=== PATIENT | male | born 1955 | race African-American/Black ===

== ENCOUNTER 2016-08-29 07:18 | Emergency (ER) | payer OTHER ==
[~2016-08-29] VITALS: Ht 177.8 cm; Wt 120.0 kg
[~2016-08-29 07:18] MED LIST: CEPH500C3 PO; IBUP800T23 PO; LISI-357 PO; POLY10O LEFT EYE; [UNRECOGNIZED DRUG - REMARK]
[2016-08-29 07:20] VITALS: BP 148/72; PULSE 83; RESP 17; TEMP 97.8; O2SAT 95
[2016-08-29] MEDS ORDERED: HYDR-2374 PO (07:48)
--- NOTE | 2016-08-29 07:48 | PD ---
HPI Chief Complaint: Bite or Sting Time Seen by Provider: 07:46 Travel History International Travel<30 days: No Contact w/Intl Traveler<30days: No Traveled to known affect area: No History of Present Illness HPI 60-year-old male presents emergency Department with complaint of dog bite wound to his left lower extremity that happened this morning. His dog were in a fight and he was trying to break them up and his leg got in between and he was bitten. He does not know if he is up-to-date on his tetanus vaccination. He denies paresthesias, loss of sensation, decreased range motion, decreased strength to the the affected extremity. Denies fever, chills, nausea, vomiting. Apply pressure to control bleeding. Has not taken any medications to alleviate his symptoms. No known allergies. No other modifying factors or associated signs and symptoms. PFSH Past Medical History Arthritis: Yes Blood Disorders: No Cancer: No Cardiovascular Problems: No Diabetes: No Diminished Hearing: No Endocrine: No Gastrointestinal Disorders: No Genitourinary: No Immune Disorder: No Musculoskeletal: No Neurologic: No Psychiatric: No Respiratory: No Thyroid Disease: No Past Surgical History Other Surgery: No Social History Alcohol Use: No Tobacco Use: Yes (/2 PPD) Substance Use: No Allergies-Medications (Allergen,Severity, Reaction): Coded Allergies: No Known Allergies (Verified , 04/10/13) Uncoded Allergies: [facility] (Allergy, Unknown, 04/27/09) Reported Meds & Prescriptions Reported Meds & Active Scripts Active Ibuprofen 600 Mg Tab 600 Mg PO Q8HR PRN Augmentin (Amoxicillin-Clavulanate) 875-125 mg Tab 875 Mg PO BID 10 Days not for use in CrCl <30 ml/min. Polytrim Opth (Polymyxin/Trimethoprim Sulfate) 10 Ml Soln 1 Drop LEFT EYE Q4 7 Days Keflex (Cephalexin Monohydrate) 500 Mg Cap 500 Mg PO QID 7 Days Reported Hydrocodone-Acetaminophen 10-300 Tab 1 Tab PO Q6H PRN [Pain Med?] Ibuprofen 800 Mg Tab 800 Mg PO TID Lisinopril 5 mg (Lisinopril) 5 Mg Tab 5 Mg PO DAILY Review of Systems Except as stated in HPI: all other systems reviewed are Neg Physical Exam Narrative GENERAL: Well-nourished, well-developed male patient, in no acute distress SKIN: Warm and dry. Left lower medial calf and lateral with lacerations; Medial calf with approximately 3 cm laceration; Lateral calf with 2 lacerations approximately 1 cm each. Left lower extremity is supple and non-tense with 2+ pedal pulse and sensory intact without erythema or edema; with full range of motion and strength. HEAD: Atraumatic. Normocephalic. EYES: Pupils equal and round. No scleral icterus. No injection or drainage. ENT: Mucosa pink and moist. Airway patent. NECK: Trachea midline. CARDIOVASCULAR: Regular rate. RESPIRATORY: No accessory muscle use. GASTROINTESTINAL: Obese. MUSCULOSKELETAL: No obvious deformities. No clubbing. No cyanosis. No edema. NEUROLOGICAL: Awake and alert. Oriented 3. No obvious cranial nerve deficits. Motor grossly within normal limits. Normal speech. PSYCHIATRIC: Appropriate mood and affect; insight and judgment normal. Data Data Last Documented VS Vital Signs Date Time Temp Pulse Resp B/P Pulse Ox O2 Delivery O2 Flow Rate FiO2 08/29/16 07:20 97.8 83 17 148/72 95 Orders Tetanus/Diphtheria Tox Adult (Tetanus/Di (08/29/16 08:00) Lidocaine 1% Inj (50 Ml) (Xylocaine 1% I (08/29/16 08:00) MDM Medical Decision Making Medical Screen Exam Complete: Yes Emergency Medical Condition: Yes Medical Record Reviewed: Yes Differential Diagnosis Dogbite wounds, laceration, contusion, abrasion Narrative Course 60-year-old male with dog bite wound and lacerations to his left lower leg. See my procedure note for laceration repair. Tetanus updated in the ER. Augmentin and ibuprofen prescribed for home. Instructed patient to to have sutures removed in 14-28 days. Procedures Procedure Narrative LACERATION LOCATION: Left Medial calf LENGTH: 3 cm NUMBER OF STITCHES/IRMA: 4 simple interrupted stitches REPAIR: The area of the laceration was prepped with Betadine and sterilely draped. The laceration was infiltrated with 1% lidocaine. The wound was copiously irrigated and explored without evidence of foreign body, tendon injury or neurovascular injury. The wound was closed using 4-0 Prolene. This was a single layer repair. A sterile dressing was applied. The patient was advised to keep the dressing clean and dry. Patient tolerated the procedure well. LACERATION LOCATION: Left lateral calf LENGTH: 1 cm NUMBER OF STITCHES/IRMA: 1 simple interrupted stitches REPAIR: The area of the laceration was prepped with Betadine and sterilely draped. The laceration was infiltrated with 1% lidocaine. The wound was copiously irrigated and explored without evidence of foreign body, tendon injury or neurovascular injury. The wound was closed using 4-0 Prolene. This was a single layer repair. A sterile dressing was applied. The patient was advised to keep the dressing clean and dry. Patient tolerated the procedure well. LACERATION LOCATION: Left lateral calf LENGTH: 1 cm NUMBER OF STITCHES/IRMA: 1 simple interrupted stitches REPAIR: The area of the laceration was prepped with Betadine and sterilely draped. The laceration was infiltrated with 1% lidocaine. The wound was copiously irrigated and explored without evidence of foreign body, tendon injury or neurovascular injury. The wound was closed using 4-0 Prolene. This was a single layer repair. A sterile dressing was applied. The patient was advised to keep the dressing clean and dry. Patient tolerated the procedure well. Diagnosis Primary Impression: Dog bite of left lower leg Qualified Code: S81.852A - Dog bite of left lower leg, initial encounter Additional Impression: Laceration of left lower leg Qualified Code: S81.812A - Laceration of left lower leg, initial encounter Referrals: Primary Care Physician Patient Instructions: Animal Bite (ED), Care For Your Stitches (ED), General Instructions, Laceration (ED) Departure Forms: Tests/Procedures, Work Release Enter return to work date: Sep 01, 2016 Additional Instructions: Keep area clean and dry Limit left leg activity to decrease risk of sutures coming undone Ibuprofen or Tylenol as directed and as needed for pain and inflammation Ice pack to area as needed to decrease pain Return to the emergency department or follow-up with her primary care provider in 14-28 days for suture removal Follow up with primary care provider Return to the emergency department immediately with worsening of symptoms Med/Other Pt SpecificInfo: Prescription(s) given Scripts Ibuprofen 600 Mg [id number] Mg PO Q8HR PRN (PAIN) #20 TAB Ref 0 Prov:Yudelka Hastings 08/29/16 Amoxicillin-Clavulanate (Augmentin)875-125 mg [id number] Mg PO BID 10 Days Ref 0 not for use in CrCl <30 ml/min. Prov:Yudelka Hastings 08/29/16 Disposition: DISCHARGE HOME Condition: Stable Yudelka Hastings Aug 29, 2016 07:48
[2016-08-29] MEDS ORDERED: TETANUS/DIPHTHERIA TOXOID ADULT 0.5 ML VIAL IM ONE (08:00)
[2016-08-29] MEDS ORDERED: LIDOCAINE HCL 1% 50 ML VIAL INFIL ONE (08:00)
[2016-08-29] MEDS ORDERED: IBUP-232 PO (08:59)
[2016-08-29] MEDS ORDERED: AUGM875T PO (08:59)
== END 2016-08-29 17:12 | disposition home or self-care (01) ==
LOC: NEPB 07:18 → NEPC 17:12
DX: S81.852A Open bite, left lower leg, initial encounter (principal); S81.812A Laceration without foreign body, left lower leg, initial encounter; F17.210 Nicotine dependence, cigarettes, uncomplicated; W54.0XXA Bitten by dog, initial encounter; Z23 Encounter for immunization
CPT/HCPCS: 12002; 90471; 90714

== ENCOUNTER 2016-09-06 10:08 | Emergency (ER) | payer OTHER ==
[~2016-09-06] VITALS: Ht 177.8 cm; Wt 136.5 kg
[~2016-09-06 10:08] MED LIST changes: +AUGM875T PO; +HYDR-2374 PO; +IBUP-232 PO
[2016-09-06 10:15] VITALS: BP 157/81; PULSE 73; RESP 18; TEMP 98.9; O2SAT 97
--- NOTE | 2016-09-06 10:39 | PD ---
HPI Chief Complaint: Wound/Suture/Staple Re-Check Time Seen by Provider: 10:35 Travel History International Travel<30 days: No Contact w/Intl Traveler<30days: No Traveled to known affect area: No History of Present Illness HPI 60-year-old male presents for suture removal to his left leg. He denies any fever or redness or concerns to the sutures. Location left calf. Duration is 8 days ago. PFSH Past Medical History Hx Anticoagulant Therapy: No Arthritis: Yes Blood Disorders: No Cancer: No Cardiovascular Problems: Yes (HTN) Diabetes: No Diminished Hearing: No Endocrine: No Gastrointestinal Disorders: No Genitourinary: No Immune Disorder: No Musculoskeletal: No Neurologic: No Psychiatric: No Respiratory: No Thyroid Disease: No Past Surgical History Other Surgery: No Social History Alcohol Use: No Tobacco Use: Yes (1/2 PPD) Substance Use: No Allergies-Medications (Allergen,Severity, Reaction): Coded Allergies: No Known Allergies (Verified , 09/06/16) Uncoded Allergies: [facility] (Allergy, Unknown, 04/27/09) Reported Meds & Prescriptions Reported Meds & Active Scripts Active Ibuprofen 600 Mg Tab 600 Mg PO Q8HR PRN Augmentin (Amoxicillin-Clavulanate) 875-125 mg Tab 875 Mg PO BID 10 Days not for use in CrCl <30 ml/min. Reported Hydrocodone-Acetaminophen 10-300 Tab 1 Tab PO Q6H PRN [Pain Med?] Review of Systems Except as stated in HPI: all other systems reviewed are Neg Physical Exam Narrative GENERAL: Well-nourished, well-developed patient. Well-appearing SKIN: Sutures noted to left leg in multiple spots without active signs of infection EYES: No injection or drainage. ENT: No nasal drainage noted. NECK: Supple, trachea midline. CARDIOVASCULAR: Regular rate and rhythm RESPIRATORY: No increased effort. No accessory muscle use. NEUROLOGICAL: Awake and alert. Moves all extremities. Normal speech. Data Data Last Documented VS Vital Signs Date Time Temp Pulse Resp B/P Pulse Ox O2 Delivery O2 Flow Rate FiO2 09/06/16 10:15 98.9 73 18 157/81 97 Orders Remove Sutures (09/06/16 10:37) MDM Medical Decision Making Medical Screen Exam Complete: Yes Emergency Medical Condition: Yes Differential Diagnosis Suture removal Narrative Course Patient given wound care instructions and advised to follow with primary when antibiotic course is complete to make sure that he does not need additional antibiotics. Given return instructions for emergency department Diagnosis Primary Impression: Visit for suture removal Patient Instructions: General Instructions Additional Instructions: return as needed, follow with primary in 1-2 days for recheck Med/Other Pt SpecificInfo: No Change to Meds Disposition: 01 DISCHARGE HOME Condition: Stable Faviola Nicole MD Sep 06, 2016 10:39
== END 2016-09-06 10:48 | disposition home or self-care (01) ==
LOC: PHEFT 10:08
DX: Z48.02 Encounter for removal of sutures (principal)
CPT/HCPCS: 99281

== ENCOUNTER 2016-09-18 10:32 | Emergency (ER) | payer OTHER ==
[~2016-09-18] VITALS: Ht 177.8 cm; Wt 140.0 kg
[~2016-09-18 10:32] MED LIST changes: -CEPH500C3 PO; -IBUP800T23 PO; -LISI-357 PO; -POLY10O LEFT EYE
[2016-09-18 10:33] VITALS: BP 166/88; PULSE 86; RESP 24; TEMP 98; O2SAT 100
--- NOTE | 2016-09-18 12:26 | PD ---
HPI Chief Complaint: Wound/Suture/Staple Re-Check Time Seen by Provider: 12:21 Travel History International Travel<30 days: No Contact w/Intl Traveler<30days: No Traveled to known affect area: No History of Present Illness HPI 60-year-old male presents to the emergency department for wound recheck to his dog bite that occurred on September 29. I saw this patient in the ER on September 29 and close the wounds. I did prescribe Augmentin which the patient has taken completely. His also had dog bite to her lower leg and she is currently in the hospital and was told she has Escherichia coli growing in her wound so she told her he needed to come and have his wound checked. He denies fever, chills, nausea, vomiting. Denies drainage from his wound sites. Denies paresthesias, loss of sensation, decreased range of motion, decreased strength to the affected extremity. He is up-to-date on his tetanus vaccination. He has no other emergent medical complaints today. No known allergies. No other modifying factors or associated signs and symptoms. History Past Medical Histgory Hx Cancer: No Social History Alcohol Use: No Tobacco Use: Yes (/2 PPD) Allergies-Medications (Allergen,Severity, Reaction): Coded Allergies: No Known Allergies (Verified , 09/18/16) Reported Meds & Prescriptions Reported Meds & Active Scripts Active Ibuprofen 600 Mg Tab 600 Mg PO Q8HR PRN Augmentin (Amoxicillin-Clavulanate) 875-125 mg Tab 875 Mg PO BID 10 Days not for use in CrCl <30 ml/min. Reported Hydrocodone-Acetaminophen 10-300 Tab 1 Tab PO Q6H PRN [Pain Med?] Review of Systems Except as stated in HPI: all other systems reviewed are Neg Physical Exam Narrative GENERAL: Well-nourished, well-developed male patient, in no acute distress; afebrile, nontoxic-appearing SKIN: Warm and dry. Scabbed wound to the left medial grigsby and scabbed wounds to the left lateral calf area; all areas are without erythema, edema, drainage. There are no signs of infection. The left lower committee is supple and non- tense with 2+ pedal pulse and sensory intact. HEAD: Atraumatic. Normocephalic. EYES: Pupils equal and round. No scleral icterus. No injection or drainage. ENT: Mucosa pink and moist. Airway patent. NECK: Trachea midline. CARDIOVASCULAR: Regular rate. RESPIRATORY: No accessory muscle use. GASTROINTESTINAL: Rounded. MUSCULOSKELETAL: No obvious deformities. No clubbing. No cyanosis. No edema. NEUROLOGICAL: Awake and alert. Oriented 3. No obvious cranial nerve deficits. Motor grossly within normal limits. Normal speech. PSYCHIATRIC: Appropriate mood and affect; insight and judgment normal. Data Data Last Documented VS Vital Signs Date Time Temp Pulse Resp B/P Pulse Ox O2 Delivery O2 Flow Rate FiO2 09/18/16 10:33 98.0 86 24 166/88 100 Room Air MDM Medical Screen Exam Complete: Yes Emergency Medical Condition: No Differential Diagnosis Wound recheck, medical clearance, wound infection Narrative Course This is a 60-year-old male that I saw on August 29 after sustaining a dog bite wound to his left lower extremity. He was prescribed Augmentin which she completed the full course of antibiotics. His was also attacked by the dog and she is currently in the hospital having reconstructive surgery to her leg and they told her she had Escherichia coli growing in her wound. She was concerned and told him that he should go to the ER and have his wound checked. The dog bite wounds to his left lower extremity are scabbed over and without erythema, edema, drainage. There are no signs of infection. The left lower extremity is supple and nontender 2+ pedal pulses and sensory intact. The patient is afebrile and nontoxic appearing. He denies fever, chills, nausea, vomiting. I discussed signs of infection and instructed patient to return with any concern or development of symptoms. Patient verbalizes understanding and agreement. Vital signs are stable and the patient is stable for outpatient follow-up and treatment. The patient has no urgent or emergent medical complaints. There is no emergent or urgent medical need at this time. I instructed the patient to follow up with their primary care provider. A medical screening exam was performed: At the time of evaluation the presenting medical condition was determined not to be of an emergent nature. The patient was given the option of receiving additional care, but declined. Patient was given options for additional community resources from which to obtain care. The Patient Has Been advised to seek medical attention for their presenting complaint. The patient has been advised to return to the ER at any time if an emergent condition develops. Primary Impression: Encounter for medical screening examination Condition: Stable Yudelka Hastings [facility] Sep 18, 2016 12:26
== END 2016-09-18 12:31 | disposition left against medical advice (07) ==
LOC: NETRI 10:32
DX: S81.852D Open bite, left lower leg, subsequent encounter (principal); W54.0XXD Bitten by dog, subsequent encounter
CPT/HCPCS: 99281

== ENCOUNTER 2017-10-11 11:42 | Emergency (ER) | payer OTHER ==
[~2017-10-11] VITALS: Ht 182.9 cm; Wt 128.0 kg
[2017-10-11 11:51] VITALS: BP 177/84; PULSE 85; RESP 16; TEMP 98.8; O2SAT 96
[2017-10-11] MEDS ORDERED: LISI2.5T3 PO (12:06)
[2017-10-11] MEDS ORDERED: HYDR-4107 PO (12:06)
[2017-10-11] MEDS ORDERED: NORT10CA PO (12:06)
[2017-10-11] MEDS ORDERED: METOCLOPRAMIDE HCL 10 MG TAB PO ONE (12:15)
[2017-10-11] MEDS ORDERED: ALUMINUM/MAGNESIUM/SIMETH 30 ML CUP PO ONE (12:15)
[2017-10-11] MEDS ORDERED: PANTOPRAZOLE SOD 40 MG DELAYED RELEASE TAB PO ONE (12:15)
--- NOTE | 2017-10-11 12:15 | PD ---
HPI Chief Complaint: GI Complaint Time Seen by Provider: 11:55 Travel History International Travel<30 days: No Contact w/Intl Traveler<30days: No Traveled to known affect area: No History of Present Illness HPI This 61-year-old male is complaining of some epigastric discomfort. He says that yesterday he ate a steak. He does not need to take very often because he does not have any teeth. He did not chew it very well and he feels that that is triggered off some epigastric discomfort. He says when he tries to belch she hands. He has no trouble swallowing he has been eating and drinking well since then. He has a history of headaches and he takes hydrocodone and nortriptyline for his headache. He is on lisinopril for high blood pressure. He has a prescription for ibuprofen but does not take it very much. He does not drink alcohol. PFSH Past Medical History Hx Anticoagulant Therapy: No Arthritis: Yes Blood Disorders: No Cancer: No Cardiovascular Problems: Yes (htn on meds) Diabetes: No Diminished Hearing: No Endocrine: No Gastrointestinal Disorders: No Genitourinary: No Hypertension: Yes Immune Disorder: No Medical other: Yes (TBI) Musculoskeletal: No Neurologic: No Psychiatric: No Respiratory: No Thyroid Disease: No Tetanus Vaccination: < 5 Years Influenza Vaccination: No Past Surgical History Surgical History: No Previous Surgery Other Surgery: No Social History Alcohol Use: No Tobacco Use: Yes (1 PK WEEK) Substance Use: No Allergies-Medications (Allergen,Severity, Reaction): Coded Allergies: No Known Allergies (Verified Adverse Reaction, Unknown, 10/11/17) Reported Meds & Prescriptions Reported Meds & Active Scripts Active Reported Hydrocodone-Acetaminophen 5-300 Mg Tab 1 Tab PO DIRECTED PRN Nortriptyline (Nortriptyline HCl) 10 Mg Cap Unknown Dose PO HS Lisinopril 2.5 Mg Tab Unknown Dose PO DAILY Hydrocodone-Acetaminophen 10-300 Tab 1 Tab PO Q6H PRN Review of Systems General / Constitutional: No: Fever, Chills Eyes: No: Diploplia, Blurred Vision HENT: No: Headaches, Vertigo Cardiovascular: No: Chest Pain or Discomfort, Palpitations Respiratory: No: Cough, Shortness of Breath Gastrointestinal: Positive: Nausea, Abdominal Pain, No: Vomiting Genitourinary: No: Urgency, Frequency Skin: No Rash, No Itching Physical Exam Narrative GENERAL: Well-developed male SKIN: Focused skin assessment warm/dry. HEAD: Atraumatic. Normocephalic. EYES: Pupils equal and round. No scleral icterus. No injection or drainage. ENT: No nasal bleeding or discharge. Mucous membranes pink and moist. NECK: Trachea midline. No JVD. CARDIOVASCULAR: Regular rate and rhythm. No murmur appreciated. RESPIRATORY: No accessory muscle use. Clear to auscultation. Breath sounds equal bilaterally. GASTROINTESTINAL: Abdomen soft, mild epigastric tenderness, nondistended. Hepatic and splenic margins not palpable. MUSCULOSKELETAL: No obvious deformities. No clubbing. No cyanosis. No edema. NEUROLOGICAL: Awake and alert. No obvious cranial nerve deficits. Motor grossly within normal limits. Normal speech. PSYCHIATRIC: Appropriate mood and affect; insight and judgment normal. Data Data Last Documented VS Vital Signs Date Time Temp Pulse Resp B/P (MAP) Pulse Ox O2 Delivery O2 Flow Rate FiO2 10/11/17 13:00 76 16 96 Room Air 10/11/17 11:51 98.8 177/84 (115) Orders Orders Electrocardiogram (10/11/17 12:12) Al-Mag Hy-Si 40-40-4 Mg/Ml Liq (Mag-Al P (10/11/17 12:15) Metoclopramide (Reglan) (10/11/17 12:15) Pantoprazole (Protonix) (10/11/17 12:15) [facility] Medical Decision Making Medical Screen Exam Complete: Yes Emergency Medical Condition: Yes Medical Record Reviewed: Yes Differential Diagnosis Differential includes gastritis, GERD, hiatal hernia Narrative Course He has been given Reglan and Protonix with some improvement. I do not think a CT scan would be helpful. I will prescribe Prilosec Diagnosis Primary Impression: GERD (gastroesophageal reflux disease) Scripts Omeprazole (Omeprazole) 20 Mg Tab 20 MG PO DAILY, #30 TAB 0 Refills Prov: Tian Orozco MD 10/11/17 Disposition: 01 DISCHARGE HOME Condition: Stable Tian Orozco MD Oct 11, 2017 12:15
[2017-10-11 13:00] VITALS: PULSE 76; RESP 16; O2SAT 96
[2017-10-11] MEDS ORDERED: OMEP20TA93 PO (13:04)
--- NOTE | 2017-10-12 13:25 | EKG ---
Date Performed: 10/11/2017 Time Performed: 12:19:40 PTAGE: 61 years EKG: Sinus rhythm RIGHT BUNDLE BRANCH BLOCK LEFT ANTERIOR FASCICULAR BLOCK MINIMAL VOLTAGE CRITERIA FOR LVH, CONSIDER NORMAL VARIANT Compared to previous tracing left axis deviation and right bundle branch block are new ABNORMAL ECG PREVIOUS TRACING : 07/29/07 DOCTOR: Jose Green Interpretating Date/Time 10/12/2017 13:24:45
== END 2017-10-11 13:12 | disposition home or self-care (01) ==
LOC: PHED 11:42
DX: K21.9 Gastro-esophageal reflux disease without esophagitis (principal); R10.13 Epigastric pain; M19.90 Unspecified osteoarthritis, unspecified site; I10 Essential (primary) hypertension; I45.10 Unspecified right bundle-branch block; I44.4 Left anterior fascicular block; R94.31 Abnormal electrocardiogram [ECG] [EKG]; F17.200 Nicotine dependence, unspecified, uncomplicated; Z87.820 Personal history of traumatic brain injury
CPT/HCPCS: 93005; 99283

== ENCOUNTER 2017-11-06 13:30 | Emergency (ER) | payer OTHER ==
[~2017-11-06] VITALS: Ht 180.3 cm; Wt 130.0 kg
[~2017-11-06 13:30] MED LIST changes: -AUGM875T PO; +HYDR-4107 PO; -IBUP-232 PO; +LISI2.5T3 PO; +NORT10CA PO; +OMEP20TA93 PO; -[UNRECOGNIZED DRUG - REMARK]
[2017-11-06 13:33] VITALS: BP 143/89; PULSE 96; RESP 17; TEMP 98.2; O2SAT 100
--- NOTE | 2017-11-06 14:45 | PD ---
HPI Chief Complaint: Medical Clearance Time Seen by Provider: 14:41 Travel History International Travel<30 days: No Contact w/Intl Traveler<30days: No Traveled to known affect area: No History of Present Illness HPI 62-year-old -[place] male presents emergency department requesting EKG and chest x-ray for upcoming knee surgery by Dr. Wagner the orthopedist. Patient states he attempted to get this done at his primary care office "was unable to get it performed." Patient states he is currently looking for a new primary care physician. Patient is scheduled for lab work tomorrow at [facility] or [facility] He has no acute medical complaints. He has no known drug allergies. PFSH Past Medical History Hx Anticoagulant Therapy: No Arthritis: Yes Blood Disorders: No Cancer: No Cardiovascular Problems: Yes (htn on meds) Diabetes: No Diminished Hearing: No Endocrine: No Gastrointestinal Disorders: No Genitourinary: No Hypertension: Yes Immune Disorder: No Musculoskeletal: No Neurologic: No Psychiatric: No Respiratory: No Thyroid Disease: No Past Surgical History Other Surgery: No Social History Alcohol Use: No Tobacco Use: Yes (1 PK WEEK) Substance Use: No Allergies-Medications (Allergen,Severity, Reaction): Coded Allergies: No Known Allergies (Verified Adverse Reaction, Unknown, 10/11/17) Reported Meds & Prescriptions Reported Meds & Active Scripts Active Omeprazole 20 Mg Tab 20 Mg PO DAILY Reported Hydrocodone-Acetaminophen 5-300 Mg Tab 1 Tab PO DIRECTED PRN Nortriptyline (Nortriptyline HCl) 10 Mg Cap Unknown Dose PO HS Lisinopril 2.5 Mg Tab Unknown Dose PO DAILY Hydrocodone-Acetaminophen 10-300 Tab 1 Tab PO Q6H PRN Review of Systems Except as stated in HPI: all other systems reviewed are Neg General / Constitutional: No: Fever Eyes: No: Visual changes HENT: No: Headaches Cardiovascular: No: Chest Pain or Discomfort Respiratory: No: Shortness of Breath Gastrointestinal: No: Abdominal Pain Genitourinary: No: Dysuria Musculoskeletal: No: Pain Skin: No Rash Neurologic: No: Weakness Psychiatric: No: Depression Endocrine: No: Polydipsia Hematologic/Lymphatic: No: Easy Bruising Physical Exam Narrative GENERAL: Patient appears in no acute distress. SKIN: Warm and dry. Normal color. Normal turgor. HEAD: Atraumatic. Normocephalic. EYES: Pupils equal and round. No scleral icterus. No injection or drainage. ENT: No nasal bleeding or discharge. Mucous membranes pink and moist. Pharynx is clear. Airways patent. NECK: Trachea midline. Supple CARDIOVASCULAR: Regular rate and rhythm. RESPIRATORY: No accessory muscle use. Clear to auscultation. Breath sounds equal bilaterally. GASTROINTESTINAL: Abdomen soft, non-tender, nondistended. Hepatic and splenic margins not palpable. MUSCULOSKELETAL: Extremities without clubbing, cyanosis, or edema. No obvious deformities. Patient has decreased range of motion in both lower extremities more on the right than the left. No other acute findings are noted. NEUROLOGICAL: Awake and alert. No obvious cranial nerve deficits. Motor grossly within normal limits. Five out of 5 muscle strength in the arms and legs. Normal speech. PSYCHIATRIC: Appropriate mood and affect; insight and judgment normal. Data Data Last Documented VS Vital Signs Date Time Temp Pulse Resp B/P (MAP) Pulse Ox O2 Delivery O2 Flow Rate FiO2 11/06/17 13:33 98.2 96 17 143/89 (107) 100 Orders Orders Electrocardiogram (11/06/17 ) Chest, Single Ap (11/06/17 14:41) MDM Medical Decision Making Medical Screen Exam Complete: Yes Emergency Medical Condition: Yes Medical Record Reviewed: Yes Differential Diagnosis Arthritic knee. Knee pain. Need for medical clearance for surgery. Narrative Course EKG is performed. EKG shows sinus rhythm with marked left axis deviation, right bundle branch block, but without significant acute findings. This is reviewed with Dr. Walker. Chest x-ray is performed Chest x-ray is unremarkable for acute findings.. Patient to follow-up with Dr. Wagner's office as scheduled. Diagnosis Primary Impression: Encounter for medical screening examination Patient Instructions: General Instructions Additional Instructions: EKG is performed. EKG shows sinus rhythm with marked left axis deviation, right bundle branch block, but without significant acute findings. This is reviewed with Dr. Walker. Chest x-ray is performed Chest x-ray is unremarkable for acute findings.. Patient to follow-up with Dr. Wagner's office as scheduled. Med/Other Pt SpecificInfo: No Change to Meds Disposition: 01 DISCHARGE HOME Condition: Stable Sal Babcock November 06, 2017 14:45
--- NOTE | 2017-11-06 15:31 | RADRPT ---
EXAM DATE: 11/06/2017 3:23 PM EDT AGE/SEX: 62 years / Male INDICATIONS: Cough. CLINICAL DATA: This is the patient's initial encounter. Patient reports that signs and symptoms have been present for 3 days and indicates a pain score of 0/10. MEDICAL/SURGICAL HISTORY: Hypertension. None. COMPARISON: No prior [facility] exams available for comparison. FINDINGS: A single AP view of the chest demonstrates the lungs to be symmetrically aerated without e vidence of mass, infiltrate or effusion. The cardiomediastinal contours are unremarkable. Osseous s tructures are intact. CONCLUSION: No acute disease Electronically signed by: Alexsander Ramos MD 11/06/2017 3:30 PM EDT
--- NOTE | 2017-11-06 18:55 | EKG ---
Date Performed: 11/06/2017 Time Performed: 14:45:28 PTAGE: 62 years EKG: Sinus rhythm MARKED LEFT AXIS DEVIATION RIGHT BUNDLE BRANCH BLOCK MINIMAL VOLTAGE CRITERIA FOR LVH, CONSIDER NORM AL VARIANT POSSIBLE SEPTAL MYOCARDIAL INFARCTION ABNORMAL ECG No significant change from prior electr ocardiogram. DOCTOR: Dc Lizarraga Interpretating Date/Time 11/06/2017 18:54:42
== END 2017-11-06 16:20 | disposition home or self-care (01) ==
LOC: NEPD 13:30
DX: I45.10 Unspecified right bundle-branch block (principal); I10 Essential (primary) hypertension; F17.200 Nicotine dependence, unspecified, uncomplicated
CPT/HCPCS: 71045; 93005

== ENCOUNTER 2017-11-26 05:34 | Inpatient (IN) | payer OTHER, MEDICAID, MEDICARE ==
[~2017-11-26] VITALS: Ht 177.8 cm; Wt 132.5 kg
[~2017-11-26 05:34] MED LIST changes: -HYDR-4107 PO; +LISI10TA3 PO; -LISI2.5T3 PO
[2017-11-26] MEDS ORDERED: METOPROLOL TARTRATE 25 MG TAB PO PRN (06:15)
[2017-11-26] MEDS ORDERED: VANCOMYCIN 1000 MG/NS 250 ML (for <70 kg) IV SCH (06:15)
[2017-11-26] MEDS ORDERED: CHLORHEXIDINE GLUCONATE 4% SOLN 120 ML BTL TOPICAL SCH (06:15)
[2017-11-26] MEDS ORDERED: TRANEXAMIC ACID IV SCH (06:15)
[2017-11-26] MEDS ORDERED: SODIUM CHLORIDE 0.9% IV SCH (06:15)
[2017-11-26] MEDS ORDERED: ROPIVACAINE PERI-ARTICULAR INJECTION. P-ARTICULR SCH ×5 (06:15)
[2017-11-26] MEDS ORDERED: POVIDONE IODINE 5% (ANTISEPSIS KIT) 4 APPLICATIONS EACH NARE PRN (06:15)
[2017-11-26] MEDS ORDERED: CHLORHEXIDINE GLUCONATE 2 % 1 PACK (2 CLOTHS) TOPICAL PRN (06:15)
[2017-11-26] MEDS ORDERED: DEXAMETHASONE SOD PHOS 20 MG/5 ML VIAL IV PUSH PRN (06:15)
[2017-11-26] MEDS ORDERED: LACTATED RINGER'S 1000 ML IV PRN (06:15)
[2017-11-26] MEDS ORDERED: ceFAZolin 2 GM PREMIX 50 ML IV SCH (06:15)
[2017-11-26] MEDS ORDERED: SODIUM CHLORID 0.9% 500 ML IV PRN (06:15)
[2017-11-26] MEDS ORDERED: POVIDONE IODINE 7.5% SCRUB 118 ML BOTTLE TOPICAL SCH (06:15)
[2017-11-26] MEDS ORDERED: TRANEXAMIC PERI-ARTICULAR 3,000 MG/NS 100 ML P-ARTICULR SCH ×2 (06:15)
[2017-11-26] MEDS ORDERED: HYDR-3288 PO (06:41)
[2017-11-26] MEDS ORDERED: ASPI81CH6 CHEW (06:42)
[2017-11-26] MEDS ORDERED: GENTAMICIN SULFATE 80 MG/2 ML VIAL ONE (06:44)
[2017-11-26] MEDS ORDERED: ZOLPIDEM TARTRATE 5 MG TAB PO PRN (06:45)
[2017-11-26] MEDS ORDERED: ACETAMINOPHEN/HYDROcodone 325 MG/7.5 MG TAB PO PRN (06:45)
[2017-11-26] MEDS ORDERED: MORPHINE SULFATE 4 MG/ML INJ IV PUSH PRN (06:45)
[2017-11-26] MEDS ORDERED: Post-op Orders (for Pharmacy) XX ONE (06:45)
[2017-11-26] MEDS ORDERED: diphenhydrAMINE HCL 50 MG/ML VIAL IV PUSH PRN (06:45)
[2017-11-26] MEDS ORDERED: NALOXONE HCL 0.4 MG/ML AMP IV PUSH PRN (06:45)
[2017-11-26] MEDS ORDERED: ONDANSETRON HCL 4 MG/2 ML VIAL IVP PRN (06:45)
[2017-11-26 06:56] VITALS: PULSE 68
[2017-11-26] MEDS ORDERED: BUPIVACAINE PF 0.75% DEX-WATER INJ 2 ML AMP ONE (07:06)
[2017-11-26] MEDS: PANTOPRAZOLE SOD 20 MG DELAYED RELEASE TAB PO SCH (09:00)
[2017-11-26] MEDS: LISINOPRIL 10 MG TAB PO SCH (09:00)
--- NOTE | 2017-11-26 10:52 | MP ---
cc: Pa Wagner MD DATE OF OPERATION: 11/26/2017 PREOPERATIVE DIAGNOSIS: Left knee osteoarthritis. POSTOPERATIVE DIAGNOSIS: Left knee osteoarthritis. PROCEDURE: Left total knee arthroplasty. SURGEON: Pa Wagner MD ANESTHESIA: ALVARO Sainz ANESTHESIA: General with a femoral nerve adductor canal block. ESTIMATED BLOOD LOSS: 100 mL. TOURNIQUET TIME: 50 minutes at 300 mmHg. COMPLICATIONS: None. IMPLANTS USED: DePuy Attune size 8 posterior stabilized femoral component, size 8 rotating platform tibial baseplate, size 8 mm polyethylene tibial insert, size 41 patella. JUSTIFICATION: This patient is a 62-year-old male with a history of severe end-stage osteoarthritis involving the left knee. He has severe disabling pain with standing, walking, ambulation, weightbearing activities, and even severe pain at rest. He has failed greater than 3 months of nonoperative conservative treatment to include medication therapy, injections, ambulatory assisted aids, home exercise program, activity modification and weight loss. X-rays of the left knee revealed severe osteoarthritis with [id number] joint space narrowing, subchondral sclerosis, subchondral cyst, osteophyte formation with varus deformity. The patient was counseled on the risks, benefits and alternatives to a total knee arthroplasty. The risks were discussed, which include, but not limited to anesthesia, bleeding, infection, damage to nerves and blood vessels, pain, stiffness, failure of components, blood clots, pulmonary embolism, and even . The patient's pain is severe. He favored the benefits over the risks and did wish to proceed with surgery. PROCEDURE IN DETAIL: Written consent was obtained. The patient was identified by name, taken to the operating room, placed supine on the operating room table and general anesthesia was administered, as well as 2 grams of IV Ancef and 1 gram of IV vancomycin. A well-padded tourniquet was placed on the left thigh. The left lower extremity prepped and draped using isopropyl alcohol, Hibiclens solution and ChloraPrep solution. After timeout was performed, an Esmarch bandage was used to exsanguinate the left lower extremity. Tourniquet inflated to 300 mmHg. A longitudinal incision was made over the anterior aspect of the left knee. A medial parapatellar arthrotomy was performed. The patella was everted. The patellar resection guide was used to resect 9 mm of patella. The size 41 mm guide was placed. Three drill holes were placed and the 41 mm trial fit well. Attention was turned to the femur where an intramedullary guide was placed. The distal femoral guide was set to remove 10 mm of distal femur, 5 degrees off the anatomic valgus axis alignment. An oscillating saw was used to perform the distal femoral cut. Attention was turned to the tibia where an extramedullary tibia guide was set to remove 5 mm off the lowest portion of the medial tibial plateau. The tibial guide was pinned in placed and a tibial cut was performed. A 5 mm spacer block showed full extension. Attention was turned back to the femur where the AP sizing block measured a size 8. The anterior reference 3-degree external rotation guide was used to pin a size [address] The anterior, posterior and chamfer cuts were performed. A size 8 PCL box cut was pinned in placed and the PCL was box cut with an oscillating saw. The medial and lateral meniscus remnants were removed, as well as, bone and soft tissue debris from the posterior portion of the knee. The medial and lateral meniscus remnants were removed, again, as well as bone and soft tissue debris from the posterior portion of the knee. A size 8 tibia baseplate was pinned in place and the tibia was drilled and punched. Trial components were evaluated and final components cemented in place. With the current components, the leg could achieve full extension to 0 degrees and flexion to 140. No evidence of the tibia lift off. Varus/valgus balance appeared appropriate and symmetric and the patella was noted to track centrally. Tourniquet deflated, and Bovie cautery were used for hemostasis. Surgical wound was thoroughly irrigated with sterile saline pulse lavage antibiotic impregnated solution. The arthrotomy incision was closed with #1 Vicryl suture, subcutaneous layer closed with 2-0 Vicryl and skin was closed with Dermabond. Sterile dressing applied. The patient tolerated the procedure well with no intraoperative complications noted. Yosvany Owusu PA-C was present for the entire procedure to include patient positioning and the procedure itself. The medical necessity of a physician graduate research assistant was indicated in this case due to the complexity of the procedure. He assisted with appropriate manipulation of the leg and also retraction of muscle, tendon, bone, and neurovascular structures. He assisted with preparation of bone and also implantation of the prosthetic replacement. MD SO Stanley/JOELLEN , 10:30 AM , 10:52 AM
[2017-11-26] MEDS ORDERED: DO NOT ADM ANY ANTICOAGULANT DRUGS PRN (10:54)
[2017-11-26] MEDS: SODIUM CHLOR 0.9% 1000 ML INJ 1,000 ML IV SCH ×3 (11:30→22:07)
--- NOTE | 2017-11-26 11:46 | RADRPT ---
EXAM DATE: 11/26/2017 11:42 AM EDT AGE/SEX: 62 years / Male INDICATIONS: Left post-op total knee replacement. CLINICAL DATA: This is the patient's initial encounter. Patient reports that signs and symptoms have been present for 1 day and indicates a pain score of 0/10. MEDICAL/SURGICAL HISTORY: Hypertension. Smoker. None. COMPARISON: No prior exams available for comparison. FINDINGS: AP and lateral views of the knee following arthroplasty reveals a prosthesis in anatomic alignment. F racture is not appreciated. CONCLUSION: Status post total knee arthroplasty. Louie Pantoja MD FACR Electronically signed by: Louie Pantoja MD 11/26/2017 11:45 AM EDT
[2017-11-26] MEDS ORDERED: DEXAMETHASONE SOD PHOS 4 MG/ML VIAL IV ONE (12:00)
[2017-11-26] MEDS ORDERED: LABETALOL HCL 100 MG/20 ML VIAL IV ONE (12:00)
[2017-11-26] MEDS ORDERED: ONDANSETRON HCL 4 MG/2 ML VIAL IV ONE (12:00)
[2017-11-26] MEDS ORDERED: ROCURONIUM INJ 50 MG/5 ML SYRINGE IV PUSH ONE (12:00)
[2017-11-26] MEDS ORDERED: LACTATED RINGER'S 1000 ML INJ 1,000 ML IV ONE (12:00)
[2017-11-26] MEDS ORDERED: PROPOFOL 200 MG/20 ML AMP IV ONE (12:00)
[2017-11-26] MEDS ORDERED: NEOSTIGMINE 5 MG/5 ML SYRINGE IV PUSH ONE (12:00)
[2017-11-26] MEDS ORDERED: GLYCOPYRROLATE 1 MG/5 ML SYRINGE IV PUSH ONE (12:00)
[2017-11-26] MEDS ORDERED: LIDOCAINE HCL 1% PF 5 ML SYRINGE OTHER ONE (12:00)
[2017-11-26] MEDS ORDERED: ENALAPRILAT 1.25 MG/ML VIAL IV PUSH PRN (12:15)
--- NOTE | 2017-11-26 12:20 | PD.CONS ---
HPI Service [facility] Consult Requested By Dr. Wagner Reason for Consult Opinion recommendation on treatment of patient's hypertension and GERD Primary Care Physician Alexsander Agustin MD Diagnoses: History of Present Illness 62-year-old pleasant -[place] male who has had long-term history of left knee pain despite conservative treatment electively underwent a left total knee replacement with Dr. Wagner today. He states that his blood pressure is usually controlled well at home on his antihypertensives. He denies a history of constipation or any history of blood in the stools. Currently, postoperatively, his pain is controlled adequately. Review of Systems Constitutional: DENIES: Fatigue, Fever, Chills, Change in appetite Endocrine: DENIES: Heat/cold intolerance Eyes: DENIES: Blurred vision, Eye pain, Vision loss Ears, nose, mouth, throat: DENIES: Hearing loss, Nasal discharge, Throat pain, Ear Pain, Sinus Pain Respiratory: DENIES: Cough, Shortness of breath Cardiovascular: DENIES: Chest pain, Palpitations, Dyspnea on Exertion, Lower Extremity Edema Gastrointestinal: DENIES: Abdominal pain, Black stools, Bloody stools, Constipation, Diarrhea, Nausea, Vomiting Musculoskeletal: COMPLAINS OF: Joint pain (Left knee pain as described in HPI) , DENIES: Muscle aches, Stiffness Integumentary: DENIES: Rash Hematologic/lymphatic: DENIES: Bruising, Lymphadenopathy Immunologic/allergic: DENIES: Eczema Neurologic: DENIES: Headache, Localized weakness, Paresthesias Psychiatric: DENIES: Anxiety, Depression, Suicidal Ideation Past Family Social History Allergies: Coded Allergies: No Known Allergies (Verified Adverse Reaction, Unknown, 11/23/17) Past Medical History Arthritis Hypertension GERD Past Surgical History None Reported Medications lisinopril 10 mg p.o. daily [facility] 1-2 every 6 hours as needed for pain Nortriptyline 10 mg p.o. daily and 20 mg at evening Prilosec 20 mm p.o. daily Family History None significant per patient Social History States that he quit smoking during the past 20 days. Was smoking half a pack of cigarettes per day previously Physical Exam Vital Signs Vital Signs Date Time Temp Pulse Resp B/P (MAP) Pulse Ox O2 Delivery O2 Flow Rate FiO2 11/26/17 06:56 68 11/26/17 06:56 100 Nasal Cannula 11/26/17 06:52 98.3 77 20 162/83 (109) 100 Physical Exam GENERAL: This is a well-nourished, well-developed patient, in no apparent distress. SKIN: No rashes, ecchymoses or lesions. Cool and dry. HEAD: Atraumatic. Normocephalic. No temporal or scalp tenderness. EYES: Pupils equal round and reactive. Extraocular motions intact. No scleral icterus. No injection or drainage. ENT: Nose without bleeding, purulent drainage or septal hematoma. Throat without erythema, tonsillar hypertrophy or exudate. Uvula midline. Airway patent. NECK: Trachea midline. No JVD or lymphadenopathy. Supple, nontender, no meningeal signs. CARDIOVASCULAR: Regular rate and rhythm without murmurs, gallops, or rubs. RESPIRATORY: Clear to auscultation. Breath sounds equal bilaterally. No wheezes , rales, or rhonchi. GASTROINTESTINAL: Abdomen soft, non-tender, nondistended. No hepato-splenomegaly , or palpable masses. No guarding. MUSCULOSKELETAL: Left knee bandage clean dry and intact on CPM NEUROLOGICAL: Awake and alert to person place time and situation. Cranial nerves II through XII intact. Motor and sensory grossly within normal limits. Afocal neurologically intact Normal speech. Assessment and Plan Assessment and Plan 1. Status post left total knee arthroplastycontinue postoperative care, pain control, physical therapy per orthopedic surgery Dr. Wagner 2. Hypertension, chronic essential - resume home lisinopril. Further recommendations based on blood pressure trends. Will provide IV Vasotec for any uncontrolled blood pressures 3. GERD continue PPI 4. DVT prophylaxis -resume Lovenox. Kady Roman MD Nov 26, 2017 12:20
[2017-11-26] MEDS: ACETAMINOPHEN/HYDROcodone 325 MG/7.5 MG TAB PO PRN ×2 (13:37→20:15)
[2017-11-26] MEDS: ceFAZolin 2 GM PREMIX 50 ML IV SCH ×2 (13:38→20:16)
[2017-11-26 16:00] VITALS: BP 165/88; PULSE 88; RESP 18; TEMP 97.2; O2SAT 95
[2017-11-26 20:00] VITALS: BP 198/94; PULSE 89; RESP 17; TEMP 97.3; O2SAT 98
[2017-11-26] MEDS: NORTRIPTYLINE HCL 10 MG CAP PO SCH (20:15)
[2017-11-27 00:01] VITALS: BP 154/78; PULSE 100; RESP 18; TEMP 98.5; O2SAT 96
[2017-11-27] MEDS: ACETAMINOPHEN/HYDROcodone 325 MG/7.5 MG TAB PO PRN ×5 (01:02→21:48)
[2017-11-27] MEDS: ceFAZolin 2 GM PREMIX 50 ML IV SCH (01:03)
[2017-11-27 04:00] VITALS: BP 162/80; PULSE 95; RESP 18; TEMP 98.3; O2SAT 97
[2017-11-27 05:05] LABS: HEMATOCRIT 31.3 % (39.0-51.0); HEMOGLOBIN 10.4 GM/DL (13.0-17.0); MEAN CELL VOLUME 90.4 FL (80.0-100.0); MEAN CORPUSCULAR HEMOGLOBIN 30.1 PG (27.0-34.0); MEAN CORPUSCULAR HGB CONC 33.3 % (32.0-36.0); MEAN PLATELET VOLUME 8.9 FL (7.0-11.0); PLATELET COUNT 262 TH/MM3 (150-450); RED BLOOD COUNT 3.47 MIL/MM3 (4.50-5.90); RED CELL DISTRIBUTION WIDTH 16.8 % (11.6-17.2); WHITE BLOOD COUNT 9.9 TH/MM3 (4.0-11.0)
[2017-11-27 05:17] LABS: BICARBONATE 23.3 MEQ/L (21.0-32.0); CALCIUM 8.3 MG/DL (8.5-10.1); CREATININE 1.29 MG/DL (0.60-1.30)
[2017-11-27 08:00] VITALS: BP 140/79; PULSE 98; RESP 18; TEMP 98.4; O2SAT 95
--- NOTE | 2017-11-27 08:05 | PD.ORT.PN ---
Subjective Post Op Day #: 1 Subjective Remarks pain tolerable Objective Vitals Vital Signs Date Time Temp Pulse Resp B/P (MAP) Pulse Ox O2 Delivery O2 Flow Rate FiO2 11/27/17 04:00 98.3 95 18 162/80 (107) 97 11/27/17 00:01 98.5 100 18 154/78 (103) 96 11/26/17 20:00 97.3 89 17 198/94 (128) 98 11/26/17 16:00 97.2 88 18 165/88 (113) 95 11/26/17 11:50 86 14 155/78 (103) 100 Nasal Cannula 2 11/26/17 11:30 83 14 172/81 (111) 99 Nasal Cannula 2 11/26/17 11:15 85 14 136/77 (96) 98 Nasal Cannula 2 11/26/17 10:58 97.7 83 14 136/77 (96) 95 Nasal Cannula 2 I/O 11/26/17 11/26/17 11/26/17 11/27/17 11/27/17 11/27/17 07:00 15:00 23:00 07:00 15:00 23:00 Intake Total 1500 ml 480 ml 360 ml Output Total 300 ml 250 ml 675 ml Balance 1200 ml 230 ml -315 ml Intake Oral 480 ml 360 ml IV Total 400 ml Other 1100 ml Output Urine Total 200 ml 250 ml 675 ml Estimated Blood Loss 100 ml Result Diagram: 11/27/17 0415 11/27/17 0415 Objective Remarks in bed, nad dressing c/d/i neg homans nvi Assessment & Plan Ortho Post Op Day #: 1 Problem List: Assessment and Plan s/p L TKA wbat ok to maintain dressing unless saturated lovenox, d/c on asa 81 d/c planning home with [facility] and pt - cleared today if does well in PT f/up dr. caruso 2 weeks Pa Owusu Nov 27, 2017 08:05
--- NOTE | 2017-11-27 08:06 | HHI.DCPOC ---
Discharge Care Plan Diagnosis: (1) Primary localized osteoarthrosis, lower leg Your Health Problems Are: Difficulty with ADL Goals to Promote Your Health * To prevent worsening of your condition and complications * To maintain your health at the optimal level Directions to Meet Your Goals Take your medications as prescribed Follow your dietary instruction Follow activity as directed Keep your appointments as scheduled Take your immunizations and boosters as scheduled If your symptoms worsen call your PCP, if no PCP go to Urgent Care Center or Emergency Room Smoking is Dangerous to Your Health. Avoid second hand smoke Call the 24-hour hour crisis hotline for domestic abuse at Pa Owusu Nov 27, 2017 08:06
--- NOTE | 2017-11-27 08:07 | HHI.FF ---
Face to Face Verification Diagnosis: (1) Encounter for medical screening examination Physical Therapy Gait training, Safety evaluation, Transfer training, bed to chair Knee: Total knee, Protocol: Left, Full weight bearing Left LE Weight Bearing: WB as tolerated Nursing RN: 3 days/week x 2 weeks Nursing: Dressing changes I have seen patient Jose Borden Jr Jose Eduardo on 11/27/17. My clinical findings support the need for the requested home health care services because: Limited ability to care for self High risk of falls I certify that my clinical findings support that this patient is homebound because: Post-op weakness Unsteady gait/balance Pa Owusu Nov 27, 2017 08:07
[2017-11-27] MEDS: PANTOPRAZOLE SOD 20 MG DELAYED RELEASE TAB PO SCH (08:27)
[2017-11-27] MEDS: LISINOPRIL 10 MG TAB PO SCH (08:27)
[2017-11-27] MEDS: ENOXAPARIN SODIUM 40 MG/0.4 ML SYRINGE SQ SCH (10:30)
[2017-11-27 12:00] VITALS: BP 197/95; PULSE 98; RESP 18; TEMP 98.2; O2SAT 100
[2017-11-27] MEDS: SODIUM CHLOR 0.9% 1000 ML INJ 1,000 ML IV SCH ×2 (12:38→22:38)
--- NOTE | 2017-11-27 15:14 | HHI.PR ---
Subjective Remarks Follow-up visit status post left knee total replacement, HTN, GERD. Patient seen and examined today. Reports he is doing well. States it is manageable. Reports he is just cold. But denies any fevers, nausea, vomiting, diarrhea. Denies any chest pain, palpitations, headaches, dizziness. Denies dysuria. Objective Vitals Vital Signs Date Time Temp Pulse Resp B/P (MAP) Pulse Ox O2 Delivery O2 Flow Rate FiO2 11/27/17 12:00 98.2 98 18 197/95 (129) 100 11/27/17 08:00 98.4 98 18 140/79 (99) 95 11/27/17 04:00 98.3 95 18 162/80 (107) 97 11/27/17 00:01 98.5 100 18 154/78 (103) 96 11/26/17 20:00 97.3 89 17 198/94 (128) 98 11/26/17 16:00 97.2 88 18 165/88 (113) 95 I/O 11/26/17 11/26/17 11/26/17 11/27/17 11/27/17 11/27/17 07:00 15:00 23:00 07:00 15:00 23:00 Intake Total 1500 ml 480 ml 360 ml 406 ml Output Total 300 ml 250 ml 675 ml Balance 1200 ml 230 ml -315 ml 406 ml Intake Oral 480 ml 360 ml IV Total 400 ml 406 ml Other 1100 ml Output Urine Total 200 ml 250 ml 675 ml Estimated Blood Loss 100 ml Result Diagram: 11/27/17 0415 11/27/17 0415 Imaging Last Impressions Knee X-Ray 11/26/17 0638 Signed Impressions: CONCLUSION: Status post total knee arthroplasty. Louie Pantoja MD FACR Objective Remarks GENERAL: This is a well-nourished, well-developed patient, in no apparent distress. SKIN: Warm and dry HEENT: Normocephalic. Pupils equal round and reactive. Nose without bleeding. Airway patent. NECK: Trachea midline. No JVD. Supple. CARDIOVASCULAR: Regular rate and rhythm without murmurs, gallops, or rubs. RESPIRATORY: Clear to auscultation. Breath sounds equal bilaterally. No wheezes , rales, or rhonchi. GASTROINTESTINAL: Abdomen soft, non-tender, nondistended. Bowel Sounds normoactive x4. MUSCULOSKELETAL: Extremities without clubbing, cyanosis. Left lower extremity trace edema NEUROLOGICAL: Awake and alert. Oriented to time, place, person. No focal neuro deficit. Moves all extremities. Normal speech. Procedures Status post left total knee arthroplasty A/P Assessment and Plan 62-year-old pleasant -[place] male who has had long-term history of left knee pain despite conservative treatment electively underwent a left total knee replacement with Dr. Wagner. Status post left total knee arthroplasty by Dr. Wagner -Orthopedic management -Pain management with bowel regimen -PT eval and treat HTN -Continue home medication lisinopril -IV enalapril as needed GERD -Continue PPI DVT prop Lovenox Discharge Planning Plan to discharge home tomorrow with home health care as per orthopedic surgeon Ton Lewis Nov 27, 2017 15:14
[2017-11-27 16:00] VITALS: BP 185/100; PULSE 115; RESP 18; TEMP 98.1; O2SAT 98
[2017-11-27] MEDS: cloNIDine HCL 0.1 MG TAB PO PRN (16:27)
[2017-11-27] MEDS: amLODIPine BESYLATE 5 MG TAB PO SCH (18:16)
[2017-11-27 20:00] VITALS: BP 174/82; PULSE 113; RESP 19; TEMP 99.7; O2SAT 96
[2017-11-27] MEDS: NORTRIPTYLINE HCL 10 MG CAP PO SCH (21:47)
[2017-11-27] MEDS: MULTIVITAMINS/MINERALS THERAPEUTIC TAB PO SCH (21:47)
[2017-11-27] MEDS: DOCUSATE SODIUM 100 MG CAP PO SCH (21:47)
[2017-11-28 00:01] VITALS: BP 164/80; PULSE 116; RESP 18; TEMP 98.8; O2SAT 95
[2017-11-28 04:00] VITALS: BP 188/91; PULSE 110; RESP 18; TEMP 99.2; O2SAT 99
[2017-11-28] MEDS: cloNIDine HCL 0.1 MG TAB PO PRN (05:02)
[2017-11-28] MEDS: ACETAMINOPHEN/HYDROcodone 325 MG/7.5 MG TAB PO PRN ×3 (05:03→14:49)
[2017-11-28 05:59] LABS: HEMATOCRIT 32.5 % (39.0-51.0); HEMOGLOBIN 10.6 GM/DL (13.0-17.0); MEAN CORPUSCULAR HEMOGLOBIN 29.4 PG (27.0-34.0); MEAN CORPUSCULAR HGB CONC 32.7 % (32.0-36.0); MEAN PLATELET VOLUME 9.4 FL (7.0-11.0); PLATELET COUNT 255 TH/MM3 (150-450); RED BLOOD COUNT 3.61 MIL/MM3 (4.50-5.90); RED CELL DISTRIBUTION WIDTH 16.6 % (11.6-17.2); WHITE BLOOD COUNT 12.1 TH/MM3 (4.0-11.0)
[2017-11-28 06:07] LABS: BICARBONATE 24.9 MEQ/L (21.0-32.0); CALCIUM 8.6 MG/DL (8.5-10.1); CREATININE 1.01 MG/DL (0.60-1.30)
[2017-11-28 06:13] VITALS: BP 154/87; PULSE 112
[2017-11-28 08:00] VITALS: BP 148/74; PULSE 108; RESP 19; TEMP 98.9; O2SAT 95
[2017-11-28] MEDS: DOCUSATE SODIUM 100 MG CAP PO SCH (08:47)
[2017-11-28] MEDS: MULTIVITAMINS/MINERALS THERAPEUTIC TAB PO SCH (08:48)
[2017-11-28] MEDS: PANTOPRAZOLE SOD 20 MG DELAYED RELEASE TAB PO SCH (08:48)
[2017-11-28] MEDS: amLODIPine BESYLATE 5 MG TAB PO SCH (08:48)
[2017-11-28] MEDS: LISINOPRIL 10 MG TAB PO SCH (08:48)
[2017-11-28] MEDS: ENOXAPARIN SODIUM 40 MG/0.4 ML SYRINGE SQ SCH (10:46)
[2017-11-28 12:00] VITALS: BP 163/82; PULSE 105; RESP 18; TEMP 98.7; O2SAT 99
--- NOTE | 2017-11-28 14:29 | PD.ORT.PN ---
Subjective Post Op Day #: 2 Subjective Remarks pain tolerable. doing well. Objective Vitals Vital Signs Date Time Temp Pulse Resp B/P (MAP) Pulse Ox O2 Delivery O2 Flow Rate FiO2 11/28/17 10:24 20 11/28/17 08:00 98.9 108 19 148/74 (98) 95 11/28/17 06:13 112 154/87 (109) 11/28/17 04:00 99.2 110 18 188/91 (123) 99 11/28/17 00:01 98.8 116 18 164/80 (108) 95 11/27/17 20:00 99.7 113 19 174/82 (112) 96 11/27/17 16:00 98.1 115 18 185/100 (128) 98 I/O 11/27/17 11/27/17 11/27/17 11/28/17 11/28/17 11/28/17 07:00 15:00 23:00 07:00 15:00 23:00 Intake Total 360 ml 1006 ml 600 ml Output Total 675 ml 875 ml Balance -315 ml 1006 ml -275 ml Intake Oral 360 ml 600 ml 600 ml IV Total 406 ml Output Urine Total 675 ml 875 ml # Voids 3 Result Diagram: 11/28/17 0421 11/28/17 0421 Objective Remarks in bed, nad dressing c/d/i neg homans nvi Assessment & Plan Ortho Post Op Day #: 2 Problem List: Assessment and Plan s/p L TKA wbat ok to maintain dressing unless saturated lovenox, d/c on asa 81 PT d/c planning home with [facility] and pt - waiting on [facility] for [facility] f/up dr. caruso 2 weeks Pa Owusu Nov 28, 2017 14:29
--- NOTE | 2017-11-28 14:58 | HHI.PR ---
Subjective Remarks Follow-up visit status post left knee total replacement, HTN, GERD. Patient seen and examined today. Reports he is doing well. States he is going home today. He is able to manage himself with his cousin who is going to pick him up. No acute issues overnight. Denies pain and discomfort. Denies SOB/ dyspnea. Denies chest pain, palpitations, headaches, dizziness. Denies fevers, chills, n/v/d. Denies dysuria. Objective Vitals Vital Signs Date Time Temp Pulse Resp B/P (MAP) Pulse Ox O2 Delivery O2 Flow Rate FiO2 11/28/17 12:00 98.7 105 18 163/82 (109) 99 11/28/17 10:24 20 11/28/17 08:00 98.9 108 19 148/74 (98) 95 11/28/17 06:13 112 154/87 (109) 11/28/17 04:00 99.2 110 18 188/91 (123) 99 11/28/17 00:01 98.8 116 18 164/80 (108) 95 11/27/17 20:00 99.7 113 19 174/82 (112) 96 11/27/17 16:00 98.1 115 18 185/100 (128) 98 I/O 11/27/17 11/27/17 11/27/17 11/28/17 11/28/17 11/28/17 06:59 14:59 22:59 06:59 14:59 22:59 Intake Total 360 ml 1006 ml 600 ml Output Total 675 ml 875 ml Balance -315 ml 1006 ml -275 ml Intake Oral 360 ml 600 ml 600 ml IV Total 406 ml Output Urine Total 675 ml 875 ml # Voids 3 Result Diagram: 11/28/17 0421 11/28/17 0421 Imaging Last Impressions Knee X-Ray 11/26/17 0638 Signed Impressions: CONCLUSION: Status post total knee arthroplasty. Louie Pantoja MD FACR Objective Remarks GENERAL: This is a well-nourished, well-developed patient, in no apparent distress. SKIN: Warm and dry HEENT: Normocephalic. Pupils equal round and reactive. Nose without bleeding. Airway patent. NECK: Trachea midline. No JVD. Supple. CARDIOVASCULAR: Regular rate and rhythm without murmurs, gallops, or rubs. RESPIRATORY: Clear to auscultation. Breath sounds equal bilaterally. No wheezes , rales, or rhonchi. GASTROINTESTINAL: Abdomen soft, non-tender, nondistended. Bowel Sounds normoactive x4. MUSCULOSKELETAL: Extremities without clubbing, cyanosis. Left lower extremity trace edema NEUROLOGICAL: Awake and alert. Oriented to time, place, person. No focal neuro deficit. Moves all extremities. Normal speech. Procedures Status post left total knee arthroplasty A/P Assessment and Plan 62-year-old pleasant -[place] male who has had long-term history of left knee pain despite conservative treatment electively underwent a left total knee replacement with Dr. Wagner. Status post left total knee arthroplasty by Dr. Wagner -Orthopedic management -Pain management with bowel regimen -PT eval and treat HTN -Continue home medication lisinopril -IV enalapril as needed GERD -Continue PPI DVT prop Lovenox Discharge Planning Plan to discharge home with home health care as per orthopedic surgeon Ton Lewis Nov 28, 2017 14:58
[2017-11-28 16:00] VITALS: BP 179/77; PULSE 107; RESP 19; TEMP 98.5; O2SAT 99
== END 2017-11-28 18:12 | disposition home health service (06) | DRG 470 ==
LOC: HSDI 05:34 → N06B 11:56
PROVIDERS: ADMIT Orthopaedic Surgery Sports Medicine; ATTEND Orthopaedic Surgery Sports Medicine
PROC: 3E0T3BZ Introduction of Anesthetic Agent into Peripheral Nerves and Plexi, Percutaneous Approach (ICD-10-PCS; 2017-11-26)
PROC: 0SRD0J9 Replacement of Left Knee Joint with Synthetic Substitute, Cemented, Open Approach (ICD-10-PCS; principal; 2017-11-26 08:10)
DX: M17.12 Unilateral primary osteoarthritis, left knee (principal); I10 Essential (primary) hypertension; K21.9 Gastro-esophageal reflux disease without esophagitis; Z87.891 Personal history of nicotine dependence
CPT/HCPCS: 73560; 76937; 80048; 85027; 86850; 86900; 86901; 94150; C1776; J0690; J0735; J1100; J1580; J1650; J1885; J2405; J2710; J2795; J3010; J3370; J7030; J7120

== ENCOUNTER 2018-04-30 22:29 | Inpatient (IN) ==
[2018-04-30] MEDS ORDERED: Acetaminophen 650 MG Supp RECTAL ONE (23:02)
[2018-04-30] MEDS ORDERED: Piperacil/Tazo 3.375 GM Premix 50 ML IV.SIG ONE (23:16)
[2018-04-30] MEDS ORDERED: Sod Chloride 0.9% Inj 1,000 ML IV.SIG ONE (23:16)
[2018-04-30] MEDS ORDERED: Vancomycin Inj 1,000 MG in Sodium Chlor 0.9% Inj 250 ML IV.SIG ONE (23:16)
[2018-04-30 23:25] LABS: Baso # (Auto) 0.1 th/mm3 (0.0-0.2); Baso % (Auto) 0.8 % (0.0-2.0); Eos # (Auto) 0.1 th/mm3 (0.0-0.4); Eos % (Auto) 0.6 % (0.0-4.0); Hematocrit 36.4 % (39.0-51.0); Hemoglobin 11.6 gm/dL (13.0-17.0); Lymph # (Auto) 0.2 th/mm3 (1.0-4.8); Lymph % (Auto) 1.1 % (9.0-44.0); Mean Corpuscular HGB Conc 31.8 % (32.0-36.0); Mean Corpuscular Hemoglobin 28.4 pg (27.0-34.0); Mean Corpuscular Volume 89.3 fL (80.0-100.0); Mean Platelet Volume 9.2 fL (7.0-11.0); Mono # (Auto) 0.8 th/mm3 (0.0-0.9); Mono % (Auto) 4.1 % (0.0-8.0); Neut # (Auto) 18.3 th/mm3 (1.8-7.7); Neut % (Auto) 93.4 % (16.0-70.0); Platelet Count 290 th/mm3 (150-450); Red Blood Count 4.08 mil/mm3 (4.50-5.90); Red Cell Distribution Width 17.7 % (11.6-17.2); White Blood Count 19.5 th/mm3 (4.0-11.0)
--- NOTE | 2018-04-30 23:26 | XR ---
EXAM DATE: 04/30/2018 11:21 PM EST AGE/SEX: 62 years / Male INDICATIONS: Shortness of breath. CLINICAL DATA: This is the patient's initial encounter. Patient reports that signs and symptoms have been present for 1 day and indicates a pain score of 0/10. MEDICAL/SURGICAL HISTORY: Hypertension. None. COMPARISON: None. FINDINGS: A single AP view of the chest demonstrates the lungs to be symmetrically aerated without evidence of mass, infiltrate or effusion. The heart size is at the upper limits of normal with no pulmonary miranda a. Osseous structures are intact. There are overlying electrocardiogram leads. CONCLUSION: No acute cardiopulmonary disease. Electronically signed by: Merrick Hannah MD 04/30/2018 11:25 PM EST
[2018-04-30 23:41] LABS: Activated Partial Thrombo Time 25.7 sec (23.4-31.7); INR 1.1 Ratio; Prothrombin Time 11.2 sec (9.8-11.6)
[2018-04-30 23:47] LABS: Alanine Aminotransferase 13 U/L (12-78)
[2018-04-30 23:51] LABS: Alkaline Phosphatase 86 U/L (45-117); Creatine Kinase 138 U/L (39-308); Total Protein 7.2 g/dL (6.4-8.2); Troponin I 0.17 ng/mL (0.02-0.05)
[2018-04-30 23:53] LABS: Anion Gap 10 meq/L (5-15); Aspartate Aminotransferase 20 U/L (15-37); Blood Urea Nitrogen 21 mg/dL (7-18); Calcium 8.2 mg/dL (8.5-10.1); Carbon Dioxide 21.9 meq/L (21.0-32.0); Chloride 106 meq/L (98-107); Glomerular Filtration Rate 57 mL/min (>89); Glucose,Random 126 mg/dL (74-106); Lipase 54 U/L (73-393); Magnesium 1.6 mg/dL (1.5-2.5); Potassium 3.8 meq/L (3.5-5.1); Sodium 138 meq/L (136-145)
--- NOTE | 2018-04-30 23:59 | US ---
EXAM DATE: 04/30/2018 11:53 PM EST AGE/SEX: 62 years / Male INDICATIONS: Thrombosis. Left leg pain. CLINICAL DATA: This is the patient's initial encounter. Patient reports that signs and symptoms have been present for 7 - 11 months and indicates a pain score of Nonresponsive. MEDICAL/SURGICAL HISTORY: . Chronic pain. GERD. High cholesterol. HTN. . Left knee replacem ent. COMPARISON: POI, US LEG VENOUS DOPPLER, LEFT, 12/11/2017. . TECHNIQUE: Venous ultrasound of both lower extremities was performed from the inguinal ligament to t he proximal calf. Real-time, color Doppler and spectral tracing, compression and augmentation techni ques were used. FINDINGS: Normal compression of the deep venous system from the inguinal region to the proximal calf . No echogenic clot is seen. Normal response of the venous system to augmentation and respiration. CONCLUSION: 1. Negative exam with no evidence of deep venous thrombosis. Electronically signed by: Merrick Hannah MD 04/30/2018 11:58 PM EST
--- NOTE | 2018-05-01 00:05 | ED ---
HPI General Chief complaint: Altered Mental Status Stated complaint: pt confused/evac Time Seen by Provider: 04/30/18 22:39 Source: family and EMS Mode of arrival: EMS Limitations: altered mental status History of Present Illness HPI narrative: The patient is a 62 year old male who presents to the [facility] emergency department with a history of developing altered mentation earlier in the evening tonight. Patient's family reports that the patient has not been well for the last week, intermittently confused, however it became much worse this evening. They report that they had been trying to convince him to come to the emergency department, however he refused. The patient has a history of having a left knee replacement with chronic intermittent swelling and redness associated with that leg. He reports that he has been on antibiotic in the past for this. 3 days ago he developed increased swelling and more redness than ever before earlier today. The patient was experiencing intermittent tremors and rigors throughout the day today. The patient's family reports that approximately a week ago he was seen in the [place] emergency department related to back pain mainly on the right side of his mid back area. According to the record, he did have a urinalysis done that showed no evidence of infection, however the record from that evaluation revealed that the patient was on Bactrim for some reason the patient's family is unclear about. Unfortunately, the patient himself is unable to provide any significant history as he arrives with a fever of 104.1. The patient is tremulous on exam. Review of systems is otherwise limited because of his altered mentation. Related Data Home Medications Medication Instructions Recorded Confirmed hydrocodone-acetaminophen 1 tab PO Q6H PRN 04/25/18 04/30/18 lisinopril 20 mg PO DAILY 04/25/18 04/30/18 nortriptyline 50 mg PO DAILY 04/25/18 04/30/18 omeprazole 20 mg PO DAILY 04/25/18 04/30/18 simvastatin 20 mg PO DAILY 04/25/18 04/30/18 sulfamethoxazole-trimethoprim 1 tab PO BID 04/25/18 04/30/18 [Bactrim DS] tizanidine 4 mg PO HS 04/25/18 04/30/18 Previous Rx's Medication Instructions Recorded diazepam [Valium] 2.5 mg PO TID PRN #8 tab 04/25/18 Allergies Allergy/AdvReac Type Severity Reaction Status Date / Time No Known Allergies Allergy Verified 04/25/18 16:10 Review of Systems ROS Unobtainable ROS Unobtainable: unobtainable due to mental status [facility] Medical History Medical History Chronic pain (Acute) GERD (gastroesophageal reflux disease) (Acute) High cholesterol (Acute) Hypertension (Acute) Surgical History Surgical History History of left knee replacement (Acute) Social History Social History Substance History: Unable to Obtain Smoking Status: Unknown if ever smoked Tobacco Type: Cigarettes How Often Do You Have a Drink Containing Alcohol: Unable to Obtain Recent Travel in [facility] within the Last 8 Weeks: No Recent Out of Country Travel within the Last 8 Weeks: No Immunization History Tetanus Immunization: Unable to Assess Exam Const General: well developed, acute distress (Tremulous, decreased level of consciousness, awakens easily, however he quickly falls back to sleep. The patient is spontaneously moving all of his extremities.) mild and ill appearing Orientation: confused [place] Head: normocephalic and atraumatic Nose: no nasal discharge and no epistaxis Mouth: moist mucous membranes Throat: other (Posterior oropharynx is not able to be visualized as the patient is uncooperative with opening his mouth.) Eyes Sclera: normal sclerae Pupils: PERRL Neck Neck: no meningeal signs, trachea midline and no JVD Resp Effort & Inspection: no use of accessory muscles Auscultation: clear to auscultation bilaterally Cardio Rate: tachycardic (Sinus tachycardia in the 120s, no pulse deficits to the extremities on simultaneous auscultation and palpation of his radial artery) Rhythm: regular rhythm Heart Sounds: no gallops, no murmurs and no rubs GI Inspection: distended Palpation: soft, no hepatosplenomegaly, no guarding, not rigid and tender in the epigastrum and suprapubicly; not in the LLQ, not in the RLQ, not in the LUQ , not in the RUQ, not at McBurney's point, Brantley's sign negative and with no rebound tenderness Auscultation: normal bowel sounds Back/Spine/Pelvis Back: no CVA tenderness Skin General: dry skin (warm) and other (See further information regarding the patient's skin examination as dictated under the extremity exam.) Neuro General: awake, confused and other (The patient is drowsy. The patient does however spontaneously open his eyes occasionally look around the room.) Cranial Nerves: other (The patient is uncooperative with formal neurologic testing, however he is noted to spontaneously open his eyes and look around the room. He is also noted to move all extremities spontaneously. No evidence of facial asymmetry. He has not been verbal since he arrived in the emergency department.) Motor: no movement abnormalities noted Extrem General: no calf tenderness (On the right), calf tenderness on the left, no clubbing, no cyanosis, edema (1+ pitting edema on the right, 2-3+ pitting edema on the left lower extremity.) Laterality: bilaterally and other (2+ pulses in all 4 extremities.) Right upper extremity: normal to inspection and full ROM Left upper extremity: normal to inspection and full ROM Right lower extremity: lower leg (On examination of the right lower extremity the patient less edema with erythema that is noted below the knee.) Left lower extremity: lower leg (The patient has swelling from the thigh down to the foot on the left leg with erythema noted along the medial aspect of the left thigh and diffusely involving the left lower leg below the left knee down to the foot. There is warmth to touch. The compartments continue to be soft. The patient has tenderness to the area on palpation.) Details: erythema and tenderness Course Consultations Consultation #1: The patient's case including history, pertinent physical examination findings, and laboratory studies were discussed with Dr. Saavedra. It was agreed that the patient would be admitted to the loan supervisor's service. Initial Documented Vital Signs Pulse Rate 124 H 04/30/18 22:37 Respiratory Rate 32 H 04/30/18 22:37 Blood Pressure 170/91 H 04/30/18 22:37 Pulse Oximetry 97 04/30/18 22:37 Last Documented Vital Signs Temperature 104.5 F H 05/01/18 03:58 Pulse Rate 120 H 05/01/18 03:58 Respiratory Rate 14 05/01/18 03:58 Blood Pressure 183/91 H 05/01/18 03:58 Pulse Oximetry 100 05/01/18 03:58 Critical Care Time Critical Care Time: Yes Total Critical Care Time: 43 Attestation: Aggregate critical care time was 43 minutes. Time to perform other separately billable procedures was not included in the critical care time. My time did not include minutes spent treating any other patients simultaneously or on activities that did not directly contribute to the patient's treatment. The services I provided to this patient were to treat and/or prevent clinically significant deterioration that could result in: Cardiovascular collapse from sepsis, versus fluid overload with respiratory failure from crystalloid resuscitation, versus aspiration from altered mentation and poor airway control I provided critical care services requiring my management, as noted below: Chart data review, documentation time, medication orders and management, vital sign assessments/reviewing monitor data, ordering and reviewing lab tests, ordering and interpreting/reviewing x-rays and diagnostic studies, care of the patient and discussion of the patient with the admitting physicians. Medical Decision Making MDM Narrative Medical decision making narrative: During the course of the patient's emergency department visit, the patient was placed on a monitoring manager with oximetry and frequent blood pressure monitoring. The patient had IV access obtained and blood work sent for analysis. A diagnostic evaluation was started regarding the patient's fever, altered mentation. The patient was initially provided Tylenol RI, normal saline 1 L IV fluid bolus , Zosyn, vancomycin was started as broad-spectrum antibiotic coverage. The Patient's diagnostic studies are remarkable for a white count of 19.5, hemoglobin 11.6, platelets 290 with 93.4 neutrophils, PT 11.2, PTT 25.7, CMP is remarkable for a BUN of 21, creatinine 1.51, GFR 57, glucose 126, calcium 8.2, CPK within normal limits, troponin I elevated at 0.17 which could be related to the patient's tachycardia and demand related, versus related to the patient's renal insufficiency therefore this will be trended. Lipase 54. Lactic acid is 3.1. Urinalysis shows hazy urine 30 small occult blood 2 urobilinogen moderate leukocyte esterase, RBCs 18, WBCs 81, few mucus. Chest x-ray shows no acute cardiopulmonary disease, ultrasound of the patient's lower extremity shows no evidence of DVT, influenza testing is negative. The patient became increasingly tremulous. The patient became agitated when he would be placed flat and attempts to do CT. Due to the patient's decreased level of consciousness, the patient was prepped for RSI and intubation by me. The patient was intubated with a 8 cuffed endotracheal tube. The patient tolerated this well. Unfortunately, the patient's temperature increased further. The patient was placed on a cooling blanket. The patient was given normal saline 1 L chilled. The patient was placed on propofol for sedation. An OG tube was placed to low intermittent suction. The patient was maxed out on propofol and required additional sedation and was given Versed 2.5 mg IV followed by a Versed drip. The patient was taken to CT and a CT scan showed a CT scan of the brain with moderate size retention cyst in left maxillary sinus. There is mucosal thickening in the ethmoidal air cells. No acute hemorrhage or mass-effect. CT scan of the chest reveals tiny bilateral pleural effusions, NG tube in place with fluid surrounding the tube in the esophagus that is nonspecific, apparent atelectasis in the dependent portions of the lung bases. CT scan of the abdomen and pelvis shows an unremarkable bowel gas pattern with no evidence of obstruction, unremarkable appearing kidneys, OG tube in place with fluid in the distal esophagus. CT scan of the T-spine shows mild chronic appearing wedging of several of the midthoracic vertebral bodies, no destructive change or sclerosis, CT scan of the lumbar spine reveals no underlying bony abnormality, no evidence to suggest osteomyelitis, mild to moderate central canal stenosis at L2-L3 secondary to disc bulge and degenerative change involving the facets, milder disc bulges at L3-L4 L4-L5 with mild flattening of the anterior thecal sac and no focal protrusion. Degenerative changes involving the lower facet joints. After CT scan of the brain showed no evidence of mass effect, Dr. Saavedra arrived at the patient's bedside to do an LP. The patient's results were discussed with the patient, including the plan of care. I explained that further testing and/ or monitoring is indicated based on the patient's history, examination, and/ or laboratory findings. Therefore, I recommended admission for additional evaluation the loan supervisor's service. Medical Screen Exam Complete: Yes Emergency Medical Condition: Yes Differential Diagnosis Differential Diagnosis: Sepsis related encephalopathy, versus meningitis, versus encephalitis, versus cellulitis, versus pyelonephritis Medical Records Medical records reviewed: Yes I reviewed the patient's medical records. Lab Data Lab results reviewed: Yes I reviewed the patient's lab results. Result diagrams: 04/30/18 23:00 04/30/18 23:00 Lab Results 04/30/18 04/30/18 04/30/18 Range/Units 23:00 23:00 23:00 WBC 19.5 H (4.0-11.0) th/mm3 RBC 4.08 L (4.50-5.90) mil/mm3 Hgb 11.6 L (13.0-17.0) gm/dL Hct 36.4 L (39.0-51.0) % MCV 89.3 (80.0-100.0) fL MCH 28.4 (27.0-34.0) pg MCHC 31.8 L (32.0-36.0) % RDW 17.7 H (11.6-17.2) % Plt Count 290 (150-450) th/mm3 MPV 9.2 (7.0-11.0) fL Neut % (Auto) 93.4 H (16.0-70.0) % Lymph % (Auto) 1.1 L (9.0-44.0) % [place] % (Auto) 4.1 (0.0-8.0) % Eos % (Auto) 0.6 (0.0-4.0) % Baso % (Auto) 0.8 (0.0-2.0) % Neut # (Auto) 18.3 H (1.8-7.7) th/mm3 Lymph # (Auto) 0.2 L (1.0-4.8) th/mm3 [place] # (Auto) 0.8 (0.0-0.9) th/mm3 Eos # (Auto) 0.1 (0.0-0.4) th/mm3 Baso # (Auto) 0.1 (0.0-0.2) th/mm3 WBC Differential . Differential Comment Auto diff final PT 11.2 (9.8-11.6) sec INR 1.1 Ratio APTT 25.7 (23.4-31.7) sec Sodium 138 (136-145) meq/L Potassium 3.8 (3.5-5.1) meq/L Chloride 106 (98-107) meq/L Carbon Dioxide 21.9 (21.0-32.0) meq/L Anion Gap 10 (5-15) meq/L BUN 21 H (7-18) mg/dL Creatinine 1.51 H (0.60-1.30) mg/dL Estimated GFR 57 L (>89) mL/min Random Glucose 126 H (74-106) mg/dL Lactic Acid (0.4-2.0) mmol/L Calcium 8.2 L (8.5-10.1) mg/dL Magnesium 1.6 (1.5-2.5) mg/dL Total Bilirubin 0.4 (0.2-1.0) mg/dL AST 20 (15-37) U/L ALT 13 (12-78) U/L Alkaline Phosphatase 86 (45-117) U/L Total Creatine Kinase 138 (39-308) U/L CK-MB (CK-2) Less than 1.0 (0.5-3.6) ng/mL Troponin I 0.17 H (0.02-0.05) ng/mL Total Protein 7.2 (6.4-8.2) g/dL Albumin 3.0 L (3.4-5.0) g/dL Lipase 54 L (73-393) U/L Urine Color (Yellw/Straw) Urine Clarity (Clear) Urine pH (5.0-8.5) Ur Specific [place] (1.002-1.035) Urine Protein (Neg-Trace) mg/dL Urine Glucose (UA) (Negative) mg/dL Urine Ketones (Negative) mg/dL Urine Occult Blood (Negative) Urine Nitrate (Negative) Urine Bilirubin (Negative) Urine Urobilinogen (Less than 2) mg/dL Ur Leukocyte Esterase (Negative) Urine RBC (0-3) /hpf Urine WBC (0-5) /hpf Urine Mucus (Occasional) /lpf Micro UA Comment Ur Microscopic Review Urine Culture Comments 04/30/18 04/30/18 05/01/18 Range/Units 23:09 23:40 01:46 WBC (4.0-11.0) th/mm3 RBC (4.50-5.90) mil/mm3 Hgb (13.0-17.0) gm/dL Hct (39.0-51.0) % MCV (80.0-100.0) fL MCH (27.0-34.0) pg MCHC (32.0-36.0) % RDW (11.6-17.2) % Plt Count (150-450) th/mm3 MPV (7.0-11.0) fL Neut % (Auto) (16.0-70.0) % Lymph % (Auto) (9.0-44.0) % [place] % (Auto) (0.0-8.0) % Eos % (Auto) (0.0-4.0) % Baso % (Auto) (0.0-2.0) % Neut # (Auto) (1.8-7.7) th/mm3 Lymph # (Auto) (1.0-4.8) th/mm3 [place] # (Auto) (0.0-0.9) th/mm3 Eos # (Auto) (0.0-0.4) th/mm3 Baso # (Auto) (0.0-0.2) th/mm3 WBC Differential Differential Comment PT (9.8-11.6) sec INR Ratio APTT (23.4-31.7) sec Sodium (136-145) meq/L Potassium (3.5-5.1) meq/L Chloride (98-107) meq/L Carbon Dioxide (21.0-32.0) meq/L Anion Gap (5-15) meq/L BUN (7-18) mg/dL Creatinine (0.60-1.30) mg/dL Estimated GFR (>89) mL/min Random Glucose (74-106) mg/dL Lactic Acid 3.1 H 2.4 H (0.4-2.0) mmol/L Calcium (8.5-10.1) mg/dL Magnesium (1.5-2.5) mg/dL Total Bilirubin (0.2-1.0) mg/dL AST (15-37) U/L ALT (12-78) U/L Alkaline Phosphatase (45-117) U/L Total Creatine Kinase (39-308) U/L CK-MB (CK-2) (0.5-3.6) ng/mL Troponin I (0.02-0.05) ng/mL Total Protein (6.4-8.2) g/dL Albumin (3.4-5.0) g/dL Lipase (73-393) U/L Urine Color Yellow (Yellw/Straw) Urine Clarity Hazy H (Clear) Urine pH 6.0 (5.0-8.5) Ur Specific [place] 1.024 (1.002-1.035) Urine Protein 30 H (Neg-Trace) mg/dL Urine Glucose (UA) Negative (Negative) mg/dL Urine Ketones Negative (Negative) mg/dL Urine Occult Blood Small H (Negative) Urine Nitrate Negative (Negative) Urine Bilirubin Negative (Negative) Urine Urobilinogen 2.0 H (Less than 2) mg/dL Ur Leukocyte Esterase Moderate H (Negative) Urine RBC 18 H (0-3) /hpf Urine WBC 81 H (0-5) /hpf Urine Mucus Few H (Occasional) /lpf Micro UA Comment Cath-culture ind Ur Microscopic Review Not Reportable Urine Culture Comments Cath-cult indicated Imaging Data Radiologist's impression: Chest X-Ray 04/30/18 22:58 CONCLUSION: No acute cardiopulmonary disease. Venous Doppler Study 04/30/18 22:58 CONCLUSION: 1. Negative exam with no evidence of deep venous thrombosis. Head CT 05/01/18 00:00 CONCLUSION: 1. No acute hemorrhage or mass effect.. 2. Moderate size retention cyst in left maxillary sinus. There is mucosal thickening in the ethmoidal air cells. . Lumbar Spine CT 05/01/18 00:05 CONCLUSION: 1. No underlying bony abnormality. There is no evidence to suggest osteomyelitis. 2. Mild to moderate central canal stenosis at L2-3 secondary to disc bulge and degenerative change involving the facets. 3. Milder disc bulges at the L3-4 and L4-5 levels with mild flattening the anterior thecal sac and no focal protrusion. 4. Degenerative changes involving the lower facet joints. Thoracic Spine CT 05/01/18 00:05 CONCLUSION: 1. Mild chronic appearing wedging of several of the midthoracic vertebral bodies. 2. No destructive change or sclerosis. Abdomen/Pelvis CT 05/01/18 00:12 CONCLUSION: 1. Unremarkable bowel gas pattern with no evidence of obstruction. 2. Unremarkable appearing kidneys. 3. Nasogastric tube in place with fluid in the distal esophagus. Chest CT 05/01/18 00:20 CONCLUSION: 1. Tiny bilateral pleural effusions. 2. Nasogastric tube in place with fluid surrounding the tube in the esophagus. Is nonspecific. 3. Apparent atelectasis in the dependent portions of lung bases. 4. The study is degraded by motion streak artifact. ECG Data Attestation: I personally reviewed and interpreted this ECG as follows: Interpretation: The patient had an EKG done on arrival that shows a sinus tach 3 , QRS duration is 122 ms, QTC 396 ms. Right bundle branch block is noted. A left anterior fascicular block is noted. No acute ST segment elevation is noted. Discharge Plan Discharge Disposition Patient Disposition: 30 Still Patient Discharge Details Diagnosis: Altered mental status, Urinary tract infection, Sepsis, Cellulitis Physicians Team ED Provider: Sofya Almendarez Attending Provider: Kings Saavedra Interventions Interventions: Vital Signs Last Done: 05/01/18 01:54 Status ED Status: Admitted Patient
[2018-05-01 00:07] LABS: Bilirubin,Urine Negative (Negative); Clarity,Urine Hazy (Clear); Color,Urine Yellow (Yellw/Straw); Glucose,Urine (UA) Negative (Negative); Leukocyte Esterase,Urine Moderate (Negative); Mucus,Urine Few /lpf (Occasional); Nitrite,Urine Negative (Negative); Specific Gravity,Urine 1.024 (1.002-1.035)
[2018-05-01] MEDS ORDERED: Sod Chloride 0.9% Inj 1,000 ML IV.SIG ONE ×2 (00:34→02:20)
[2018-05-01] MEDS ORDERED: Etomidate Inj 40 MG/20 ML Vial IV.PUSH ONE (02:20)
[2018-05-01] MEDS ORDERED: Succinylcholine Inj 100 MG/5 ML Syringe IV.PUSH ONE (02:20)
[2018-05-01] MEDS: Propofol 1000 mg/100 ml Inj 1,000 MG/100 ML BOTTLE IV.CONT PRN ×7 (02:40→21:03)
[2018-05-01] MEDS ORDERED: diazePAM 5 MG Tablet PO PRN (02:48)
[2018-05-01] MEDS ORDERED: Bisacodyl 10 MG Supp RECTAL PRN (02:50)
[2018-05-01] MEDS ORDERED: Midazolam 50 MG/50 ML Inj 50 MG/50 ML BAG IV.CONT ONE (02:56)
[2018-05-01] MEDS ORDERED: Midazolam Inj 5 MG/ML 1 ML Vial ONE (02:56)
[2018-05-01] MEDS: Midazolam 50 MG/50 ML Inj 50 MG/50 ML BAG IV.CONT PRN ×4 (03:16→19:53)
[2018-05-01] MEDS ORDERED: Vancomycin Consult Pharmacy OTHER PRN (03:45)
--- NOTE | 2018-05-01 03:48 | P.HPCC ---
History of Present Illness Primary Care Physician: JOSE CARLOS BEAR History of Present Illness: 62 year old male presents with a history of developing altered mentation earlier in the evening tonight. Patient's family reports that the patient has not been well for the last week, intermittently confused, however it became much worse this evening. They report that they had been trying to convince him to come to the emergency department, however he refused. The patient has a history of having a left knee replacement with chronic intermittent swelling and redness associated with that leg. He has been on antibiotic in the past for this. 3 days ago he developed increased swelling and more redness than ever before earlier today. The patient was experiencing intermittent tremors and rigors throughout the day today. The patient's family reports that approximately a week ago he was seen in the [place] emergency department related to back pain mainly on the right side of his mid back area. According to the record, he did have a urinalysis done that showed no evidence of infection, however the record from that evaluation revealed that the patient was on Bactrim for some reason the patient's family is unclear about. Unfortunately, the patient himself is unable to provide any significant history as he arrives with a fever of 104.1. In the emergency department he remained tremulous and extremely confused and was intubated by an ED attending for an airway protection. Inpatient Certification: I certify that the inpatient services were ordered in accordance with Medicare regulations governing the order. This includes certification that hospital inpatient services are reasonable and necessary and in the case of services not specified as inpatient-only under 42 CFR 419.22(n), that they are appropriately provided as inpatient services in accordance to with the 2-midnight benchmark under 43 CFR 412.3(e) Estimated Total Length of Stay (Days): 5 Plans for Post Hospital Care: Not yet determined Review of Systems unobtainable due to endotracheal tube PMFSH - History History Provided By: Baseball Inspector And Repairer / EMT - Medical History Medical History: Medical History (Last Reviewed 05/01/18 @ 12:26 by Merlyn Ashley MD) Chronic pain GERD (gastroesophageal reflux disease) High cholesterol Hypertension - Surgical History Surgical History: Surgical History (Last Reviewed 05/01/18 @ 12:26 by Merlyn Ashley MD) History of left knee replacement - Family History Family History: Family History (Last Updated 11/14/18 @ 12:27 by Merlyn Ashley MD) Other No pertinent family history - Tobacco History Smoking Status: Unknown if ever smoked Tobacco Type: Cigarettes - Alcohol History How Often Do You Have a Drink Containing Alcohol: Unable to Obtain - Substance Use History Substance History: Unable to Obtain - Travel History Recent Travel in the [place] Within the Last 8 Weeks: No Recent Travel Out of the Country Within the Last 8 Weeks: No - Immunization History Tetanus Immunization: Unable to Assess Medications and Allergies Active Medications: Active Medications Acetaminophen (Tylenol) 650 mg PO Q6H PRN PRN Reason: PAIN 1-10 AND/OR FEVER >101F Hydrocodone Bitart/Acetaminophen ([place] 10/325) 1 tab PO Q6H PRN PRN Reason: Acute Pain Al Hydroxide/Mg Hydroxide (Milk Of Carrol Liq) 30 ml PO Q12H PRN PRN Reason: Mild Constipation Albuterol (Duoneb Neb (Prn)) 1 ampul NEB Q2HR NEB PRN PRN Reason: WHEEZING Bisacodyl (Dulcolax Supp) 10 mg RECTAL DAILY PRN PRN Reason: SEVERE CONSITIPATION Chlorhexidine Gluconate (Peridex 0.12% Oral Kit) 15 ml OROPHARYNG BID@0800, 2000 [facility] Chlorhexidine Gluconate (Chlorhexidine 2% Cloth) 3 pack TOPICAL DAILY@0400 VERNON Stop: 05/06/18 03:59 Chlorhexidine Gluconate (Chlorhexidine 2% Cloth) 3 pack TOPICAL DAILY@0400 PRN PRN Reason: Extra cloth needed Stop: 05/06/18 03:59 Diazepam (Valium) 2.5 mg PO TID PRN PRN Reason: muscle spasm Famotidine (Pepcid) 20 mg PO BID VERNON Famotidine (Pepcid Pf Inj) 20 mg IV.PUSH Q12HR [facility] Heparin Sodium (Porcine) (Heparin Inj) 5,000 units SQ Q8H [facility] Propofol (Diprivan 1000 Mg/100 Ml Inj) 1,000 mg in 100 mls @ 3.538 mls/hr IV.CONT TITRATE PRN; Protocol PRN Reason: Per Protocol Sodium Chloride (Ns Inj) 1,000 mls @ 184 mls/hr IV.CONT .Q5H27M [facility] Midazolam HCl (Versed Inj) 50 mg in 50 mls @ 2 mls/hr IV.CONT TITRATE PRN; Protocol PRN Reason: Per Protocol Last Admin: 05/01/18 03:16 Dose: 2 mg/hr, 2 mls/hr Cefepime HCl 2,000 mg/ Sodium (Chloride) 100 mls @ 200 mls/hr IV.SIG Q12H [facility] Lactulose (Lactulose Liq) 30 ml PO DAILY PRN PRN Reason: SEVERE CONSITIPATION Midazolam HCl (Versed Inj) 2 mg IV.PUSH Q1H PRN PRN Reason: SEDATION Miscellaneous Medication () 1 each OROPHARYNG 0000,0400,1200,1600 [facility] Nortriptyline HCl (Pamelor) 50 mg PO DAILY [facility] Ondansetron HCl (Zofran Inj) 4 mg IV.PUSH Q6H PRN PRN Reason: NAUSEA OR VOMITING Pantoprazole Sodium (Protonix) 20 mg PO DAILY [facility] Pharmacy Profile Note (Vancomycin Consult Pharmacy) 1 each OTHER UNSCH PRN PRN Reason: Pharmacy to dose Pravastatin Sodium (Pravachol) 40 mg PO DAILY [facility] Senna/Docusate Sodium (Maria Esther-Colace) 1 tab PO BID [facility] Sennosides (Senokot) 17.2 mg PO Q12H PRN PRN Reason: Moderate Constipation Sodium Chloride (Ns Flush) 2 ml IV.FLUSH BID [facility] Sodium Chloride (Ns Flush) 2 ml IV.FLUSH PRN PRN PRN Reason: FLUSH AFTER USING IV ACCESS Tizanidine HCl (Zanaflex) 4 mg PO HS [facility] Trimethoprim/Sulfamethoxazole (Bactrim Ds) 1 tab PO BID [facility] Allergies Allergy/AdvReac Type Severity Reaction Status Date / Time No Known Allergies Allergy Verified 04/25/18 16:10 Home Medications Medication Instructions Recorded Confirmed Type hydrocodone-acetaminophen 1 tab PO Q6H PRN 04/25/18 04/30/18 History lisinopril 20 mg PO DAILY 04/25/18 04/30/18 History nortriptyline 50 mg PO DAILY 04/25/18 04/30/18 History omeprazole 20 mg PO DAILY 04/25/18 04/30/18 History simvastatin 20 mg PO DAILY 04/25/18 04/30/18 History sulfamethoxazole-trimethoprim 1 tab PO BID 04/25/18 04/30/18 History [Bactrim DS] tizanidine 4 mg PO HS 04/25/18 04/30/18 History Results - Labs CBC & Chem 7: 05/02/18 03:53 05/02/18 03:53 Labs: Short CBC 04/30/18 Range/Units 23:00 WBC 19.5 H (4.0-11.0) th/mm3 Hgb 11.6 L (13.0-17.0) gm/dL Hct 36.4 L (39.0-51.0) % Plt Count 290 (150-450) th/mm3 BMP 04/30/18 23:00 Sodium 138 Potassium 3.8 Chloride 106 Carbon Dioxide 21.9 BUN 21 H Creatinine 1.51 H Calcium 8.2 L Cardiac Enzymes 04/30/18 Range/Units 23:00 Total Creatine Kinase 138 (39-308) U/L CK-MB (CK-2) Less than 1.0 (0.5-3.6) ng/mL Troponin I 0.17 H (0.02-0.05) ng/mL Liver Function 04/30/18 Range/Units 23:00 Total Bilirubin 0.4 (0.2-1.0) mg/dL AST 20 (15-37) U/L ALT 13 (12-78) U/L Alkaline Phosphatase 86 (45-117) U/L Albumin 3.0 L (3.4-5.0) g/dL Urine 04/30/18 Range/Units 23:40 Urine Color Yellow (Yellw/Straw) Urine Clarity Hazy H (Clear) Urine pH 6.0 (5.0-8.5) Ur Specific [place] 1.024 (1.002-1.035) Urine Protein 30 H (Neg-Trace) mg/dL Urine Glucose (UA) Negative (Negative) mg/dL - Imaging Impressions Chest X-Ray 04/30/18 22:58 CONCLUSION: No acute cardiopulmonary disease. Venous Doppler Study 04/30/18 22:58 CONCLUSION: 1. Negative exam with no evidence of deep venous thrombosis. Exam Vital signs: Vital Signs 04/30/18 22:37 04/30/18 22:47 04/30/18 23:42 Temperature 104.1 F H Pulse Rate 124 H 124 H Respiratory Rate 32 H Blood Pressure 170/91 H Pulse Oximetry 97 100 05/01/18 00:15 05/01/18 00:48 05/01/18 01:54 Temperature 103.8 F H 103.8 F H 104.4 F H Pulse Rate 119 H 102 H 133 H Respiratory Rate 18 22 24 Blood Pressure 192/96 H 215/102 H 138/91 H Pulse Oximetry 97 98 97 05/01/18 03:00 05/01/18 03:21 Temperature 105.4 F H 105.4 F H Pulse Rate 152 H 144 H Respiratory Rate 14 14 Blood Pressure 134/89 212/101 H Pulse Oximetry 97 98 Intake & Output 04/30/18 04/30/18 05/01/18 06:59 18:59 06:59 Intake Total 3300 / 3300 Balance 3300 / 3300 Weight 117.934 kg Intake: IV 3300 / 3300 Zosyn 3.375 GM Premix 50 ML @ 50 / 50 100 mls/hr IV.SIG ONCE ONE Rx#: [id number] NS Inj 1,000 ML @ 1000 mls/hr 3000 / 3000 IV.SIG ONCE ONE Rx#:[id number] Vancomycin Inj 1,000 MG In NS 250 / 250 Inj 250 ML @ 250 mls/hr IV.SIG ONCE ONE Rx#:[id number] - Constitutional moderate distress - Routine HEENT Exam Head: Present: normocephalic, atraumatic Eye: Present: PERRL, normal accommodation ENT: Present: mucous membranes moist - Routine Neck Exam Present: supple. Absent: JVD, carotid bruit - Routine Chest/Breast/Axilla Exam Chest wall: Absent: mass - Routine Respiratory Exam Present: patient mechanically ventilated. Absent: rhonchi, stridor, wheezes, crackles - Routine Cardiovascular Exam Present: RRR, S1, S2 - Routine Abdominal Exam Present: soft, normoactive bowel sounds - Routine Extremities Exam Present: edema. Absent: cyanosis, clubbing Comments: Edema and redness of the left knee standing to the half of the calf - Routine Skin Exam Present: erythema. Absent: cyanosis - Routine Neurological Exam Present: altered mental status, moving all extremities Septic Shock Reassessment Septic shock perfusion: reassessment completed Caprini VTE Risk Assessment Caprini VTE Risk Assessment: Moderate/High Risk (score >= 2) Caprini Risk Assessment Model: Point Value = 1 Point Value = 2 Point Value = 3 Point Value = 5 Age 41-60 Minor surgery BMI > 25 kg/m2 Swollen legs Varicose veins or History of unexplained or recurrent spontaneous Oral contraceptives or hormone replacement Sepsis (< 1 month) Serious lung disease, including pneumonia (< 1 month) Abnormal pulmonary function Acute myocardial infarction Congestive heart failure (< 1 month) History of inflammatory bowel disease Medical patient at bed rest Age 61-74 Arthroscopic surgery Major open surgery (> 45 min) Laparoscopic surgery (> 45 min) Malignancy Confined to bed (> 72 hours) Immobilizing plaster cast Central venous access Age >= 75 History of VTE Family history of VTE Factor V Leiden Prothrombin 80682M Lupus anticoagulant Anticardiolipin antibodies Elevated serum homocysteine Heparin-induced thrombocytopenia Other congenital or acquired thrombophilia Stroke (< 1 month) Elective arthroplasty Hip, pelvis, or leg fracture Acute spinal cord injury (< 1 month) Prophylaxis Regimen: Total Risk Factor Score Risk Level Prophylaxis Regimen 0-1 Low Early ambulation 2 Moderate Order ONE of the following: *Sequential Compression Device (SCD) *Heparin 5000 units SQ BID 3-4 Higher Order ONE of the following medications: *Heparin 5000 units SQ TID *Enoxaparin/Lovenox 40 mg SQ daily (WT < 150 kg, CrCl > 30 mL/min) *Enoxaparin/Lovenox 30 mg SQ daily (WT < 150 kg, CrCl > 10-29 mL/min) *Enoxaparin/Lovenox 30 mg SQ BID (WT < 150 kg, CrCl > 30 mL/min) AND/OR *Sequential Compression Device (SCD) 5 or more Highest Order ONE of the following medications: *Heparin 5000 units SQ TID (Preferred with Epidurals) *Enoxaparin/Lovenox 40 mg SQ daily (WT < 150 kg, CrCl > 30 mL/min) *Enoxaparin/Lovenox 30 mg SQ daily (WT < 150 kg, CrCl > 10-29 mL/min) *Enoxaparin/Lovenox 30 mg SQ BID (WT < 150 kg, CrCl > 30 mL/min) AND *Sequential Compression Device (SCD) Assessment and Plan - Assessment and Plan Plan: Respiratory failure -Intubated for an airway protection -Weaning when neurologically improved -Vent bundle -DuoNeb scheduled and as needed -Oxygen to keep sat above 92 Altered mental status -Febrile -CT head negative -LP results pending -Opening pressure 25 closing pressure 19 -Vancomycin cefepime and acyclovir empirically Sepsis/SIRS -Unclear source -Septic knee, possible meningitis -Blood cultures to follow -Empiric antibiotic -Infectious disease consultation Hypertension -Labetalol PRN to keep his BP less than 160 Dyslipidemia -Pravastatin DVT GI prophylaxis -Teds SCDs -Subcu heparin -Pantoprazole 35 minutes of critical care
[2018-05-01] MEDS ORDERED: Chlorhexidine Gluconate 2% 1 Pack (2 Cloths) TOPICAL PRN (04:00)
[2018-05-01] MEDS ORDERED: Vancomycin Inj 1,000 MG in Sodium Chlor 0.9% Inj 250 ML IV.SIG ONE (04:00)
--- NOTE | 2018-05-01 04:06 | CT ---
EXAM DATE: 05/01/2018 3:51 AM EST AGE/SEX: 62 years / Male INDICATIONS: Fever, abdomen pain. CLINICAL DATA: This is the patient's initial encounter. Patient reports that signs and symptoms have been present for 1 day and indicates a pain score of Nonresponsive. MEDICAL/SURGICAL HISTORY: Non-responsive. Non-responsive. ORAL CONTRAST: No oral contrast ingested. RADIATION DOSE: 32.81 CTDI (mGy) ; Combined studies COMPARISON: No prior exams available for comparison. TECHNIQUE: Multiple contiguous axial images were obtained through the abdomen and pelvis following b olus infusion of 100 ml Omnipaque 350 (iohexol) nonionic water-soluble contrast as a cumulative dos e for multiple exams. No oral contrast ingested. Using automated exposure control and adjustment of the mA and/or kV according to patient size, radiation dose was kept as low as reasonably achievable t o obtain optimal diagnostic quality images. DICOM format image data is available electronically for review and comparison. FINDINGS: The study is degraded by mild motion streak artifact. Lower Lungs: There are minimal pleural effusions. Nasogastric tube is seen coursing through the dista l esophagus into the stomach. There is fluid in the distal esophagus. Liver: The liver has a homogeneous density without space-occupying lesion. There is no dilation of th e biliary tree. Spleen: Homogeneous density without enlargement. Pancreas: Unremarkable without mass or calcification. Kidneys: Normal in size and shape. No evidence of mass or hydronephrosis. Adrenal Glands: Unremarkable. Aorta: The aorta and proximal iliac vessels are grossly unremarkable without aneurysmal dilation. Bowel/Mesentery: No oral contrast was given limiting the sensitivity for the detection of bowel patho logy. The bowel loops are grossly unremarkable. The cecum and sigmoid colon have a normal configurati on. Abdominal Wall: Intact. Retroperitoneum: No evidence of adenopathy in the retrocrural, para-aortic, or deep pelvic regions. Bladder: A Trevizo catheter is present in the bladder. Reproductive Organs: No abnormal masses or calcifications seen. Inguinal: The inguinal region is unremarkable without evidence of adenopathy. Bony Structures: Unremarkable. CONCLUSION: 1. Unremarkable bowel gas pattern with no evidence of obstruction. 2. Unremarkable appearing kidneys. 3. Nasogastric tube in place with fluid in the distal esophagus. Electronically signed by: Merrick Hannah MD 05/01/2018 4:05 AM EST
--- NOTE | 2018-05-01 04:08 | CT ---
EXAM DATE: 05/01/2018 3:53 AM EST AGE/SEX: 62 years / Male INDICATIONS: Fever, shortness of breath. CLINICAL DATA: This is the patient's initial encounter. Patient reports that signs and symptoms have been present for 1 day and indicates a pain score of Nonresponsive. MEDICAL/SURGICAL HISTORY: Non-responsive. Non-responsive. RADIATION DOSE: 32.81 CTDI (mGy) ; Combined studies COMPARISON: No prior exams available for comparison. TECHNIQUE: Multiple contiguous axial images were obtained through the chest during bolus infusion of 100 ml Omnipaque 350 (iohexol) nonionic water-soluble contrast as a cumulative dose for multiple ex ams. Images were obtained in suspended respiration using multiple row detector helical technique. Using automated exposure control and adjustment of the mA and/or kV according to patient size, radiat ion dose was kept as low as reasonably achievable to obtain optimal diagnostic quality images. DICOM format image data is available electronically for review and comparison. FINDINGS: This study is degraded by streak and mild motion artifact. Lungs: The lungs are symmetrically aerated. There is mild streaky opacity in the dependent portions of lung bases most characteristic of atelectasis. Mediastinum: There is good visualization of the great vessels of the middle mediastinum. No evidenc e of mediastinal or hilar adenopathy/mass. Nasogastric tube is seen coursing through the esophagus wi th fluid surrounding the tube. The endotracheal tube is present as well. Pleurae: There are small bilateral pleural effusions. Axillae: Unremarkable. Bony Structures: Unremarkable. Miscellaneous: The examination was extended to include the upper abdomen, and both adrenal glands ar e normal in size and configuration. CONCLUSION: 1. Tiny bilateral pleural effusions. 2. Nasogastric tube in place with fluid surrounding the tube in the esophagus. Is nonspecific. 3. Apparent atelectasis in the dependent portions of lung bases. 4. The study is degraded by motion streak artifact. Electronically signed by: Merrick Hannah MD 05/01/2018 4:07 AM EST
--- NOTE | 2018-05-01 04:09 | CT ---
EXAM DATE: 05/01/2018 3:49 AM EST AGE/SEX: 62 years / Male INDICATIONS: Altered mental status, fever. CLINICAL DATA: This is the patient's initial encounter. Patient reports that signs and symptoms have been present for 1 day and indicates a pain score of Nonresponsive. MEDICAL/SURGICAL HISTORY: Non-responsive. Non-responsive. RADIATION DOSE: 34.36 CTDI (mGy) COMPARISON: No prior exams available for comparison. TECHNIQUE: CT of the head without contrast. Using automated exposure control and adjustment of the mA and/or kV according to patient size, radiation dose was kept as low as reasonably achievable to ob tain optimal diagnostic quality images. DICOM format image data is available electronically for revi ew and comparison. FINDINGS: Cerebrum: The ventricles are normal for age. No evidence of midline shift, mass lesion, hemorrhage or acute infarction. No extraaxial fluid collections are seen. Posterior Fossa: The cerebellum and brainstem are intact. The 4th ventricle is midline. The cerebe llopontine angle is unremarkable. Extracranial: The visualized portion of the orbits is intact. There is a moderate size retention cys t in the left maxillary sinus. There is mucosal thickening in the ethmoidal air cells. Skull: The calvaria is intact. No evidence of skull fracture. CONCLUSION: 1. No acute hemorrhage or mass effect.. 2. Moderate size retention cyst in left maxillary sinus. There is mucosal thickening in the ethmoida l air cells. . Electronically signed by: Merrick Hannah MD 05/01/2018 4:08 AM EST
--- NOTE | 2018-05-01 04:14 | CT ---
EXAM DATE: 05/01/2018 3:57 AM EST AGE/SEX: 62 years / Male INDICATIONS: Fever, evaluate for possible osteomyelitis. CLINICAL DATA: This is the patient's initial encounter. Patient reports that signs and symptoms have been present for 1 day and indicates a pain score of Nonresponsive. MEDICAL/SURGICAL HISTORY: Non-responsive. Non-responsive. RADIATION DOSE: . CTDI (mGy) ; Reconstructed from previous dataset, no dose COMPARISON: . TECHNIQUE: Contiguous axial images were acquired with a multirow detector CT scanner after intraveno us administration of 100 ml Omnipaque 350 (iohexol) nonionic water-soluble contrast as a cumulative dose for multiple exams. Multiplanar reconstructions in the sagittal and coronal plane were also per formed. Using automated exposure control and adjustment of the mA and/or kV according to patient size , radiation dose was kept as low as reasonably achievable to obtain optimal diagnostic quality images . DICOM format image data is available electronically for review and comparison. FINDINGS: Vertebrae: Normal vertebral body height. Discs: The disc space heights are fairly well-preserved. Alignment: Normal. No subluxation. Post Contrast: No abnormal areas of enhancement are seen in the cord, dural or paraspinal regions. T12-L1: The thecal sac has a normal diameter. No evidence of disc bulge or protrusion. The neural foramina are patent bilaterally. L1-L2: The thecal sac has a normal diameter. No evidence of disc bulge or protrusion. The neural f oramina are patent bilaterally. L2-L3: There is a moderate-sized disc bulge flattening of the anterior thecal sac and narrowing of t he neural foramina bilaterally. There are mild degenerative change involving the facet joints. There is mild to moderate central canal stenosis. L3-L4: There is a mild to moderate annular disc bulge with mild flattening of the anterior thecal sa c and narrowing of the neural foramina. There is no definite central canal stenosis. There are degene rative change involving the facet joints. L4-L5: There is a mild to moderate disc bulge with flattening of the anterior thecal sac and narrowi ng of the neural foramina. There are degenerative changes involving the facet joints. L5-S1: The thecal sac has a normal diameter. No evidence of disc bulge or protrusion. The neural f oramina are patent bilaterally. There are degenerative changes involving facet joints. CONCLUSION: 1. No underlying bony abnormality. There is no evidence to suggest osteomyelitis. 2. Mild to moderate central canal stenosis at L2-3 secondary to disc bulge and degenerative change i nvolving the facets. 3. Milder disc bulges at the L3-4 and L4-5 levels with mild flattening the anterior thecal sac and n o focal protrusion. 4. Degenerative changes involving the lower facet joints. Electronically signed by: Merrick Hannah MD 05/01/2018 4:12 AM EST
--- NOTE | 2018-05-01 04:17 | CT ---
EXAM DATE: 05/01/2018 4:00 AM EST AGE/SEX: 62 years / Male INDICATIONS: Fever, osteomyelitis. CLINICAL DATA: This is the patient's initial encounter. Patient reports that signs and symptoms have been present for 1 day and indicates a pain score of Nonresponsive. MEDICAL/SURGICAL HISTORY: Non-responsive. Non-responsive. RADIATION DOSE: . CTDI (mGy) ; Reconstructed from previous dataset, no dose COMPARISON: No prior exams available for comparison. TECHNIQUE: Contiguous axial images were acquired using a multirow detector CT scanner after intraven ous administration of 100 ml Omnipaque 350 (iohexol) nonionic water-soluble contrast as a cumulative dose for multiple exams. Multiplanar reconstruction in the sagittal and coronal planes was perform ed. Using automated exposure control and adjustment of the mA and/or kV according to patient size, r adiation dose was kept as low as reasonably achievable to obtain optimal diagnostic quality images. DICOM format image data is available electronically for review and comparison. FINDINGS: Vertebrae: There is mild wedging of the T5 vertebral body with mild invagination superior endplate. There is mild invagination of the superior endplate of T4 as well. These appear chronic. There is no destructive change or sclerosis. There is minimal degenerative change. Alignment: Normal. No subluxation. Post Contrast: No abnormal areas of enhancement are seen in the cord, dural or paraspinal regions. The axial images demonstrate that the vertebral bodies and posterior elements are intact with no dest ructive change. There are mild degenerative changes. There is no evidence of disc protrusion or spina l stenosis. An endotracheal tube and nasogastric tube are noted. There are minimal pleural effusions. CONCLUSION: 1. Mild chronic appearing wedging of several of the midthoracic vertebral bodies. 2. No destructive change or sclerosis. Electronically signed by: Merrick Hannah MD 05/01/2018 4:16 AM EST
[2018-05-01] MEDS ORDERED: Acyclovir Inj 1,050 MG in Sodium Chlor 0.9% Inj 150 ML IV.SIG ONE (04:23)
[2018-05-01] MEDS: Acetaminophen 325 MG Tablet PO PRN (04:45)
[2018-05-01] MEDS: Sod Chloride 0.9% Inj 1,000 ML IV.CONT SCH ×5 (04:57→23:36)
[2018-05-01] MEDS: Heparin - SQ 10,000 UNITS/ML Vial SQ SCH ×3 (04:57→18:47)
[2018-05-01 05:29] LABS: Total Protein,CSF 158.3 mg/dL (15.0-45.0)
[2018-05-01 05:59] LABS: Lymphocytes, CSF 1 %; Monocytes,CSF 2 %; Neutrophils,CSF 97 %; RBC on Tube 4 2089 /mm3
--- NOTE | 2018-05-01 06:09 | P.PCN ---
Date of procedure: 05/01/18 Pre-op diagnosis: Altered mental status Post-op diagnosis: same Procedure: Lumbar puncture A time-out was completed verifying correct patient, procedure, site, positioning , and special equipment if applicable. The patient was placed in the left lateral decubitus position in a semi- position with help from the nursing staff. The area was cleansed and draped in usual sterile fashion. 1% lidocaine was used anesthetize the surrounding skin area. A 20-gauge 3.5-inch spinal needle was placed in the L3-L4 interspace. Partially cloudy cerebral spinal fluid was obtained and the opening pressure was noted to be 25. Four tubes were filled with 4 mL of CSF. These were sent for the usual tests, including 1 tube to be held for further analysis if needed. The closing pressure was noted to be 19. Estimated Blood Loss: 1 mL The patient tolerated the procedure well and there were no complications.
--- NOTE | 2018-05-01 08:27 | ECG ---
Date Performed: 05/01/2018 Time Performed: 05:27:37 PTAGE: 62 years EKG: SINUS TACHYCARDIA RIGHT BUNDLE BRANCH BLOCK LEFT ANTERIOR FASCICULAR BLOCK ABNORMAL ECG PREVIOUS TRACING : 04/30/2018 22.43 DOCTOR: Luc Armenta Interpretating Date/Time 05/01/2018 08:26:45
[2018-05-01] MEDS ORDERED: fentaNYL Citrate Inj 100 MCG/2 ML Ampul IV.PUSH ONE (08:35)
[2018-05-01] MEDS ORDERED: Pantoprazole Sodium 20 MG DR Tablet PO SCH (09:00)
[2018-05-01] MEDS ORDERED: Famotidine PF Inj 20 MG/2 ML Vial IV.PUSH SCH (09:00)
[2018-05-01] MEDS: Chlorhexidine 0.12% Oral Kit 15 ML UDC OROPHARYNG SCH ×2 (10:27→19:50)
[2018-05-01] MEDS: Oral Hygiene Kit OROPHARYNG SCH ×3 (10:27→17:01)
[2018-05-01] MEDS: Chlorhexidine Gluconate 2% 1 Pack (2 Cloths) TOPICAL SCH (10:27)
[2018-05-01] MEDS: Famotidine 20 MG Tablet PO SCH ×2 (10:28→20:51)
[2018-05-01] MEDS: Famotidine PF Inj 20 MG/2 ML Vial IV.PUSH SCH ×2 (11:09→20:51)
[2018-05-01] MEDS: fentaNYL 10 mcg/mL Premix Drip 2,500 MCG/250 ML BAG IV.SIG PRN ×2 (11:15→20:12)
--- NOTE | 2018-05-01 11:30 | ECG ---
Date Performed: 05/01/2018 Time Performed: 10:56:24 PTAGE: 62 years EKG: SINUS TACHYCARDIA POSSIBLE LEFT ATRIAL ENLARGEMENT S1-S2-S3 PATTERN, CONSISTENT WITH PULMON IJEOMA DISEASE, RVH, OR NORMAL VARIANT INCOMPLETE RIGHT BUNDLE BRANCH BLOCK LEFT ANTERIOR FASCICULAR BLO CK ABNORMAL ECG PREVIOUS TRACING : 05/01/2018 05.27 DOCTOR: Luc Armenta Interpretating Date/Time 05/01/2018 11:29:19
--- NOTE | 2018-05-01 11:37 | ECG ---
Date Performed: 04/30/2018 Time Performed: 22:43:16 PTAGE: 62 years EKG: SINUS TACHYCARDIA RIGHT BUNDLE BRANCH BLOCK LEFT ANTERIOR FASCICULAR BLOCK ABNORMAL ECG PREVIOUS TRACING : 11/06/2017 14.45 DOCTOR: Luc Armenta Interpretating Date/Time 05/01/2018 11:35:17
--- NOTE | 2018-05-01 12:25 | P.DIET ---
Nutritional Evaluation Type of nutrition evaluation: initial Nutrition consult regarding: Tube Feeding Screening comments: TF review Objective - Diagnosis AMS, frebile illness, UTI, cellulitis - Objective Body Mass Index: 33.4 % IBW: 137 (IBW = 190lb) Body Weight Used for Calculations: IBW Energy Needs - Lower Range (kCal/kg): 22 Energy Needs - Upper Range (kCal/kg): 25 Lower Limit kCal/kg (kCals): 1,900 Upper Limit kCal/kg (kCals): 2,159 Lower Limit Protein Factor (Grams per Kg): 1.2 Upper Limit Protein Factor (Grams per Kg): 1.5 Lower Protein Needs (Protein): 103 Upper Protein Needs (Protein): 130 Dietitian Reviewed in Medical Record: Current diet, Curent medications, Intake & Output, Labs, Medical history, Tube feeding Diet Order: NPO, TF Objective Comments: PMH: GERD, high cholesterol, HTN Labs: BUN 21, Cr 1.51, GFR 57, POC glucose 111 Assessment Assessment: Pt currently intubated and sedated w/ fentanyl, versed, and propofol. Pts TFing is on hold, per MD, pt is receiving TwoCal HN @ 65mL/hr. RD to recommend TFing w / Jevity 1.5 @ 55mL/hr w/ beneprotein 1pkt TID to provide 1980 kcal, 102g of protein, and 1003mL of free water to best meet pts nutritional needs. Additional kcal (1.1 kcal/mL) will be provided by propofol when running. Continue to monitor TF tolerance. Labs reviewed, dietitian following. Recommendations: 1. RD to recommend TFing w/ Jevity 1.5 @ 55mL/hr w/ beneprotein 1pkt TID to best meet pts nutritional needs 2. Continue to monitor TF tolerance 3. Additional kcal (1.1 kcal/mL) will be provided by propofol when running 4. Dietitian following Dietitian to Monitor: Lab values, Intake & Output, Tube feeding tolerance, Medical course
--- NOTE | 2018-05-01 12:34 | P.CONID ---
History of Present Illness Service: ID Consult date: 05/01/18 Requesting Physician: Yemi More Reason for Consult: meningitis Primary Care Provider: JOSE CARLOS BEAR History of Present Illness: 62 yo male male presneted with 1 day MS change, lethargy He is unable to provide history history was obtained from the chart, from Dr More and family members @ b/s Apparently he also c/o headache that per mom is chronic for about 6 mos He presented with fever of 106 F, WBC of 19K In the emergency department he remained tremulous and extremely confused and was intubated by an ED attending for an airway protection. He underwent LP and has WBC of 2K + and RBC also 2K+ Gstain was negative for organisms He is sp L knee replacement in November and reportedly has swelling, redness Per reports treated with oral abx. No cultures available Review of Systems unobtainable due to endotracheal tube, unobtainable due to mental status PMFSH - History History Provided By: Forensic Ballistics Expert / EMT - Medical History Medical History: Medical History (Last Reviewed 05/01/18 @ 12:26 by Merlyn Ashley MD) Chronic pain GERD (gastroesophageal reflux disease) High cholesterol Hypertension - Surgical History Surgical History: Surgical History (Last Reviewed 05/01/18 @ 12:26 by Merlyn Ashley MD) History of left knee replacement - Family History Family History: Family History (Last Updated 05/01/18 @ 12:27 by Merlyn Ashley MD) Other No pertinent family history - Social History I have reviewed the patient's Social History: Yes - Tobacco History Smoking Status: Unknown if ever smoked Tobacco Type: Cigarettes - Alcohol History How Often Do You Have a Drink Containing Alcohol: Unable to Obtain - Substance Use History Substance History: Unable to Obtain - Travel History Recent Travel in the [place] Within the Last 8 Weeks: No Recent Travel Out of the Country Within the Last 8 Weeks: No - Immunization History Tetanus Immunization: Unable to Assess Medications and Allergies Active Medications: Active Medications Acetaminophen (Tylenol) 650 mg PO Q6H PRN PRN Reason: PAIN 1-10 AND/OR FEVER >101F Last Admin: 05/01/18 04:45 Dose: 650 mg Hydrocodone Bitart/Acetaminophen ([place] 10/325) 1 tab PO Q6H PRN PRN Reason: Acute Pain Al Hydroxide/Mg Hydroxide (Milk Of Magnjadon Liq) 30 ml PO Q12H PRN PRN Reason: Mild Constipation Albuterol (Duoneb Neb (Prn)) 1 ampul NEB Q2HR NEB PRN PRN Reason: WHEEZING Bisacodyl (Dulcolax Supp) 10 mg RECTAL DAILY PRN PRN Reason: SEVERE CONSITIPATION Chlorhexidine Gluconate (Peridex 0.12% Oral Kit) 15 ml OROPHARYNG BID@0800, 2000 [facility] Last Admin: 05/01/18 10:27 Dose: 15 ml Chlorhexidine Gluconate (Chlorhexidine 2% Cloth) 3 pack TOPICAL DAILY@0400 [facility] Stop: 05/06/18 03:59 Last Admin: 05/01/18 10:27 Dose: 3 pack Chlorhexidine Gluconate (Chlorhexidine 2% Cloth) 3 pack TOPICAL DAILY@0400 PRN PRN Reason: Extra cloth needed Stop: 05/06/18 03:59 Diazepam (Valium) 2.5 mg PO TID PRN PRN Reason: muscle spasm Famotidine (Pepcid) 20 mg PO BID [facility] Last Admin: 05/01/18 10:28 Dose: Not Given Famotidine (Pepcid Pf Inj) 20 mg IV.PUSH Q12HR [facility] Last Admin: 05/01/18 11:09 Dose: 20 mg Heparin Sodium (Porcine) (Heparin Inj) 5,000 units SQ Q8H [facility] Last Admin: 05/01/18 11:09 Dose: 5,000 units Propofol (Diprivan 1000 Mg/100 Ml Inj) 1,000 mg in 100 mls @ 3.538 mls/hr IV.CONT TITRATE PRN; Protocol PRN Reason: Per Protocol Last Admin: 05/01/18 11:09 Dose: 50 mcg/kg/min, 35.38 mls/hr Sodium Chloride (Ns Inj) 1,000 mls @ 184 mls/hr IV.CONT .Q5H27M [facility] Last Admin: 05/01/18 10:27 Dose: 184 mls/hr Midazolam HCl (Versed Inj) 50 mg in 50 mls @ 2 mls/hr IV.CONT TITRATE PRN; Protocol PRN Reason: Per Protocol Last Admin: 05/01/18 07:56 Dose: 10 mg/hr, 10 mls/hr Cefepime HCl 2,000 mg/ Sodium (Chloride) 100 mls @ 200 mls/hr IV.SIG Q12H [facility] Last Infusion: 05/01/18 05:33 Dose: Infused Fentanyl (Fentanyl 10 Mcg/Ml Premix Drip) 2,500 mcg in 250 mls @ 5 mls/hr IV.SIG TITRATE PRN; Protocol PRN Reason: Per Protocol Ampicillin Sodium 1,000 mg/ (Sodium Chloride) 100 mls @ 400 mls/hr IV.SIG Q4H [facility] Metronidazole/Sodium Chloride (Flagyl 500 Mg Inj) 100 mls @ 100 mls/hr IV.SIG Q8H [facility] Vancomycin HCl 1,750 mg/ (Sodium Chloride) 517.5 mls @ 258.75 mls/hr IV.SIG Q24H [facility] Lactulose (Lactulose Liq) 30 ml PO DAILY PRN PRN Reason: SEVERE CONSITIPATION Midazolam HCl (Versed Inj) 2 mg IV.PUSH Q1H PRN PRN Reason: SEDATION Miscellaneous Information ([facility] Ordered Lab Info) 0 each OTHER ONCE ONE Stop: 05/04/18 02:46 Miscellaneous Medication () 1 each OROPHARYNG 0000,0400,1200,1600 [facility] Last Admin: 05/01/18 10:27 Dose: 1 each Nortriptyline HCl (Pamelor) 50 mg PO DAILY [facility] Ondansetron HCl (Zofran Inj) 4 mg IV.PUSH Q6H PRN PRN Reason: NAUSEA OR VOMITING Pantoprazole Sodium (Protonix) 20 mg PO DAILY [facility] Pharmacy Profile Note (Vancomycin Consult Pharmacy) 1 each OTHER UNSCH PRN PRN Reason: Pharmacy to dose Pravastatin Sodium (Pravachol) 40 mg PO DAILY [facility] Senna/Docusate Sodium (Maria Esther-Colace) 1 tab PO BID [facility] Sennosides (Senokot) 17.2 mg PO Q12H PRN PRN Reason: Moderate Constipation Sodium Chloride (Ns Flush) 2 ml IV.FLUSH BID [facility] Last Admin: 05/01/18 10:27 Dose: 2 ml Sodium Chloride (Ns Flush) 2 ml IV.FLUSH PRN PRN PRN Reason: FLUSH AFTER USING IV ACCESS Tizanidine HCl (Zanaflex) 4 mg PO [facility] Trimethoprim/Sulfamethoxazole (Bactrim Ds) 1 tab PO BID [facility] Allergies Allergy/AdvReac Type Severity Reaction Status Date / Time No Known Allergies Allergy Verified 04/25/18 16:10 Home Medications Medication Instructions Recorded Confirmed Type hydrocodone-acetaminophen 1 tab PO Q6H PRN 04/25/18 04/30/18 History lisinopril 20 mg PO DAILY 04/25/18 04/30/18 History nortriptyline 50 mg PO DAILY 04/25/18 04/30/18 History omeprazole 20 mg PO DAILY 04/25/18 04/30/18 History simvastatin 20 mg PO DAILY 04/25/18 04/30/18 History sulfamethoxazole-trimethoprim 1 tab PO BID 04/25/18 04/30/18 History [Bactrim DS] tizanidine 4 mg PO HS 04/25/18 04/30/18 History Exam Vital signs: Vital Signs 04/30/18 22:37 04/30/18 22:47 04/30/18 23:42 Temperature 104.1 F H Pulse Rate 124 H 124 H Respiratory Rate 32 H Blood Pressure 170/91 H Pulse Oximetry 97 100 05/01/18 00:15 05/01/18 00:48 05/01/18 01:54 Temperature 103.8 F H 103.8 F H 104.4 F H Pulse Rate 119 H 102 H 133 H Respiratory Rate 18 22 24 Blood Pressure 192/96 H 215/102 H 138/91 H Pulse Oximetry 97 98 97 05/01/18 03:00 05/01/18 03:21 05/01/18 03:58 Temperature 105.4 F H 105.4 F H 104.5 F H Pulse Rate 152 H 144 H 120 H Respiratory Rate 14 14 14 Blood Pressure 134/89 212/101 H 183/91 H Pulse Oximetry 97 98 100 05/01/18 04:33 05/01/18 04:46 05/01/18 05:05 Temperature 104 F H 103.6 F H 103.5 F H Pulse Rate 113 H 115 H 111 H Respiratory Rate 18 14 14 Blood Pressure 148/76 H 168/78 H 163/76 H Pulse Oximetry 98 98 100 05/01/18 06:27 05/01/18 07:33 05/01/18 07:40 Temperature 102.7 F H 103.3 F H 103.5 F H Pulse Rate 128 H 134 H Respiratory Rate 18 53 H Blood Pressure 192/81 H 133/92 H Pulse Oximetry 100 100 05/01/18 08:00 05/01/18 08:01 05/01/18 08:07 Temperature Pulse Rate 128 H 128 H 124 H Respiratory Rate 61 H 51 H 57 H Blood Pressure 183/92 H 139/71 Pulse Oximetry 100 100 100 05/01/18 08:08 05/01/18 08:09 05/01/18 08:10 Temperature Pulse Rate 124 H 124 H 124 H Respiratory Rate 53 H 35 H 33 H Blood Pressure 137/72 143/71 H 150/71 H Pulse Oximetry 100 100 100 05/01/18 08:11 05/01/18 08:15 05/01/18 08:30 Temperature Pulse Rate 124 H 123 H 120 H Respiratory Rate 26 H 31 H 23 Blood Pressure 162/70 H 153/68 H 140/63 Pulse Oximetry 100 100 100 05/01/18 08:45 05/01/18 09:00 05/01/18 09:15 Temperature Pulse Rate 119 H 116 H 120 H Respiratory Rate 26 H 23 27 H Blood Pressure 166/78 H 151/71 H 165/80 H Pulse Oximetry 100 100 100 05/01/18 09:30 Temperature Pulse Rate 118 H Respiratory Rate 24 Blood Pressure 148/72 H Pulse Oximetry 100 Intake & Output 04/30/18 05/01/18 05/01/18 18:59 06:59 18:59 Intake Total 3500 / 3500 1250 / 1250 Output Total 700 / 700 Balance 2800 / 2800 1250 / 1250 Weight 117.934 kg Intake: IV 3500 / 3500 1250 / 1250 Versed Inj 50 mg In 50 ml @ 2 50 / 50 MG/HR 2 mls/hr IV.CONT TITRATE PRN Rx#:[id number] Diprivan 1000 mg/100 ml Inj 1, 100 / 100 200 / 200 000 mg In 100 ml @ 5 MCG/KG/MIN 3.538 mls/hr IV.CONT TITRATE PRN Rx#:[id number] NS Inj 1,000 ML @ 184 mls/hr IV 1000 / 1000 .CONT .Q5H27M [facility] Rx#:[id number] Maxipime Inj 2,000 MG In NS Inj 100 / 100 100 ML @ 200 mls/hr IV.SIG Q12H [facility] Rx#:[id number] Zosyn 3.375 GM Premix 50 ML @ 50 / 50 100 mls/hr IV.SIG ONCE ONE Rx#: [id number] NS Inj 1,000 ML @ 1000 mls/hr 3000 / 3000 IV.SIG ONCE ONE Rx#:[id number] Vancomycin Inj 1,000 MG In NS 250 / 250 Inj 250 ML @ 250 mls/hr IV.SIG ONCE ONE Rx#:[id number] Output: Urine Amount (Catheter) 700 / 700 Indwelling Urethral Catheter 700 / 700 - Constitutional no acute distress, obese, obtunded - Routine HEENT Exam Head: Present: normocephalic, atraumatic Eye: Present: PERRL, conjunctivae pink. Absent: conjunctival icterus, proptosis ENT: Present: mucous membranes moist, oropharynx clear - Routine Neck Exam Present: supple. Absent: JVD - Routine Respiratory Exam Present: patient mechanically ventilated, CTA bilaterally - Routine Cardiovascular Exam Present: RRR, S1, S2. Absent: murmur, gallop, rubs - Routine Abdominal Exam Present: soft, normoactive bowel sounds. Absent: tenderness, distended, organomegaly, mass - Routine Extremities Exam Present: edema (LLE, L knee). Absent: cyanosis, clubbing - Routine Skin Exam Present: erythema (around L knee), scars (well healed L knee) - Routine Neurological Exam sedated, intubated, unresponsive - Routine Psychiatric Exam Present: unable to assess Results - Labs CBC & Chem 7: 04/30/18 23:00 04/30/18 23:00 Labs: Laboratory Results - last 24 hr 04/30/18 04/30/18 04/30/18 23:00 23:00 23:00 WBC 19.5 H RBC 4.08 L Hgb 11.6 L Hct 36.4 L MCV 89.3 MCH 28.4 MCHC 31.8 L RDW 17.7 H Plt Count 290 MPV 9.2 Neut % (Auto) 93.4 H Lymph % (Auto) 1.1 L [place] % (Auto) 4.1 Eos % (Auto) 0.6 Baso % (Auto) 0.8 Neut # (Auto) 18.3 H Lymph # (Auto) 0.2 L [place] # (Auto) 0.8 Eos # (Auto) 0.1 Baso # (Auto) 0.1 WBC Differential . Differential Comment Auto diff final PT 11.2 INR 1.1 APTT 25.7 Sodium 138 Potassium 3.8 Chloride 106 Carbon Dioxide 21.9 Anion Gap 10 BUN 21 H Creatinine 1.51 H Estimated GFR 57 L POC Glucose Random Glucose 126 H Lactic Acid Calcium 8.2 L Magnesium 1.6 Total Bilirubin 0.4 AST 20 ALT 13 Alkaline Phosphatase 86 Total Creatine Kinase 138 CK-MB (CK-2) Less than 1.0 Troponin I 0.17 H Total Protein 7.2 Albumin 3.0 L Lipase 54 L Urine Color Urine Clarity Urine pH Ur Specific [place] Urine Protein Urine Glucose (UA) Urine Ketones Urine Occult Blood Urine Nitrate Urine Bilirubin Urine Urobilinogen Ur Leukocyte Esterase Urine RBC Urine WBC Urine Mucus Micro UA Comment Ur Microscopic Review Urine Culture Comments CSF Volume (1) CSF Supernat Color (1) CSF Gross Blood (1) CSF Volume (2) CSF Supernat Color (2) CSF Gross Blood (2) CSF Volume (3) CSF Supernat Color (3) CSF Gross Blood (3) CSF Volume (4) CSF Supernat Color (4) CSF Gross Blood (4) CSF WBC (4) CSF RBC (4) CSF Neutrophils % CSF Lymphocytes % CSF Monocytes % CSF Glucose CSF LDH CSF Lactic Acid CSF Total Protein Nasal Screen MRSA (PCR) 04/30/18 04/30/18 05/01/18 23:09 23:40 01:46 WBC RBC Hgb Hct MCV MCH MCHC RDW Plt Count MPV Neut % (Auto) Lymph % (Auto) [place] % (Auto) Eos % (Auto) Baso % (Auto) Neut # (Auto) Lymph # (Auto) [place] # (Auto) Eos # (Auto) Baso # (Auto) WBC Differential Differential Comment PT INR APTT Sodium Potassium Chloride Carbon Dioxide Anion Gap BUN Creatinine Estimated GFR POC Glucose Random Glucose Lactic Acid 3.1 H 2.4 H Calcium Magnesium Total Bilirubin AST ALT Alkaline Phosphatase Total Creatine Kinase CK-MB (CK-2) Troponin I Total Protein Albumin Lipase Urine Color Yellow Urine Clarity Hazy H Urine pH 6.0 Ur Specific [place] 1.024 Urine Protein 30 H Urine Glucose (UA) Negative Urine Ketones Negative Urine Occult Blood Small H Urine Nitrate Negative Urine Bilirubin Negative Urine Urobilinogen 2.0 H Ur Leukocyte Esterase Moderate H Urine RBC 18 H Urine WBC 81 H Urine Mucus Few H Micro UA Comment Cath-culture ind Ur Microscopic Review Not Reportable Urine Culture Comments Cath-cult indicated CSF Volume (1) CSF Supernat Color (1) CSF Gross Blood (1) CSF Volume (2) CSF Supernat Color (2) CSF Gross Blood (2) CSF Volume (3) CSF Supernat Color (3) CSF Gross Blood (3) CSF Volume (4) CSF Supernat Color (4) CSF Gross Blood (4) CSF WBC (4) CSF RBC (4) CSF Neutrophils % CSF Lymphocytes % CSF Monocytes % CSF Glucose CSF LDH CSF Lactic Acid CSF Total Protein Nasal Screen MRSA (PCR) 05/01/18 05/01/18 05/01/18 04:10 04:10 04:10 WBC RBC Hgb Hct MCV MCH MCHC RDW Plt Count MPV Neut % (Auto) Lymph % (Auto) [place] % (Auto) Eos % (Auto) Baso % (Auto) Neut # (Auto) Lymph # (Auto) [place] # (Auto) Eos # (Auto) Baso # (Auto) WBC Differential Differential Comment PT INR APTT Sodium Potassium Chloride Carbon Dioxide Anion Gap BUN Creatinine Estimated GFR POC Glucose Random Glucose Lactic Acid Calcium Magnesium Total Bilirubin AST ALT Alkaline Phosphatase Total Creatine Kinase CK-MB (CK-2) Troponin I Total Protein Albumin Lipase Urine Color Urine Clarity Urine pH Ur Specific [place] Urine Protein Urine Glucose (UA) Urine Ketones Urine Occult Blood Urine Nitrate Urine Bilirubin Urine Urobilinogen Ur Leukocyte Esterase Urine RBC Urine WBC Urine Mucus Micro UA Comment Ur Microscopic Review Urine Culture Comments CSF Volume (1) 2.9 CSF Supernat Color (1) Clear CSF Gross Blood (1) Trace A CSF Volume (2) 2.2 CSF Supernat Color (2) Clear CSF Gross Blood (2) 1+ A CSF Volume (3) 2.3 CSF Supernat Color (3) Clear CSF Gross Blood (3) 1+ A CSF Volume (4) 2.0 CSF Supernat Color (4) Clear CSF Gross Blood (4) 1+ A CSF WBC (4) 2102 H CSF RBC (4) 2089 H CSF Neutrophils % 97 CSF Lymphocytes % 1 CSF Monocytes % 2 CSF Glucose 65 CSF LDH 2 Cancelled CSF Lactic Acid 5.6 H CSF Total Protein 158.3 H Nasal Screen MRSA (PCR) 05/01/18 05/01/18 05/01/18 04:10 04:10 05:12 WBC RBC Hgb Hct MCV MCH MCHC RDW Plt Count MPV Neut % (Auto) Lymph % (Auto) [place] % (Auto) Eos % (Auto) Baso % (Auto) Neut # (Auto) Lymph # (Auto) [place] # (Auto) Eos # (Auto) Baso # (Auto) WBC Differential Differential Comment PT INR APTT Sodium Potassium Chloride Carbon Dioxide Anion Gap BUN Creatinine Estimated GFR POC Glucose Random Glucose Lactic Acid Calcium Magnesium Total Bilirubin AST ALT Alkaline Phosphatase Total Creatine Kinase CK-MB (CK-2) Troponin I 0.32 H Total Protein Albumin Lipase Urine Color Urine Clarity Urine pH Ur Specific [place] Urine Protein Urine Glucose (UA) Urine Ketones Urine Occult Blood Urine Nitrate Urine Bilirubin Urine Urobilinogen Ur Leukocyte Esterase Urine RBC Urine WBC Urine Mucus Micro UA Comment Ur Microscopic Review Urine Culture Comments CSF Volume (1) CSF Supernat Color (1) CSF Gross Blood (1) CSF Volume (2) CSF Supernat Color (2) CSF Gross Blood (2) CSF Volume (3) CSF Supernat Color (3) CSF Gross Blood (3) CSF Volume (4) CSF Supernat Color (4) CSF Gross Blood (4) CSF WBC (4) CSF RBC (4) CSF Neutrophils % CSF Lymphocytes % CSF Monocytes % CSF Glucose CSF LDH CSF Lactic Acid Cancelled CSF Total Protein Cancelled Nasal Screen MRSA (PCR) 05/01/18 05/01/18 07:45 10:11 WBC RBC Hgb Hct MCV MCH MCHC RDW Plt Count MPV Neut % (Auto) Lymph % (Auto) [place] % (Auto) Eos % (Auto) Baso % (Auto) Neut # (Auto) Lymph # (Auto) [place] # (Auto) Eos # (Auto) Baso # (Auto) WBC Differential Differential Comment PT INR APTT Sodium Potassium Chloride Carbon Dioxide Anion Gap BUN Creatinine Estimated GFR POC Glucose 111 H Random Glucose Lactic Acid Calcium Magnesium Total Bilirubin AST ALT Alkaline Phosphatase Total Creatine Kinase CK-MB (CK-2) Troponin I Total Protein Albumin Lipase Urine Color Urine Clarity Urine pH Ur Specific [place] Urine Protein Urine Glucose (UA) Urine Ketones Urine Occult Blood Urine Nitrate Urine Bilirubin Urine Urobilinogen Ur Leukocyte Esterase Urine RBC Urine WBC Urine Mucus Micro UA Comment Ur Microscopic Review Urine Culture Comments CSF Volume (1) CSF Supernat Color (1) CSF Gross Blood (1) CSF Volume (2) CSF Supernat Color (2) CSF Gross Blood (2) CSF Volume (3) CSF Supernat Color (3) CSF Gross Blood (3) CSF Volume (4) CSF Supernat Color (4) CSF Gross Blood (4) CSF WBC (4) CSF RBC (4) CSF Neutrophils % CSF Lymphocytes % CSF Monocytes % CSF Glucose CSF LDH CSF Lactic Acid CSF Total Protein Nasal Screen MRSA (PCR) Not detected - Imaging Impressions Chest X-Ray 04/30/18 22:58 CONCLUSION: No acute cardiopulmonary disease. Venous Doppler Study 04/30/18 22:58 CONCLUSION: 1. Negative exam with no evidence of deep venous thrombosis. Head CT 05/01/18 00:00 CONCLUSION: 1. No acute hemorrhage or mass effect.. 2. Moderate size retention cyst in left maxillary sinus. There is mucosal thickening in the ethmoidal air cells. . Lumbar Spine CT 05/01/18 00:05 CONCLUSION: 1. No underlying bony abnormality. There is no evidence to suggest osteomyelitis. 2. Mild to moderate central canal stenosis at L2-3 secondary to disc bulge and degenerative change involving the facets. 3. Milder disc bulges at the L3-4 and L4-5 levels with mild flattening the anterior thecal sac and no focal protrusion. 4. Degenerative changes involving the lower facet joints. Thoracic Spine CT 05/01/18 00:05 CONCLUSION: 1. Mild chronic appearing wedging of several of the midthoracic vertebral bodies. 2. No destructive change or sclerosis. Abdomen/Pelvis CT 05/01/18 00:12 CONCLUSION: 1. Unremarkable bowel gas pattern with no evidence of obstruction. 2. Unremarkable appearing kidneys. 3. Nasogastric tube in place with fluid in the distal esophagus. Chest CT 05/01/18 00:20 CONCLUSION: 1. Tiny bilateral pleural effusions. 2. Nasogastric tube in place with fluid surrounding the tube in the esophagus. Is nonspecific. 3. Apparent atelectasis in the dependent portions of lung bases. 4. The study is degraded by motion streak artifact. Assessment and Plan - Plan Suspected acute bacterial meningitis - other ethiologies herpetic meningitis, fungal meningitis sepsis ? L knee prosthetic joint infection jt Wagner: in Feb pt took 2 weeks of abx (doxy, bactrim) Acute VDRF Critically ill, unstable PLAN: Monitor CSF clx Acyclovir 10 mg/kg Cefepime 2 gm q 8 Vancomycin with levels 15-20 Ampicilin 2 gm q 4 MR brain MR L knee fu blood clx fu urine clx fu CSF clx dc bacrim jt waters RN dw family @ b/s jt Wagner over the phone
[2018-05-01] MEDS ORDERED: Acyclovir Inj 1,050 MG in Sodium Chlor 0.9% Inj 150 ML IV.SIG SCH (13:00)
--- NOTE | 2018-05-01 14:32 | MR ---
EXAM DATE: 05/01/2018 2:13 PM EST AGE/SEX: 62 years / Male INDICATIONS: . Eder fever. Sepsis. CLINICAL DATA: This is the patient's subsequent encounter. Patient reports that signs and symptoms h ave been present for 2 days and indicates a pain score of Nonresponsive. MEDICAL/SURGICAL HISTORY: None. . Left knee replacement. COMPARISON: No prior exams available for comparison. TECHNIQUE: Multiplanar, multisequence MRI examination was performed with contrast and after the intr avenous administration of 14 ml Gadavist (gadobutrol) contrast as a single exam dose. FINDINGS: The patient is status post total knee replacement. There is susceptibility artifact seen over the dis koby femur and proximal tibia from the prosthetic components. There also appears to be a prosthetic co mponent posterior aspect of the patella. Given the susceptibility over the bony structures as described above the bony signal appears otherwis e normal. There is a minimal joint effusion. There is some edema seen within the subcutaneous soft ti ssues. A focal fluid collection is not seen. Medial collateral ligament appears disrupted. This finding is not known. Some hypertrophic change at the distal medial femoral condyle. There is some laxity of the distal iliotibial band. The extensor m echanism appears intact. CONCLUSION: 1. Limited MRI examination secondary to the knee prosthesis. An area of signal abnormality within th e bony structures is not clearly identified. Susceptibility artifact does limit the evaluation. 2. No joint effusion. 3. No soft tissue fluid collections are seen. Electronically signed by: Alexsander Hicks MD 05/01/2018 2:30 PM EST
--- NOTE | 2018-05-01 15:03 | MR ---
EXAM DATE: 05/01/2018 2:55 PM EST AGE/SEX: 62 years / Male INDICATIONS: . High fever. Sepsis. CLINICAL DATA: This is the patient's subsequent encounter. Patient reports that signs and symptoms h ave been present for 2 days and indicates a pain score of Nonresponsive. MEDICAL/SURGICAL HISTORY: None. . Left knee replacement. COMPARISON: No prior exams available for comparison. TECHNIQUE: Multiplanar, multisequence examination of the brain was performed without and with 14 ml G adavist (gadobutrol) contrast as a single exam dose. FINDINGS: Cerebrum: The ventricles are normal for age. No evidence of midline shift, mass lesion, hemorrhage or acute infarction. No extraaxial fluid collections are seen. The pituitary gland and suprasellar cistern are normal in configuration. White Matter: There are some minimal scattered punctate areas of signal abnormality within the cereb ral white matter. Posterior Fossa: The cerebellum and brainstem are intact. The 4th ventricle is midline. The cerebel lopontine angle is unremarkable. The cerebellar tonsils are normal in position. Diffusion Imaging: No focal areas of restricted diffusion are seen. No evidence of acute infarction . Extracranial: The visualized portions of the orbits are unremarkable. There is opacification of much of the left maxillary sinus. There is minimal mucosal disease at the right maxillary sinus. There ar e some scattered ethmoid sinus thickening. Post Contrast: No abnormal areas of parenchymal or dural enhancement. No evidence of blood-brain ba rrier breakdown. CONCLUSION: 1. No acute intracranial abnormality is seen. 2. Minimal suspected small vessels ischemic change in the white matter. 3. Sinus disease. Electronically signed by: Alexsander Hicks MD 05/01/2018 3:01 PM EST
--- NOTE | 2018-05-01 15:07 | MR ---
EXAM DATE: 05/01/2018 2:59 PM EST AGE/SEX: 62 years / Male INDICATIONS: . High fever. Sepsis. CLINICAL DATA: This is the patient's subsequent encounter. Patient reports that signs and symptoms h ave been present for 2 days and indicates a pain score of Nonresponsive. MEDICAL/SURGICAL HISTORY: None. . Left knee replacement. COMPARISON: No prior exams available for comparison. TECHNIQUE: Multiplanar, multisequence MRI examination of the cervical spine was performed without an d with 14 ml Gadavist (gadobutrol) contrast as a single exam dose. FINDINGS: Vertebrae: Normal vertebral body height. Homogeneous marrow signal. Alignment: Normal. Cord: Normal configuration and signal. Post Fossa: The cerebellar tonsils are normal in position. Post Contrast: No abnormal areas of enhancement are seen. There is an NG tube in place. There is enh ancement seen in the esophageal mucosa adjacent to the NG tube. C2-C3: The thecal sac has a normal configuration. There is no evidence of disc herniation or spinal canal stenosis. The neural foramina are patent bilaterally. C3-C4: The thecal sac has a normal configuration. There is no evidence of disc herniation or spinal canal stenosis. The neural foramina are patent bilaterally. C4-C5: The thecal sac has a normal configuration. There is no evidence of disc herniation or spinal canal stenosis. The neural foramina are patent bilaterally. C5-C6: The thecal sac has a normal configuration. There is no evidence of disc herniation or spinal canal stenosis. The neural foramina are patent bilaterally. C6-C7: There is minimal disc bulge without significant stenosis. The neural foramina patent bilatera lly. C7-T1: No epidural impressions seen. CONCLUSION: 1. The bony structures appear intact. The disc appears grossly intact with normal signal. No abnorma l areas of enhancement are seen in the cervical spine. 2. Minimal disc bulge at the C6-C7 level. Electronically signed by: Alexsander Hicks MD 05/01/2018 3:05 PM EST
--- NOTE | 2018-05-01 15:30 | MR ---
EXAM DATE: 05/01/2018 3:26 PM EST AGE/SEX: 62 years / Male INDICATIONS: . High fever. Sepsis. CLINICAL DATA: This is the patient's subsequent encounter. Patient reports that signs and symptoms h ave been present for 2 days and indicates a pain score of Nonresponsive. MEDICAL/SURGICAL HISTORY: None. . Left knee replacement COMPARISON: No prior exams available for comparison. TECHNIQUE: Multiplanar, multisequence MRI examination of the lumbar spine was performed without and with 14 ml Gadavist (gadobutrol) contrast as a single exam dose. FINDINGS: The most caudal-appearing lumbar vertebra is numbered as L5. Vertebra: Homogeneous signal. Normal alignment. Conus: Normal level and configuration. Post Contrast: No abnormal areas of contrast enhancement are seen. T12-L1: The thecal sac has a normal diameter. No evidence of disc bulge or protrusion. The neural foramina are patent bilaterally. L1-L2: The thecal sac has a normal diameter. No evidence of disc bulge or protrusion. The neural foramina are patent bilaterally. L2-L3: The thecal sac has a normal diameter. No evidence of disc bulge or protrusion. The neural foramina are patent bilaterally. L3-L4: The thecal sac has a normal diameter. No evidence of disc bulge or protrusion. The neural foramina are patent bilaterally. There is mild facet hypertrophy. L4-L5: There is minimal disc bulge without significant stenosis. The thecal sac has a normal diamet er. The neural foramina are patent bilaterally. There is mild to moderate facet hypertrophy. L5-S1: The thecal sac has a normal diameter. No evidence of disc bulge or protrusion. The neural foramina are patent bilaterally. There is mild facet hypertrophy. CONCLUSION: 1. The bones and discs demonstrate normal signal. 2. Minimal disc bulge at the L4-L5 level. 3. Lower lumbar facet hypertrophy. Electronically signed by: Alexsander Hicks MD 05/01/2018 3:29 PM EST
--- NOTE | 2018-05-01 15:33 | MR ---
EXAM DATE: 05/01/2018 3:26 PM EST AGE/SEX: 62 years / Male INDICATIONS: . High fever sepsis. CLINICAL DATA: This is the patient's subsequent encounter. Patient reports that signs and symptoms h ave been present for 1 day and indicates a pain score of Nonresponsive. MEDICAL/SURGICAL HISTORY: None. . Left knee replacement COMPARISON: No prior exams available for comparison. TECHNIQUE: Multiplanar, multisequence MRI of the thoracic spine was performed without and with 14 ml Gadavist (gadobutrol) contrast as a single exam dose. FINDINGS: Vertebrae: The thoracic vertebral bodies are normal in height. There is focal areas of fat signal se en at the T9 and T12 and L2 vertebral bodies likely related to hemangiomas. Alignment: Normal. Cord: Normal position and configuration. Post Contrast: No abnormal areas of enhancement are seen in the cord, dural or paraspinal regions. There is consolidation or atelectasis seen at the posterior lower lungs. T1-T2: The thecal sac has a normal diameter. No evidence of disc bulge or protrusion. T2-T3: The thecal sac has a normal diameter. No evidence of disc bulge or protrusion. T3-T4: The thecal sac has a normal diameter. No evidence of disc bulge or protrusion. T4-T5: The thecal sac has a normal diameter. No evidence of disc bulge or protrusion. T5-T6: The thecal sac has a normal diameter. No evidence of disc bulge or protrusion. T6-T7: The thecal sac has a normal diameter. No evidence of disc bulge or protrusion. T7-T8: The thecal sac has a normal diameter. No evidence of disc bulge or protrusion. T8-T9: The thecal sac has a normal diameter. No evidence of disc bulge or protrusion. T9-T10: The thecal sac has a normal diameter. No evidence of disc bulge or protrusion. T10-T11: The thecal sac has a normal diameter. No evidence of disc bulge or protrusion. T11-T12: The thecal sac has a normal diameter. No evidence of disc bulge or protrusion. T12-L1: The thecal sac has a normal diameter. No evidence of disc bulge or protrusion. CONCLUSION: Negative thoracic spine MRI examination. Electronically signed by: Alexsander Hicks MD 05/01/2018 3:31 PM EST
[2018-05-01] MEDS: Nortriptyline 25 MG Capsule PO SCH (16:05)
[2018-05-01] MEDS: Senna/Docusate Sodium 8.6/50 MG Tablet PO SCH ×2 (16:05→20:51)
[2018-05-01] MEDS: Acyclovir Inj 1,050 MG in Sodium Chlor 0.9% Inj 150 ML IV.SIG SCH (16:22)
[2018-05-01] MEDS ORDERED: Gadobutrol PF 15 MMOL/15 ML Vial (for RAD) IV.SIG ONE (17:21)
[2018-05-02] MEDS: Oral Hygiene Kit OROPHARYNG SCH ×4 (00:31→15:24)
[2018-05-02] MEDS: Acyclovir Inj 1,050 MG in Sodium Chlor 0.9% Inj 150 ML IV.SIG SCH ×3 (00:32→15:22)
[2018-05-02] MEDS: Sod Chloride 0.9% Inj 1,000 ML IV.CONT SCH ×5 (00:32→19:54)
[2018-05-02] MEDS: Propofol 1000 mg/100 ml Inj 1,000 MG/100 ML BOTTLE IV.CONT PRN ×8 (01:04→23:52)
[2018-05-02] MEDS ORDERED: Vancomycin Inj 1,750 MG in Sodium Chlor 0.9% Inj 500 ML IV.SIG SCH (03:00)
[2018-05-02] MEDS: Chlorhexidine Gluconate 2% 1 Pack (2 Cloths) TOPICAL SCH (03:02)
[2018-05-02] MEDS: Heparin - SQ 10,000 UNITS/ML Vial SQ SCH ×3 (03:02→18:08)
[2018-05-02 04:43] LABS: Activated Partial Thrombo Time 27.2 sec (23.4-31.7); INR 1.1 Ratio; Prothrombin Time 11.1 sec (9.8-11.6)
[2018-05-02 05:07] LABS: Hematocrit 35.8 % (39.0-51.0); Hemoglobin 10.8 gm/dL (13.0-17.0); Mean Corpuscular Hemoglobin 28.4 pg (27.0-34.0); Mean Corpuscular Volume 94.1 fL (80.0-100.0); Mean Platelet Volume 9.1 fL (7.0-11.0); Platelet Count 191 th/mm3 (150-450); Red Blood Count 3.81 mil/mm3 (4.50-5.90); Red Cell Distribution Width 18.8 % (11.6-17.2); White Blood Count 16.2 th/mm3 (4.0-11.0)
[2018-05-02 05:10] LABS: Mean Corpuscular HGB Conc 30.2 % (32.0-36.0)
[2018-05-02 05:29] LABS: Albumin 2.1 g/dL (3.4-5.0); Calcium 7.2 mg/dL (8.5-10.1); Carbon Dioxide 16.3 meq/L (21.0-32.0); Magnesium 1.8 mg/dL (1.5-2.5); Phosphorus 4.6 mg/dL (2.5-4.9); Total Protein 6.1 g/dL (6.4-8.2)
[2018-05-02] MEDS: Midazolam 50 MG/50 ML Inj 50 MG/50 ML BAG IV.CONT PRN ×2 (05:38→19:25)
[2018-05-02] MEDS ORDERED: RESP: Albuterol Concentrated 2.5 MG/0.5 ML Neb NEB ONE (06:31)
[2018-05-02] MEDS ORDERED: Sodium Polystyrene Sulfonate/Sorbitol Liq 15 GM/60 ML UDC PO ONE ×2 (06:31→06:37)
[2018-05-02] MEDS ORDERED: Dextrose 50% in Water 50 ML Vial IV.PUSH ONE (06:31)
[2018-05-02] MEDS ORDERED: Calcium Chloride Inj 1 GM in Sodium Chlor 0.9% Inj 100 ML IV.SIG ONE (06:31)
[2018-05-02] MEDS ORDERED: Sod Chloride 0.9% Inj 1,000 ML IV.SIG ONE (06:36)
[2018-05-02] MEDS ORDERED: Sodium Bicarbonate 8.4% Inj 50 MEQ/50 ML Syringe IV.PUSH ONE (06:37)
--- NOTE | 2018-05-02 07:07 | P.PNCC ---
Subjective Subjective Remarks/Hospital Course: 62 year old male presents with a history of developing altered mentation earlier in the evening tonight. Patient's family reports that the patient has not been well for the last week, intermittently confused, however it became much worse this evening. They report that they had been trying to convince him to come to the emergency department, however he refused. The patient has a history of having a left knee replacement with chronic intermittent swelling and redness associated with that leg. He has been on antibiotic in the past for this. 3 days ago he developed increased swelling and more redness than ever before earlier today. The patient was experiencing intermittent tremors and rigors throughout the day today. The patient's family reports that approximately a week ago he was seen in the [place] emergency department related to back pain mainly on the right side of his mid back area. According to the record, he did have a urinalysis done that showed no evidence of infection, however the record from that evaluation revealed that the patient was on Bactrim for some reason the patient's family is unclear about. Unfortunately, the patient himself is unable to provide any significant history as he arrives with a fever of 104.1. In the emergency department he remained tremulous and extremely confused and was intubated by an ED attending for an airway protection. 05/02: Patient remains intubated and sedated, very low urine output over the past 24 hours, K+ 6.0 today with no EKG changes. Objective Vital Signs / I&O: Vital Signs 05/01/18 07:33 05/01/18 07:40 05/01/18 08:00 Temperature 103.3 F H 103.5 F H Pulse Rate 134 H 112 H Respiratory Rate 53 H 61 H Blood Pressure 133/92 H Pulse Oximetry 100 100 05/01/18 08:01 05/01/18 08:07 05/01/18 08:08 Temperature Pulse Rate 128 H 124 H 124 H Respiratory Rate 51 H 57 H 53 H Blood Pressure 183/92 H 139/71 137/72 Pulse Oximetry 100 100 100 05/01/18 08:09 05/01/18 08:10 05/01/18 08:11 Temperature Pulse Rate 124 H 124 H 124 H Respiratory Rate 35 H 33 H 26 H Blood Pressure 143/71 H 150/71 H 162/70 H Pulse Oximetry 100 100 100 05/01/18 08:15 05/01/18 08:30 05/01/18 08:45 Temperature Pulse Rate 123 H 120 H 119 H Respiratory Rate 31 H 23 26 H Blood Pressure 153/68 H 140/63 166/78 H Pulse Oximetry 100 100 100 05/01/18 09:00 05/01/18 09:15 05/01/18 09:30 Temperature Pulse Rate 116 H 120 H 118 H Respiratory Rate 23 27 H 24 Blood Pressure 151/71 H 165/80 H 148/72 H Pulse Oximetry 100 100 100 05/01/18 09:45 05/01/18 10:00 05/01/18 10:15 Temperature Pulse Rate 126 H 122 H 118 H Respiratory Rate 39 H 24 22 Blood Pressure 174/100 H 165/78 H 151/67 H Pulse Oximetry 100 100 100 05/01/18 10:30 05/01/18 10:45 05/01/18 11:00 Temperature Pulse Rate 114 H 110 H 109 H Respiratory Rate 21 19 18 Blood Pressure 138/60 122/60 119/56 L Pulse Oximetry 100 100 100 05/01/18 11:15 05/01/18 11:30 05/01/18 11:45 Temperature Pulse Rate 104 H 102 H 100 H Respiratory Rate 11 L 36 H 15 Blood Pressure 117/56 L 118/61 111/65 Pulse Oximetry 100 100 100 05/01/18 12:00 05/01/18 12:15 05/01/18 12:19 Temperature 100.8 F H 100.2 F H Pulse Rate 98 H 94 H Respiratory Rate 16 Blood Pressure Pulse Oximetry 100 100 100 05/01/18 13:09 05/01/18 13:15 05/01/18 13:17 Temperature Pulse Rate Respiratory Rate Blood Pressure 100/60 99/58 L 97/56 L Pulse Oximetry 05/01/18 14:40 05/01/18 14:50 05/01/18 15:00 Temperature Pulse Rate 115 H 110 H Respiratory Rate 25 H 19 Blood Pressure Pulse Oximetry 100 100 05/01/18 16:00 05/01/18 16:15 05/01/18 16:30 Temperature Pulse Rate 113 H 112 H 112 H Respiratory Rate 22 19 15 Blood Pressure 145/82 H 122/66 115/62 Pulse Oximetry 100 87 L 100 05/01/18 16:45 05/01/18 17:00 05/01/18 17:15 Temperature Pulse Rate 112 H 109 H 105 H Respiratory Rate 16 15 16 Blood Pressure 113/56 L 102/55 L 101/58 L Pulse Oximetry 100 100 100 05/01/18 19:35 05/01/18 20:00 05/01/18 22:00 Temperature 97.8 F Pulse Rate 87 83 Respiratory Rate 16 15 Blood Pressure 103/56 L Pulse Oximetry 99 99 05/01/18 23:47 05/02/18 00:00 05/02/18 02:00 Temperature 97.9 F Pulse Rate 85 90 Respiratory Rate 14 14 Blood Pressure 102/62 Pulse Oximetry 100 100 05/02/18 03:29 05/02/18 03:30 05/02/18 04:00 Temperature 97.5 F L Pulse Rate 86 95 H Respiratory Rate 16 16 17 Blood Pressure 107/55 L Pulse Oximetry 100 100 05/02/18 06:00 Temperature Pulse Rate 98 H Respiratory Rate Blood Pressure Pulse Oximetry Intake & Output 05/01/18 05/01/18 05/02/18 06:59 18:59 06:59 Intake Total 3500 / 3500 3221 / 3221 4372 / 4372 Output Total 700 / 700 1150 / 1150 275 / 275 Balance 2800 / 2800 2071 / 2071 4097 / 4097 Weight 117.934 kg 140.5 kg Intake: IV 3500 / 3500 3221 / 3221 4281 / 4281 Versed Inj 50 mg In 50 ml @ 2 100 / 100 100 / 100 MG/HR 2 mls/hr IV.CONT TITRATE PRN Rx#:[id number] Diprivan 1000 mg/100 ml Inj 1, 100 / 100 400 / 400 300 / 300 000 mg In 100 ml @ 5 MCG/KG/MIN 3.538 mls/hr IV.CONT TITRATE PRN Rx#:[id number] NS Inj 1,000 ML @ 184 mls/hr IV 1999 .CONT .Q5H27M [facility] Rx#:[id number] Zovirax Inj 1,050 MG In NS Inj 171 / 171 342 / 342 150 ML @ 171 mls/hr IV.SIG Q8H [facility] Rx#:[id number] Ampicillin Inj 2,000 MG In NS 100 / 100 400 / 400 Inj 100 ML @ 400 mls/hr IV.SIG Q4H [facility] Rx#:[id number] Maxipime Inj 2,000 MG In NS Inj 100 / 100 100 / 100 100 / 100 100 ML @ 200 mls/hr IV.SIG Q8H [facility] Rx#:[id number] Zosyn 3.375 GM Premix 50 ML @ 50 / 50 100 mls/hr IV.SIG ONCE ONE Rx#: [id number] NS Inj 1,000 ML @ 1000 mls/hr 3000 / 3000 IV.SIG ONCE ONE Rx#:[id number] Vancomycin Inj 1,000 MG In NS 250 / 250 Inj 250 ML @ 250 mls/hr IV.SIG ONCE ONE Rx#:[id number] Vancomycin Inj 1,750 MG In NS 518 / 518 Inj 500 ML @ 258.75 mls/hr IV. SIG Q24H [facility] Rx#:[id number] fentaNYL 10 mcg/mL Premix Drip 250 / 250 2,500 mcg In 250 ml @ 50 MCG/HR 5 mls/hr IV.SIG TITRATE PRN Rx #:[id number] Flagyl 500 MG Inj 100 ML @ 100 100 / 100 100 / 100 mls/hr IV.SIG Q8H [facility] Rx#: [id number] Tube Feeding Output: Urine Amount (Catheter) 700 / 700 550 / 550 275 / 275 Indwelling Urethral Catheter 700 / 700 550 / 550 275 / 275 Gastric Drainage 600 / 600 Oral 600 / 600 Other: Date of Last Bowel Movement 04/30/18 Result Diagrams: 05/02/18 03:53 05/02/18 03:53 Objective Remarks: GEN: Intubated and sedated HEENT: NCAT, ETT and OGT in place NECK: Trachea midline CARDIO: Borderline tachy to 100s, regular RESP: Coarse mechanical breath sounds bilaterally ABD/GI: Soft, non-distended EXT/MSK: No peripheral edema, warm and well-perfused SKIN: No erythema or rashes noted, well-healed surgical incisional scar to left knee NEURO: GCS 6T (E1VTM4), RASS -1 PSYCH: Unable to assess Assessment and Plan - Assessment and Plan Plan: 62yM presenting with altered mental status, profound hyperthermia, sepsis/ SIRS , respiratory failure requiring mechanical ventilation, now with acute kidney injury and hyperkalemia NEURO: -Goal RASS 0 to -1, continue fentanyl/ propofol -CT and MRI brain/ C/T/L spine showed no acute abnormalities -LP shows 2100 WBCs (mostly neutrophils) and 2K RBCs, opening pressure 25/ closing pressure 19 -Continue antibiotics as detailed below -Continue home nortriptyline- patient does not have clonus or rigidity on exam, low suspicion for NMS/ serotonin syndrome CARDIO: -Not currently on pressors -Will obtain echo RESP: -Continue mechanical ventilation, not appropriate for weaning while still unstable -Vent bundle -Nebs -Repeat CXR today to see if there is any interval change since admission F/E/N, RENAL: -Hyperkalemia: send stat repeat labs to confirm -Medical treatment (calcium, bicarb, insulin/ glucose, kayexalate, lasix) and recheck BMP this afternoon -EKG shows no findings concerning for hyperkalemia -Follow urine output -RENO likely due to sepsis, avoid nephrotoxic drugs ID: -No clear source seen on imaging, no joint effusion on MRI of left knee, follow up LP cultures/ viral studies, currently treating for presumed meningitis -Blood cultures show no growth at 1 day -Influenza and MRSA swab negative -ID recommendations appreciated -Continue acyclovir, ampicillin, vanco, cefepime PROPHY: -SCDs, SQH -Pepcid Counseling/ Coordination of Care: This patient is critically ill with impairment of one or more vital organ systems with a high probability of imminent or life-threatening deterioration. High-complexity medical decision making was required to support vital organ function and/ or prevent deterioration in the patient's condition. Total critical care time spent is 60 minutes giving full attention to this patient. This includes examining the patient, gathering history from someone other than the patient (i.e. chart review), discussing the patient's care with other providers, managing the patient's blood pressure and ventilator settings, ordering and interpreting radiologic studies, ordering and interpreting laboratory values, managing the patient's sedation requirements, treatment of hyperkalemia, and documentation. Amount of time is separate from teaching, counseling the patient and/or family, and exclusive of procedures. To help prompt me to consider important information that might be impacting today's encounter and assessment, information from prior notes written by myself or my colleagues may have been "brought forward" into today's note. My signature on this note, however, is an attestation that I personally performed the exam, history, and/or decision-making noted today, and, unless otherwise indicated, the interactions with patient, family, and staff as well as the review of records all occurred today. I also attest that the listed assessment and stated plan reflect my best clinical judgment today based on the combination of historical information, prior notes, and today's exam/ interactions. Code Status: Full
[2018-05-02 07:27] LABS: Acanthocytes Occ; Eosinophils 2 % (0-4); Lymphocytes 3 % (9-44); Ovalocytes 1+; Platelet Estimate Normal (Normal); Platelet Morphology Normal (Normal)
--- NOTE | 2018-05-02 07:44 | XR ---
EXAM DATE: 05/02/2018 7:40 AM EST AGE/SEX: 62 years / Male INDICATIONS: Respiratory failure CLINICAL DATA: This is the patient's subsequent encounter. Patient reports that signs and symptoms h ave been present for 1 week and indicates a pain score of Nonresponsive. MEDICAL/SURGICAL HISTORY: . UTI, Cellulitis, AMS Non-responsive. COMPARISON: [facility], CHEST 1V SINGLE AP, 04/30/2018. . FINDINGS: The endotracheal tube has its tip in good position 4 cm above the diomedes. A nasogastric tube has its tip below diaphragm. The heart is enlarged. Minimal central pulmonary vascular congestion is noted. B ibasilar atelectatic changes are noted. CONCLUSION: 1. Minimal central pulmonary vascular congestion. 2. Minimal bibasilar atelectasis. 3. Cardiomegaly. 4. Endotracheal tube and nasogastric tube in good positions. Electronically signed by: Shaquille Gallego MD 05/02/2018 7:43 AM EST
[2018-05-02 08:13] LABS: Troponin I 0.21 ng/mL (0.02-0.05)
[2018-05-02 08:20] LABS: Potassium 5.4 meq/L (3.5-5.1)
[2018-05-02 08:32] LABS: Calcium-Albumin Corrected 7.5 mg/dL (8.5-10.1); Total Protein 6.1 g/dL (6.4-8.2)
[2018-05-02] MEDS: Nortriptyline 25 MG Capsule PO SCH (08:57)
[2018-05-02] MEDS: Senna/Docusate Sodium 8.6/50 MG Tablet PO SCH ×2 (08:58→20:31)
[2018-05-02] MEDS: Famotidine PF Inj 20 MG/2 ML Vial IV.PUSH SCH ×2 (08:58→20:31)
[2018-05-02] MEDS: Famotidine 20 MG Tablet PO SCH ×2 (08:58→20:31)
[2018-05-02] MEDS: Chlorhexidine 0.12% Oral Kit 15 ML UDC OROPHARYNG SCH ×2 (08:58→19:55)
[2018-05-02] MEDS: fentaNYL 10 mcg/mL Premix Drip 2,500 MCG/250 ML BAG IV.SIG PRN ×2 (10:16→22:59)
[2018-05-02 17:15] LABS: Calcium 7.1 mg/dL (8.5-10.1); Carbon Dioxide 20.1 meq/L (21.0-32.0); Potassium 5.1 meq/L (3.5-5.1)
--- NOTE | 2018-05-02 17:58 | ECG ---
Date Performed: 05/02/2018 Time Performed: 06:48:05 PTAGE: 62 years EKG: SINUS TACHYCARDIA RIGHT BUNDLE BRANCH BLOCK LEFT ANTERIOR FASCICULAR BLOCK ABNORMAL ECG PREVIOUS TRACING : 05/01/2018 10.56 Since the previous tracing, no significant change noted DOCTOR: Leland Woods Interpretating Date/Time 05/02/2018 17:57:21
[2018-05-02 18:07] LABS: Calcium-Albumin Corrected 7.8 mg/dL (8.5-10.1); Total Protein 5.8 g/dL (6.4-8.2)
--- NOTE | 2018-05-02 18:13 | ECHRPT ---
Indication: Sepsis Possible Endocarditis CONCLUSIONS Normal left ventricular size. EF@60% Mild concentric left ventricular hypertrophy. The left atrial size is mildly dilated. There is mild tricuspid valve regurgitation. The estimated pulmonary arterial pressure is 45 mmHg. Normal left ventricular size. Mild concentric left ventricular hypertrophy. The left atrial size is mildly dilated. There is mild tricuspid valve regurgitation. The estimated pulmonary arterial pressure is 45 mmHg. The transthoracic study is normal by two-dimensional, color flow imaging and Doppler interrogation. BP: 105 / 56 HR: 103 Rhythm: MEASUREMENTS (Male / Female) Normal Values Technical Quality:Fair 2D ECHO LV Diastolic Diameter PLAX 5.0 cm 4.2 - 5.9 / 3.9 - 5.3 cm LV Systolic Diameter PLAX 2.6 cm IVS Diastolic Thickness 1.3 cm 0.6 - 1.0 / 0.6 - 0.9 cm LVPW Diastolic Thickness 1.3 cm 0.6 - 1.0 / 0.6 - 0.9 cm LV Relative Wall Thickness 0.5 RV Internal Dim ED PLAX 3.5 cm LVOT Diameter 2.2 cm Aortic Root Diameter 3.1 cm LA Systolic Diameter LX 4.4 cm 3.0 - 4.0 / 2.7 - 3.8 cm DOPPLER AV Peak Velocity 195.0 cm/s AV Peak Gradient 15.2 mmHg LVOT Peak Velocity 130.0 cm/s LVOT Peak Gradient 6.8 mmHg AV Area Cont Eq pk 2.5 cm Mitral E Point Velocity 65.6 cm/s Mitral A Point Velocity 63.7 cm/s Mitral E to A Ratio 1.0 LV E' Lateral Velocity 11.6 cm/s Mitral E to LV E' Lateral Ratio 5.7 LV E' Septal Velocity 6.8 cm/s Mitral E to LV E' Septal Ratio 9.6 TR Peak Velocity 297.0 cm/s TR Peak Gradient 35.3 mmHg Right Atrial Pressure 10.0 mmHg Pulmonary Artery Systolic Pressu 45.3 mmHg Right Ventricular Systolic Press 45.3 mmHg PV Peak Velocity 129.0 cm/s PV Peak Gradient 6.7 mmHg FINDINGS LEFT VENTRICLE Normal left ventricular size. Mild concentric left ventricular hypertrophy. The left ventricular systolic function is normal with an estimated ejection fraction in the range of 60-65%. RIGHT VENTRICLE Normal right ventricular size and systolic function. LEFT ATRIUM The left atrial size is mildly dilated. RIGHT ATRIUM The right atrial size is normal. ATRIAL SEPTUM Normal atrial septal thickness without atrial level shunting by limited color doppler interrogation. AORTA The aortic root and proximal ascending aorta are normal in size on limited imaging. MITRAL VALVE Structurally normal mitral valve. No mitral valve stenosis or regurgitation. AORTIC VALVE Trileaflet aortic valve. No aortic valve stenosis or regurgitation. TRICUSPID VALVE There is mild tricuspid valve regurgitation. The estimated pulmonary arterial pressure is 45 mmHg. PULMONARY VALVE No pulmonary valve regurgitation or stenosis. VESSELS The inferior vena cava is normal in size. PERICARDIUM No pericardial effusion. Santana Ashley MD, FACC, [facility] [place] (Electronically Signed) Final Date:02 May 2018 18:11
--- NOTE | 2018-05-02 20:05 | P.PNADD ---
Addendum to Inpatient Note Additional information: seen around 1830 today full note to follow
--- NOTE | 2018-05-02 23:37 | P.PNID ---
Subjective Remarks: pt was seen earlier today he is stable CSF clx NGTD HSV negative fever occasional low grade tolerating trickle TF Antibiotics: vanco cefepime acyclovir flagyl ampicillin Allergies/Adverse Reactions: Allergies No Known Allergies Allergy (Verified 04/25/18 16:10) Objective Vital Signs 05/01/18 23:47 05/02/18 00:00 05/02/18 02:00 Temperature 97.9 F Pulse Rate 85 90 Respiratory Rate 14 14 Blood Pressure 102/62 Pulse Oximetry 100 100 05/02/18 03:29 05/02/18 03:30 05/02/18 04:00 Temperature 97.5 F L Pulse Rate 86 95 H Respiratory Rate 16 16 17 Blood Pressure 107/55 L Pulse Oximetry 100 100 05/02/18 06:00 05/02/18 07:44 05/02/18 08:00 Temperature 98.1 F Pulse Rate 98 H 104 H 104 H Respiratory Rate 22 19 Blood Pressure 115/57 L Pulse Oximetry 100 05/02/18 10:00 05/02/18 11:45 05/02/18 12:00 Temperature 99.3 F Pulse Rate 108 H 108 H Respiratory Rate 16 15 Blood Pressure 107/53 L Pulse Oximetry 99 05/02/18 14:00 05/02/18 16:00 05/02/18 16:14 Temperature 99.7 F H Pulse Rate 102 H 104 H Respiratory Rate 18 14 Blood Pressure 95/51 L Pulse Oximetry 94 L 05/02/18 18:00 05/02/18 20:00 05/02/18 20:59 Temperature 98.4 F Pulse Rate 101 H 99 H Respiratory Rate 14 14 Blood Pressure 91/54 L Pulse Oximetry 98 97 05/02/18 22:00 Temperature Pulse Rate 100 H Respiratory Rate Blood Pressure Pulse Oximetry Intake & Output 05/02/18 05/02/18 05/03/18 06:59 18:59 06:59 Intake Total 4372 / 4372 5055 / 5055 500 / 500 Output Total 275 / 275 850 / 850 Balance 4097 / 4097 4205 / 4205 500 / 500 Weight 140.5 kg Intake: IV 4281 / 4281 4802 / 4802 500 / 500 Versed Inj 50 mg In 50 ml @ 2 100 / 100 50 / 50 MG/HR 2 mls/hr IV.CONT TITRATE PRN Rx#:[id number] Diprivan 1000 mg/100 ml Inj 1, 300 / 300 400 / 400 100 / 100 000 mg In 100 ml @ 5 MCG/KG/MIN 3.538 mls/hr IV.CONT TITRATE PRN Rx#:[id number] NS Inj 1,000 ML @ 184 mls/hr IV 1999 .CONT .Q5H27M [facility] Rx#:[id number] Zovirax Inj 1,050 MG In NS Inj 342 / 342 342 / 342 150 ML @ 171 mls/hr IV.SIG Q8H [facility] Rx#:[id number] Ampicillin Inj 2,000 MG In NS 400 / 400 200 / 200 Inj 100 ML @ 400 mls/hr IV.SIG Q4H [facility] Rx#:[id number] Ampicillin Inj 2,000 MG In NS 100 / 100 100 / 100 Inj 100 ML @ 400 mls/hr IV.SIG Q4H [facility] Rx#:[id number] Calcium Chloride Inj 1 GM In NS 110 / 110 Inj 100 ML @ 110 mls/hr IV.SIG ONCE ONE Rx#:[id number] Maxipime Inj 2,000 MG In NS Inj 100 / 100 200 / 200 100 ML @ 200 mls/hr IV.SIG Q8H [facility] Rx#:[id number] NS Inj 1,000 ML @ Wide Open IV. 1000 / 1000 SIG BOLUS ONE Rx#:[id number] Vancomycin Inj 1,750 MG In NS 518 / 518 Inj 500 ML @ 258.75 mls/hr IV. SIG Q24H [facility] Rx#:[id number] fentaNYL 10 mcg/mL Premix Drip 250 / 250 250 / 250 250 / 250 2,500 mcg In 250 ml @ 50 MCG/HR 5 mls/hr IV.SIG TITRATE PRN Rx #:[id number] Flagyl 500 MG Inj 100 ML @ 100 100 / 100 200 / 200 mls/hr IV.SIG Q8H [facility] Rx#: [id number] Tube Feeding / 253 / 253 Output: Urine Amount (Catheter) 275 / 275 850 / 850 Indwelling Urethral Catheter 275 / 275 850 / 850 Other: Date of Last Bowel Movement 04/30/18 04/30/18 04/30/18 05/01/18 04:10 Lumbar Puncture Gram Stain - Final 05/01/18 04:10 Lumbar Puncture CSF Culture - Preliminary No growth in 24 hours 04/30/18 23:09 Blood - Peripheral Aerobic Blood Culture - Preliminary No growth in 2 days 04/30/18 23:09 Blood - Peripheral Anaerobic Blood Culture - Preliminary No growth in 2 days 04/30/18 23:00 Blood - Peripheral Aerobic Blood Culture - Preliminary No growth in 2 days 04/30/18 23:00 Blood - Peripheral Anaerobic Blood Culture - Preliminary No growth in 2 days 04/30/18 23:40 Catheterized Urine Urine Culture - Preliminary No growth in 24 hours 05/01/18 00:00 Nasal Wash Influenza Types A,B Antigen - Final Negative for FLU A and B antigen Infection due to influenza A or B cannot be ruled out since the antigen present in the sample may be below the detection limit of the test. Lab - Hematology Results 04/30/18 05/02/18 23:00 03:53 WBC 19.5 H 16.2 H RBC 4.08 L 3.81 L Hgb 11.6 L 10.8 L Hct 36.4 L 35.8 L MCV 89.3 94.1 D MCH 28.4 28.4 MCHC 31.8 L 30.2 L RDW 17.7 H 18.8 H Plt Count 290 191 D MPV 9.2 9.1 Prelim Diff (Auto) Manual diff required Neut % (Auto) 93.4 H Lymph % (Auto) 1.1 L [place] % (Auto) 4.1 Eos % (Auto) 0.6 Baso % (Auto) 0.8 Neut # (Auto) 18.3 H Lymph # (Auto) 0.2 L [place] # (Auto) 0.8 Eos # (Auto) 0.1 Baso # (Auto) 0.1 WBC Differential . Manual diff final Seg Neuts % (Manual) 70 Band Neuts % (Manual) 25 H Lymphocytes % (Manual) 3 L Eosinophils % (Manual) 2 Abs Neuts (Manual) 15.4 H Differential Comment Auto diff final . Platelet Estimate Normal Platelet Morphology Normal Ovalocytes 1+ H Acanthocytes (Spur) Occ H Lab - Chemistry Results 04/30/18 04/30/18 05/01/18 23:00 23:09 01:46 Sodium 138 Potassium 3.8 Chloride 106 Carbon Dioxide 21.9 Anion Gap 10 BUN 21 H Creatinine 1.51 H Estimated GFR 57 L POC Glucose Random Glucose 126 H Lactic Acid 3.1 H 2.4 H Calcium 8.2 L Prot Corrected Calcium Phosphorus Magnesium 1.6 Total Bilirubin 0.4 AST 20 ALT 13 Alkaline Phosphatase 86 Total Creatine Kinase 138 CK-MB (CK-2) Less than 1.0 Troponin I 0.17 H Total Protein 7.2 Albumin 3.0 L Lipase 54 L 05/01/18 05/01/18 05/01/18 05:12 10:11 16:00 Sodium Potassium Chloride Carbon Dioxide Anion Gap BUN Creatinine Estimated GFR POC Glucose 111 H Random Glucose Lactic Acid Calcium Prot Corrected Calcium Phosphorus Magnesium Total Bilirubin AST ALT Alkaline Phosphatase Total Creatine Kinase CK-MB (CK-2) Troponin I 0.32 H 0.36 H Total Protein Albumin Lipase 05/02/18 05/02/18 05/02/18 03:53 07:20 07:20 Sodium 136 138 Potassium 6.0 H D 5.4 H Chloride 111 H 110 H Carbon Dioxide 16.3 L 22.0 Anion Gap 9 6 BUN 36 H 40 H Creatinine 2.21 H 2.27 H Estimated GFR 37 L 36 L POC Glucose Random Glucose 94 109 H Lactic Acid Calcium 7.2 L* D 7.0 L* Prot Corrected Calcium 7.7 L 7.5 L Phosphorus 4.6 Magnesium 1.8 Total Bilirubin 0.3 AST 46 H ALT 14 Alkaline Phosphatase 78 Total Creatine Kinase CK-MB (CK-2) Troponin I 0.21 H Cancelled Total Protein 6.1 L D 6.1 L Albumin 2.1 L D Lipase 05/02/18 16:09 Sodium 141 Potassium 5.1 Chloride 112 H Carbon Dioxide 20.1 L Anion Gap 9 BUN 43 H Creatinine 2.33 H Estimated GFR 34 L POC Glucose Random Glucose 104 Lactic Acid Calcium 7.1 L* Prot Corrected Calcium 7.8 L Phosphorus Magnesium Total Bilirubin AST ALT Alkaline Phosphatase Total Creatine Kinase CK-MB (CK-2) Troponin I Total Protein 5.8 L Albumin Lipase Imaging: ITS Impressions Venous Doppler Study 04/30/18 22:58 CONCLUSION: 1. Negative exam with no evidence of deep venous thrombosis. Cervical Spine MRI 05/01/18 00:00 CONCLUSION: 1. The bony structures appear intact. The disc appears grossly intact with normal signal. No abnormal areas of enhancement are seen in the cervical spine. 2. Minimal disc bulge at the C6-C7 level. Head CT 05/01/18 00:00 CONCLUSION: 1. No acute hemorrhage or mass effect.. 2. Moderate size retention cyst in left maxillary sinus. There is mucosal thickening in the ethmoidal air cells. . Head MRI 05/01/18 00:00 CONCLUSION: 1. No acute intracranial abnormality is seen. 2. Minimal suspected small vessels ischemic change in the white matter. 3. Sinus disease. Knee MRI 05/01/18 00:00 CONCLUSION: 1. Limited MRI examination secondary to the knee prosthesis. An area of signal abnormality within the bony structures is not clearly identified. Susceptibility artifact does limit the evaluation. 2. No joint effusion. 3. No soft tissue fluid collections are seen. Lumbar Spine MRI 05/01/18 00:00 CONCLUSION: 1. The bones and discs demonstrate normal signal. 2. Minimal disc bulge at the L4-L5 level. 3. Lower lumbar facet hypertrophy. Thoracic Spine MRI 05/01/18 00:00 CONCLUSION: Negative thoracic spine MRI examination. Lumbar Spine CT 05/01/18 00:05 CONCLUSION: 1. No underlying bony abnormality. There is no evidence to suggest osteomyelitis. 2. Mild to moderate central canal stenosis at L2-3 secondary to disc bulge and degenerative change involving the facets. 3. Milder disc bulges at the L3-4 and L4-5 levels with mild flattening the anterior thecal sac and no focal protrusion. 4. Degenerative changes involving the lower facet joints. Thoracic Spine CT 05/01/18 00:05 CONCLUSION: 1. Mild chronic appearing wedging of several of the midthoracic vertebral bodies. 2. No destructive change or sclerosis. Abdomen/Pelvis CT 05/01/18 00:12 CONCLUSION: 1. Unremarkable bowel gas pattern with no evidence of obstruction. 2. Unremarkable appearing kidneys. 3. Nasogastric tube in place with fluid in the distal esophagus. Chest CT 05/01/18 00:20 CONCLUSION: 1. Tiny bilateral pleural effusions. 2. Nasogastric tube in place with fluid surrounding the tube in the esophagus. Is nonspecific. 3. Apparent atelectasis in the dependent portions of lung bases. 4. The study is degraded by motion streak artifact. Chest X-Ray 05/02/18 00:00 CONCLUSION: 1. Minimal central pulmonary vascular congestion. 2. Minimal bibasilar atelectasis. 3. Cardiomegaly. 4. Endotracheal tube and nasogastric tube in good positions. Physical Exam: GENERAL: NAD sedated intubated SKIN: Warm and dry. HEAD: Atraumatic. Normocephalic. EYES: Pupils equal and round. No scleral icterus. No injection or drainage. ENT: No nasal bleeding or discharge. Mucous membranes pink and moist. NECK: Trachea midline. No JVD. CARDIOVASCULAR: Regular rate and rhythm. RESPIRATORY: No accessory muscle use. Clear to auscultation. Breath sounds equal bilaterally. GASTROINTESTINAL: Abdomen soft, non-tender, nondistended. Hepatic and splenic margins not palpable. MUSCULOSKELETAL: Extremities without clubbing, cyanosis, + 2 edema, more prominent on LLE. No obvious deformities. NEUROLOGICAL: heavily sedted and unresponsive PSYCHIATRIC: unable to assess Assessment and Plan - Plan Suspected acute bacterial meningitis - other ethiologies herpetic meningitis, fungal meningitis sepsis ? L knee prosthetic joint infection dw Dr Wagner: in Sep pt took 2 weeks of abx (doxy, bactrim) MR knee w/o fluid collections Acute VDRF Critically ill, stable PLAN: Monitor CSF clx dc Acyclovir change Cefepime 2 gm q 8 Vancomycin with levels 15-20 Ampicilin 2 gm q 4 dc flagyl fu blood clx fu urine clx fu CSF clx dw RN dw son @ b/s
[2018-05-03] MEDS: Oral Hygiene Kit OROPHARYNG SCH ×5 (00:09→23:44)
[2018-05-03] MEDS: Sod Chloride 0.9% Inj 1,000 ML IV.CONT SCH ×5 (00:09→20:59)
[2018-05-03] MEDS: Heparin - SQ 10,000 UNITS/ML Vial SQ SCH ×3 (03:19→18:26)
[2018-05-03] MEDS: Propofol 1000 mg/100 ml Inj 1,000 MG/100 ML BOTTLE IV.CONT PRN ×4 (03:19→19:21)
[2018-05-03] MEDS: Chlorhexidine Gluconate 2% 1 Pack (2 Cloths) TOPICAL SCH (03:19)
--- NOTE | 2018-05-03 06:58 | P.PNCC ---
Subjective Subjective Remarks/Hospital Course: 62 year old male presents with a history of developing altered mentation earlier in the evening tonight. Patient's family reports that the patient has not been well for the last week, intermittently confused, however it became much worse this evening. They report that they had been trying to convince him to come to the emergency department, however he refused. The patient has a history of having a left knee replacement with chronic intermittent swelling and redness associated with that leg. He has been on antibiotic in the past for this. 3 days ago he developed increased swelling and more redness than ever before earlier today. The patient was experiencing intermittent tremors and rigors throughout the day today. The patient's family reports that approximately a week ago he was seen in the [place] emergency department related to back pain mainly on the right side of his mid back area. According to the record, he did have a urinalysis done that showed no evidence of infection, however the record from that evaluation revealed that the patient was on Bactrim for some reason the patient's family is unclear about. Unfortunately, the patient himself is unable to provide any significant history as he arrives with a fever of 104.1. In the emergency department he remained tremulous and extremely confused and was intubated by an ED attending for an airway protection. 05/02: Patient remains intubated and sedated, very low urine output over the past 24 hours, K+ 6.0 today with no EKG changes. 05/03: No significant overnight events, Tmax 99.7F, still intubated and sedated. UO improved with lasix x 1 dose. Objective Vital Signs / I&O: Vital Signs 05/02/18 07:44 05/02/18 08:00 05/02/18 10:00 Temperature 98.1 F Pulse Rate 104 H 104 H 108 H Respiratory Rate 22 19 Blood Pressure 115/57 L Pulse Oximetry 100 05/02/18 11:45 05/02/18 12:00 05/02/18 14:00 Temperature 99.3 F Pulse Rate 108 H 102 H Respiratory Rate 16 15 Blood Pressure 107/53 L Pulse Oximetry 99 05/02/18 16:00 05/02/18 16:14 05/02/18 18:00 Temperature 99.7 F H Pulse Rate 104 H 101 H Respiratory Rate 18 14 Blood Pressure 95/51 L Pulse Oximetry 94 L 05/02/18 20:00 05/02/18 20:59 05/02/18 22:00 Temperature 98.4 F Pulse Rate 99 H 100 H Respiratory Rate 14 14 Blood Pressure 91/54 L Pulse Oximetry 98 97 05/03/18 00:00 05/03/18 02:00 05/03/18 04:00 Temperature 98.6 F 99 F Pulse Rate 103 H 99 H 91 H Respiratory Rate 15 15 Blood Pressure 125/60 109/58 L Pulse Oximetry 94 L 100 05/03/18 04:20 05/03/18 06:00 Temperature Pulse Rate 92 H Respiratory Rate 17 Blood Pressure Pulse Oximetry 100 Intake & Output 05/02/18 05/02/18 05/03/18 06:59 18:59 06:59 Intake Total 4372 / 4372 5055 / 5055 2390 / 2390 Output Total 275 / 275 850 / 850 950 / 950 Balance 4097 / 4097 4205 / 4205 1440 / 1440 Weight 140.5 kg 146 kg Intake: IV 4281 / 4281 4802 / 4802 2200 / 2200 Versed Inj 50 mg In 50 ml @ 2 100 / 100 50 / 50 MG/HR 2 mls/hr IV.CONT TITRATE PRN Rx#:[id number] Diprivan 1000 mg/100 ml Inj 1, 300 / 300 400 / 400 400 / 400 000 mg In 100 ml @ 5 MCG/KG/MIN 3.538 mls/hr IV.CONT TITRATE PRN Rx#:[id number] NS Inj 1,000 ML @ 184 mls/hr IV 1999 / 1999 2000 / 1999 1000 / 1000 .CONT .Q5H27M [facility] Rx#:[id number] Zovirax Inj 1,050 MG In NS Inj 342 / 342 342 / 342 150 ML @ 171 mls/hr IV.SIG Q8H [facility] Rx#:[id number] Ampicillin Inj 2,000 MG In NS 400 / 400 200 / 200 Inj 100 ML @ 400 mls/hr IV.SIG Q4H [facility] Rx#:[id number] Ampicillin Inj 2,000 MG In NS 100 / 100 300 / 300 Inj 100 ML @ 400 mls/hr IV.SIG Q4H [facility] Rx#:[id number] Calcium Chloride Inj 1 GM In NS 110 / 110 Inj 100 ML @ 110 mls/hr IV.SIG ONCE ONE Rx#:[id number] Maxipime Inj 2,000 MG In NS Inj 100 / 100 200 / 200 100 ML @ 200 mls/hr IV.SIG Q8H [facility] Rx#:[id number] NS Inj 1,000 ML @ Wide Open IV. 1000 / 1000 SIG BOLUS ONE Rx#:[id number] Vancomycin Inj 1,750 MG In NS 518 / 518 Inj 500 ML @ 258.75 mls/hr IV. SIG Q24H [facility] Rx#:[id number] Rocephin Inj 2,000 MG In NS Inj 100 / 100 100 ML @ 200 mls/hr IV.SIG Q12H [facility] Rx#:[id number] fentaNYL 10 mcg/mL Premix Drip 250 / 250 250 / 250 250 / 250 2,500 mcg In 250 ml @ 50 MCG/HR 5 mls/hr IV.SIG TITRATE PRN Rx #:[id number] Flagyl 500 MG Inj 100 ML @ 100 100 / 100 200 / 200 100 / 100 mls/hr IV.SIG Q8H [facility] Rx#: [id number] Tube Feeding 91 / 91 253 / 253 190 / 190 Output: Urine Amount (Catheter) 275 / 275 850 / 850 950 / 950 Indwelling Urethral Catheter 275 / 275 850 / 850 950 / 950 Other: Date of Last Bowel Movement 04/30/18 04/30/18 04/30/18 Result Diagrams: 05/03/18 04:55 05/03/18 04:55 Objective Remarks: GEN: Intubated and sedated HEENT: NCAT, ETT and OGT in place NECK: Trachea midline CARDIO: Regular rate and rhythm RESP: Coarse mechanical breath sounds bilaterally ABD/GI: Soft, non-distended EXT/MSK: Trace to 1+ peripheral edema, warm and well-perfused SKIN: No erythema or rashes noted, well-healed surgical incisional scar to left knee NEURO: GCS 70T ([id number]), RASS -1 PSYCH: Unable to assess Assessment and Plan - Assessment and Plan Plan: 62yM presenting with altered mental status, profound hyperthermia, sepsis/ SIRS , respiratory failure requiring mechanical ventilation NEURO: -Goal RASS 0 to -1, continue fentanyl/ propofol -CT and MRI brain/ C/T/L spine showed no acute abnormalities -LP shows 2100 WBCs (mostly neutrophils) and 2K RBCs, opening pressure 25/ closing pressure 19 -Continue antibiotics as detailed below -Continue home nortriptyline- patient does not have clonus or rigidity on exam, low suspicion for NMS/ serotonin syndrome CARDIO: -Not requiring pressors -Echo from 05/02 showed EF 60%, PAP 45 mmHg, mild concentric LVH and mildly dilated LA RESP: -Continue mechanical ventilation, start spontaneous breathing trials today -Vent bundle -Nebs -CXR yesterday showed minimal pulmonary vascular congestion, no other significant changes from admission F/E/N, RENAL: -Follow urine output, will give another dose of lasix today given pulmonary congestion -Creat 2.50 up from 2.3, potassium normal -RENO likely due to sepsis, avoid nephrotoxic drugs ID: -No clear source seen on imaging, no joint effusion on MRI of left knee, follow up LP cultures/ viral studies, currently treating for presumed bacterial meningitis -Blood cultures show no growth at 2 days -Influenza and MRSA swab negative -ID recommendations appreciated -Continue ampicillin, vanco, cefepime, acyclovir d/cd yesterday PROPHY: -SCDs, SQH -Pepcid Counseling/ Coordination of Care: This patient is critically ill with impairment of one or more vital organ systems with a high probability of imminent or life-threatening deterioration. High-complexity medical decision making was required to support vital organ function and/ or prevent deterioration in the patient's condition. Total critical care time spent is 58 minutes giving full attention to this patient. This includes examining the patient, gathering history from someone other than the patient (i.e. chart review), discussing the patient's care with other providers, managing the patient's blood pressure and ventilator settings, ordering and interpreting radiologic studies, ordering and interpreting laboratory values, managing the patient's sedation requirements, treatment of hyperkalemia, and documentation. Amount of time is separate from teaching, counseling the patient and/or family, and exclusive of procedures. To help prompt me to consider important information that might be impacting today's encounter and assessment, information from prior notes written by myself or my colleagues may have been "brought forward" into today's note. My signature on this note, however, is an attestation that I personally performed the exam, history, and/or decision-making noted today, and, unless otherwise indicated, the interactions with patient, family, and staff as well as the review of records all occurred today. I also attest that the listed assessment and stated plan reflect my best clinical judgment today based on the combination of historical information, prior notes, and today's exam/ interactions. Code Status: Full
[2018-05-03 07:06] LABS: Baso % (Auto) 0.5 % (0.0-2.0); Eos # (Auto) 0.5 th/mm3 (0.0-0.4); Eos % (Auto) 5.1 % (0.0-4.0); Hematocrit 30.8 % (39.0-51.0); Lymph # (Auto) 0.6 th/mm3 (1.0-4.8); Lymph % (Auto) 6.1 % (9.0-44.0); Mean Corpuscular HGB Conc 32.6 % (32.0-36.0); Mean Corpuscular Hemoglobin 29.9 pg (27.0-34.0); Mean Corpuscular Volume 91.8 fL (80.0-100.0); Mean Platelet Volume 9.7 fL (7.0-11.0); Mono # (Auto) 0.5 th/mm3 (0.0-0.9); Mono % (Auto) 5.2 % (0.0-8.0); Neut # (Auto) 8.1 th/mm3 (1.8-7.7); Neut % (Auto) 83.1 % (16.0-70.0); Platelet Count 155 th/mm3 (150-450); Red Blood Count 3.35 mil/mm3 (4.50-5.90); Red Cell Distribution Width 18.1 % (11.6-17.2); White Blood Count 9.8 th/mm3 (4.0-11.0)
[2018-05-03 07:48] LABS: Albumin 1.8 g/dL (3.4-5.0); Calcium 7.2 mg/dL (8.5-10.1); Carbon Dioxide 20.7 meq/L (21.0-32.0); Magnesium 2.1 mg/dL (1.5-2.5); Potassium 4.9 meq/L (3.5-5.1); Total Protein 5.6 g/dL (6.4-8.2); Vancomycin,Random 17.3 Comment
[2018-05-03] MEDS: Chlorhexidine 0.12% Oral Kit 15 ML UDC OROPHARYNG SCH ×2 (08:24→19:21)
[2018-05-03] MEDS: Famotidine PF Inj 20 MG/2 ML Vial IV.PUSH SCH ×2 (08:24→20:12)
[2018-05-03] MEDS: Senna/Docusate Sodium 8.6/50 MG Tablet PO SCH ×2 (08:24→20:12)
[2018-05-03] MEDS: Famotidine 20 MG Tablet PO SCH ×2 (08:24→20:12)
[2018-05-03] MEDS: Nortriptyline 25 MG Capsule PO SCH (08:24)
[2018-05-03] MEDS ORDERED: Calcium Gluconate Inj 1 GM in Dextrose 5% in Water Inj 100 ML IV.SIG ONE ×2 (09:00)
[2018-05-03] MEDS ORDERED: Vancomycin Inj 2,500 MG in Sodium Chlor 0.9% Inj 500 ML IV.SIG ONE (12:00)
[2018-05-03] MEDS: Midazolam 50 MG/50 ML Inj 50 MG/50 ML BAG IV.CONT PRN (15:07)
--- NOTE | 2018-05-03 17:26 | P.PNID ---
Subjective Remarks: pt is stable afebrile NGTD on any cultures Antibiotics: vanco r ampicillin Rocephine Allergies/Adverse Reactions: Allergies No Known Allergies Allergy (Verified 04/25/18 16:10) Objective Vital Signs 05/02/18 18:00 05/02/18 20:00 05/02/18 20:59 Temperature 98.4 F Pulse Rate 101 H 99 H Respiratory Rate 14 14 Blood Pressure 91/54 L Pulse Oximetry 98 97 05/02/18 22:00 05/03/18 00:00 05/03/18 02:00 Temperature 98.6 F Pulse Rate 100 H 103 H 99 H Respiratory Rate 15 Blood Pressure 125/60 Pulse Oximetry 94 L 05/03/18 04:00 05/03/18 04:20 05/03/18 06:00 Temperature 99 F Pulse Rate 91 H 92 H Respiratory Rate 15 17 Blood Pressure 109/58 L Pulse Oximetry 100 100 05/03/18 08:00 05/03/18 10:00 05/03/18 11:55 Temperature 98.1 F Pulse Rate 96 H 95 H Respiratory Rate 20 18 Blood Pressure 133/62 Pulse Oximetry 92 L 99 05/03/18 12:00 05/03/18 14:00 05/03/18 15:20 Temperature 98.8 F Pulse Rate 96 H 99 H Respiratory Rate 19 14 Blood Pressure 121/59 L Pulse Oximetry 99 05/03/18 16:00 Temperature 99.2 F Pulse Rate 94 H Respiratory Rate 14 Blood Pressure 109/54 L Pulse Oximetry Intake & Output 05/02/18 05/03/18 05/03/18 18:59 06:59 18:59 Intake Total 5055 / 5055 3390 / 3390 1085 / 1085 Output Total 850 / 850 950 / 950 Balance 4205 / 4205 2440 / 2440 1085 / 1085 Weight 146 kg Intake: IV 4802 / 4802 3200 / 3200 1085 / 1085 Versed Inj 50 mg In 50 ml @ 2 50 / 50 50 / 50 MG/HR 2 mls/hr IV.CONT TITRATE PRN Rx#:[id number] Diprivan 1000 mg/100 ml Inj 1, 400 / 400 400 / 400 000 mg In 100 ml @ 5 MCG/KG/MIN 3.538 mls/hr IV.CONT TITRATE PRN Rx#:[id number] NS Inj 1,000 ML @ 84 mls/hr IV. 1999 CONT .[id number] [facility] Rx#:[id number] Zovirax Inj 1,050 MG In NS Inj 342 / 342 150 ML @ 171 mls/hr IV.SIG Q8H [facility] Rx#:[id number] Ampicillin Inj 2,000 MG In NS 200 / 200 Inj 100 ML @ 400 mls/hr IV.SIG Q4H [facility] Rx#:[id number] Ampicillin Inj 2,000 MG In NS 100 / 100 300 / 300 200 / 200 Inj 100 ML @ 400 mls/hr IV.SIG Q4H [facility] Rx#:[id number] Calcium Chloride Inj 1 GM In NS 110 / 110 Inj 100 ML @ 110 mls/hr IV.SIG ONCE ONE Rx#:[id number] Calcium Gluconate Inj 1 GM In 110 / 110 D5W Inj 100 ML @ 110 mls/hr IV. SIG ONCE ONE Rx#:[id number] Maxipime Inj 2,000 MG In NS Inj 200 / 200 100 ML @ 200 mls/hr IV.SIG Q8H [facility] Rx#:[id number] NS Inj 1,000 ML @ Wide Open IV. 1000 / 1000 SIG BOLUS ONE Rx#:[id number] Vancomycin Inj 2,500 MG In NS 525 / 525 Inj 500 ML @ 258.75 mls/hr IV. SIG ONCE ONE Rx#:[id number] Rocephin Inj 2,000 MG In NS Inj 100 / 100 100 / 100 100 ML @ 200 mls/hr IV.SIG Q12H [facility] Rx#:[id number] fentaNYL 10 mcg/mL Premix Drip 250 / 250 250 / 250 2,500 mcg In 250 ml @ 50 MCG/HR 5 mls/hr IV.SIG TITRATE PRN Rx #:[id number] Flagyl 500 MG Inj 100 ML @ 100 200 / 200 100 / 100 100 / 100 mls/hr IV.SIG Q8H [facility] Rx#: [id number] Tube Feeding 253 / 253 190 / 190 Output: Urine Amount (Catheter) 850 / 850 950 / 950 Indwelling Urethral Catheter 850 / 850 950 / 950 Other: Date of Last Bowel Movement 04/30/18 04/30/18 04/30/18 05/01/18 04:10 Lumbar Puncture Gram Stain - Final 05/01/18 04:10 Lumbar Puncture CSF Culture - Preliminary No growth in 48 hours 04/30/18 23:09 Blood - Peripheral Aerobic Blood Culture - Preliminary No growth in 3 days 04/30/18 23:09 Blood - Peripheral Anaerobic Blood Culture - Preliminary No growth in 3 days 04/30/18 23:00 Blood - Peripheral Aerobic Blood Culture - Preliminary No growth in 3 days 04/30/18 23:00 Blood - Peripheral Anaerobic Blood Culture - Preliminary No growth in 3 days 04/30/18 23:40 Catheterized Urine Urine Culture - Final No growth in 48 hours 05/01/18 00:00 Nasal Wash Influenza Types A,B Antigen - Final Negative for FLU A and B antigen Infection due to influenza A or B cannot be ruled out since the antigen present in the sample may be below the detection limit of the test. Lab - Hematology Results 05/02/18 05/03/18 03:53 04:55 WBC 16.2 H 9.8 RBC 3.81 L 3.35 L Hgb 10.8 L 10.0 L Hct 35.8 L 30.8 L MCV 94.1 D 91.8 MCH 28.4 29.9 MCHC 30.2 L 32.6 RDW 18.8 H 18.1 H Plt Count 191 D 155 MPV 9.1 9.7 Prelim Diff (Auto) Manual diff required Neut % (Auto) 83.1 H Lymph % (Auto) 6.1 L Lyon % (Auto) 5.2 Eos % (Auto) 5.1 H Baso % (Auto) 0.5 Neut # (Auto) 8.1 H Lymph # (Auto) 0.6 L Lyon # (Auto) 0.5 Eos # (Auto) 0.5 H Baso # (Auto) 0.0 WBC Differential Manual diff final . Seg Neuts % (Manual) 70 Band Neuts % (Manual) 25 H Lymphocytes % (Manual) 3 L Eosinophils % (Manual) 2 Abs Neuts (Manual) 15.4 H Differential Comment . Auto diff final Platelet Estimate Normal Platelet Morphology Normal Ovalocytes 1+ H Acanthocytes (Spur) Occ H Lab - Chemistry Results 05/01/18 05/02/18 05/02/18 16:00 03:53 07:20 Sodium 136 138 Potassium 6.0 H D 5.4 H Chloride 111 H 110 H Carbon Dioxide 16.3 L 22.0 Anion Gap 9 6 BUN 36 H 40 H Creatinine 2.21 H 2.27 H Estimated GFR 37 L 36 L Random Glucose 94 109 H Calcium 7.2 L* D 7.0 L* Prot Corrected Calcium 7.7 L 7.5 L Phosphorus 4.6 Magnesium 1.8 Total Bilirubin 0.3 AST 46 H ALT 14 Alkaline Phosphatase 78 Troponin I 0.36 H 0.21 H Total Protein 6.1 L D 6.1 L Albumin 2.1 L D 05/02/18 05/02/18 05/03/18 07:20 16:09 04:55 Sodium 141 144 Potassium 5.1 4.9 Chloride 112 H 115 H Carbon Dioxide 20.1 L 20.7 L Anion Gap 9 8 BUN 43 H 44 H Creatinine 2.33 H 2.50 H Estimated GFR 34 L 32 L Random Glucose 104 91 Calcium 7.1 L* 7.2 L* Prot Corrected Calcium 7.8 L 8.0 L Phosphorus Magnesium 2.1 Total Bilirubin 0.2 AST 34 ALT 14 Alkaline Phosphatase 78 Troponin I Cancelled Total Protein 5.8 L 5.6 L Albumin 1.8 L Imaging: ITS Impressions Venous Doppler Study 04/30/18 22:58 CONCLUSION: 1. Negative exam with no evidence of deep venous thrombosis. Cervical Spine MRI 05/01/18 00:00 CONCLUSION: 1. The bony structures appear intact. The disc appears grossly intact with normal signal. No abnormal areas of enhancement are seen in the cervical spine. 2. Minimal disc bulge at the C6-C7 level. Head CT 05/01/18 00:00 CONCLUSION: 1. No acute hemorrhage or mass effect.. 2. Moderate size retention cyst in left maxillary sinus. There is mucosal thickening in the ethmoidal air cells. . Head MRI 05/01/18 00:00 CONCLUSION: 1. No acute intracranial abnormality is seen. 2. Minimal suspected small vessels ischemic change in the white matter. 3. Sinus disease. Knee MRI 05/01/18 00:00 CONCLUSION: 1. Limited MRI examination secondary to the knee prosthesis. An area of signal abnormality within the bony structures is not clearly identified. Susceptibility artifact does limit the evaluation. 2. No joint effusion. 3. No soft tissue fluid collections are seen. Lumbar Spine MRI 05/01/18 00:00 CONCLUSION: 1. The bones and discs demonstrate normal signal. 2. Minimal disc bulge at the L4-L5 level. 3. Lower lumbar facet hypertrophy. Thoracic Spine MRI 05/01/18 00:00 CONCLUSION: Negative thoracic spine MRI examination. Lumbar Spine CT 05/01/18 00:05 CONCLUSION: 1. No underlying bony abnormality. There is no evidence to suggest osteomyelitis. 2. Mild to moderate central canal stenosis at L2-3 secondary to disc bulge and degenerative change involving the facets. 3. Milder disc bulges at the L3-4 and L4-5 levels with mild flattening the anterior thecal sac and no focal protrusion. 4. Degenerative changes involving the lower facet joints. Thoracic Spine CT 05/01/18 00:05 CONCLUSION: 1. Mild chronic appearing wedging of several of the midthoracic vertebral bodies. 2. No destructive change or sclerosis. Abdomen/Pelvis CT 05/01/18 00:12 CONCLUSION: 1. Unremarkable bowel gas pattern with no evidence of obstruction. 2. Unremarkable appearing kidneys. 3. Nasogastric tube in place with fluid in the distal esophagus. Chest CT 05/01/18 00:20 CONCLUSION: 1. Tiny bilateral pleural effusions. 2. Nasogastric tube in place with fluid surrounding the tube in the esophagus. Is nonspecific. 3. Apparent atelectasis in the dependent portions of lung bases. 4. The study is degraded by motion streak artifact. Chest X-Ray 05/02/18 00:00 CONCLUSION: 1. Minimal central pulmonary vascular congestion. 2. Minimal bibasilar atelectasis. 3. Cardiomegaly. 4. Endotracheal tube and nasogastric tube in good positions. Physical Exam: GENERAL: NAD sedated intubated SKIN: Warm and dry. HEAD: Atraumatic. Normocephalic. EYES: Pupils equal and round. No scleral icterus. No injection or drainage. ENT: No nasal bleeding or discharge. Mucous membranes pink and moist. NECK: Trachea midline. No JVD. CARDIOVASCULAR: Regular rate and rhythm. RESPIRATORY: No accessory muscle use. Clear to auscultation. Breath sounds equal bilaterally. GASTROINTESTINAL: Abdomen soft, non-tender, nondistended. Hepatic and splenic margins not palpable. MUSCULOSKELETAL: Extremities without clubbing, cyanosis, + 2 edema, more prominent on LLE. No obvious deformities. NEUROLOGICAL: sedated and unresponsive PSYCHIATRIC: unable to assess Assessment and Plan - Plan Suspected acute bacterial meningitis - other ethiologies herpetic meningitis, fungal meningitis sepsis ? L knee prosthetic joint infection dw Dr Wagner: in Sep pt took 2 weeks of abx (doxy, bactrim) MR knee w/o fluid collections Acute VDRF Critically ill, stable PLAN: Monitor CSF clx and patricia antigens cont ceftriaxone Vancomycin with levels 15-20 Ampicilin 2 gm q 4 dc flagyl fu blood clx fu urine clx fu CSF studies dw RN dw mother @ b/s
[2018-05-04] MEDS: Heparin - SQ 10,000 UNITS/ML Vial SQ SCH ×3 (02:26→18:05)
[2018-05-04] MEDS ORDERED: Pharmacy Ordered Lab Info OTHER ONE (02:45)
[2018-05-04] MEDS: Chlorhexidine Gluconate 2% 1 Pack (2 Cloths) TOPICAL SCH (04:15)
[2018-05-04] MEDS: Oral Hygiene Kit OROPHARYNG SCH ×3 (04:15→17:15)
[2018-05-04] MEDS: Sod Chloride 0.9% Inj 1,000 ML IV.CONT SCH ×5 (04:15→21:02)
[2018-05-04 05:00] LABS: Baso # (Auto) 0.1 th/mm3 (0.0-0.2); Baso % (Auto) 0.5 % (0.0-2.0); Eos # (Auto) 0.5 th/mm3 (0.0-0.4); Eos % (Auto) 3.9 % (0.0-4.0); Hematocrit 29.3 % (39.0-51.0); Hemoglobin 9.6 gm/dL (13.0-17.0); Lymph # (Auto) 0.7 th/mm3 (1.0-4.8); Lymph % (Auto) 5.3 % (9.0-44.0); Mean Corpuscular HGB Conc 32.7 % (32.0-36.0); Mean Corpuscular Hemoglobin 29.3 pg (27.0-34.0); Mean Corpuscular Volume 89.7 fL (80.0-100.0); Mean Platelet Volume 9.6 fL (7.0-11.0); Mono % (Auto) 7.5 % (0.0-8.0); Neut # (Auto) 10.7 th/mm3 (1.8-7.7); Neut % (Auto) 82.8 % (16.0-70.0); Platelet Count 180 th/mm3 (150-450); Red Blood Count 3.27 mil/mm3 (4.50-5.90); Red Cell Distribution Width 18.3 % (11.6-17.2); White Blood Count 12.9 th/mm3 (4.0-11.0)
[2018-05-04 05:26] LABS: Alanine Aminotransferase 14 U/L (12-78); Albumin 1.7 g/dL (3.4-5.0); Anion Gap 9 meq/L (5-15); Aspartate Aminotransferase 30 U/L (15-37); Blood Urea Nitrogen 39 mg/dL (7-18); Calcium 7.9 mg/dL (8.5-10.1); Carbon Dioxide 23.3 meq/L (21.0-32.0); Chloride 116 meq/L (98-107); Glomerular Filtration Rate 47 mL/min (>89); Glucose,Random 105 mg/dL (74-106); Magnesium 2.3 mg/dL (1.5-2.5); Potassium 4.7 meq/L (3.5-5.1); Sodium 148 meq/L (136-145)
[2018-05-04 05:29] LABS: Alkaline Phosphatase 99 U/L (45-117); Vancomycin,Random 22.8 Comment
--- NOTE | 2018-05-04 06:34 | P.PNCC ---
Subjective Subjective Remarks/Hospital Course: 62 year old male presents with a history of developing altered mentation earlier in the evening tonight. Patient's family reports that the patient has not been well for the last week, intermittently confused, however it became much worse this evening. They report that they had been trying to convince him to come to the emergency department, however he refused. The patient has a history of having a left knee replacement with chronic intermittent swelling and redness associated with that leg. He has been on antibiotic in the past for this. 3 days ago he developed increased swelling and more redness than ever before earlier today. The patient was experiencing intermittent tremors and rigors throughout the day today. The patient's family reports that approximately a week ago he was seen in the [place] emergency department related to back pain mainly on the right side of his mid back area. According to the record, he did have a urinalysis done that showed no evidence of infection, however the record from that evaluation revealed that the patient was on Bactrim for some reason the patient's family is unclear about. Unfortunately, the patient himself is unable to provide any significant history as he arrives with a fever of 104.1. In the emergency department he remained tremulous and extremely confused and was intubated by an ED attending for an airway protection. 05/02: Patient remains intubated and sedated, very low urine output over the past 24 hours, K+ 6.0 today with no EKG changes. 05/03: No significant overnight events, Tmax 99.7F, still intubated and sedated. UO improved with lasix x 1 dose. 05/04: Objective Vital Signs / I&O: Vital Signs 05/03/18 08:00 05/03/18 10:00 05/03/18 11:55 Temperature 98.1 F Pulse Rate 96 H 95 H Respiratory Rate 20 18 Blood Pressure 133/62 Pulse Oximetry 92 L 99 05/03/18 12:00 05/03/18 14:00 05/03/18 15:20 Temperature 98.8 F Pulse Rate 96 H 99 H Respiratory Rate 19 14 Blood Pressure 121/59 L Pulse Oximetry 99 05/03/18 16:00 05/03/18 18:00 05/03/18 20:00 Temperature 99.2 F 99.2 F Pulse Rate 94 H 91 H 90 Respiratory Rate 14 14 Blood Pressure 109/54 L 129/61 Pulse Oximetry 98 05/03/18 21:05 05/03/18 22:00 05/04/18 00:00 Temperature 99.1 F Pulse Rate 90 91 H Respiratory Rate 14 16 Blood Pressure 114/59 L Pulse Oximetry 100 98 05/04/18 02:00 05/04/18 03:22 05/04/18 04:00 Temperature 99 F Pulse Rate 92 H 90 Respiratory Rate 14 14 Blood Pressure 122/62 Pulse Oximetry 100 100 05/04/18 06:00 Temperature Pulse Rate 93 H Respiratory Rate Blood Pressure Pulse Oximetry Intake & Output 05/03/18 05/03/18 05/04/18 06:59 18:59 06:59 Intake Total 3390 / 3390 2994 / 2994 613 / 613 Output Total 950 / 950 3950 / 3950 1150 / 1150 Balance 2440 / 2440 -956 / -956 -537 / -537 Weight 146 kg 145.5 kg Intake: IV 3200 / 3200 2735 / 2735 400 / 400 Versed Inj 50 mg In 50 ml @ 2 50 / 50 50 / 50 MG/HR 2 mls/hr IV.CONT TITRATE PRN Rx#:[id number] Diprivan 1000 mg/100 ml Inj 1, 400 / 400 200 / 200 000 mg In 100 ml @ 5 MCG/KG/MIN 3.538 mls/hr IV.CONT TITRATE PRN Rx#:[id number] NS Inj 1,000 ML @ 84 mls/hr IV. 1999 / 1999 1000 / 1000 CONT .[id number] [facility] Rx#:[id number] Ampicillin Inj 2,000 MG In NS 300 / 300 300 / 300 300 / 300 Inj 100 ML @ 400 mls/hr IV.SIG Q4H [facility] Rx#:[id number] Calcium Gluconate Inj 1 GM In 110 / 110 D5W Inj 100 ML @ 110 mls/hr IV. SIG ONCE ONE Rx#:[id number] Vancomycin Inj 2,500 MG In NS 525 / 525 Inj 500 ML @ 258.75 mls/hr IV. SIG ONCE ONE Rx#:[id number] Rocephin Inj 2,000 MG In NS Inj 100 / 100 100 / 100 100 / 100 100 ML @ 200 mls/hr IV.SIG Q12H [facility] Rx#:[id number] fentaNYL 10 mcg/mL Premix Drip 250 / 250 250 / 250 2,500 mcg In 250 ml @ 50 MCG/HR 5 mls/hr IV.SIG TITRATE PRN Rx #:[id number] Flagyl 500 MG Inj 100 ML @ 100 100 / 100 200 / 200 mls/hr IV.SIG Q8H [facility] Rx#: [id number] Tube Feeding 190 / 190 259 / 259 213 / 213 Output: Urine 1150 / 1150 Urine Amount (Catheter) 950 / 950 3950 / 3950 Indwelling Urethral Catheter 950 / 950 3950 / 3950 Other: Date of Last Bowel Movement 04/30/18 04/30/18 04/30/18 # Bowel Movements 0 Result Diagrams: 05/04/18 03:46 05/04/18 03:46 Objective Remarks: GEN: Intubated and sedated HEENT: NCAT, ETT and OGT in place NECK: Trachea midline CARDIO: Regular rate and rhythm RESP: Breath sounds present bilaterally, less coarse than yesterday ABD/GI: Soft, non-distended, non-tender EXT/MSK: Trace to 1+ peripheral edema, warm and well-perfused SKIN: No erythema or rashes noted, well-healed surgical incisional scar to left knee, no erythema NEURO: GCS 7T ([id number]), RASS 0 to -1 PSYCH: Unable to assess Assessment and Plan - Assessment and Plan Plan: 62yM presenting with altered mental status, profound hyperthermia, sepsis/ SIRS , respiratory failure requiring mechanical ventilation NEURO: -Sedation vacation today, start weaning vent as tolerated -CT and MRI brain/ C/T/L spine showed no acute abnormalities -LP shows 2100 WBCs (mostly neutrophils) and 2K RBCs, opening pressure 25/ closing pressure 19 -Continue antibiotics as detailed below -Continue home nortriptyline- patient does not have clonus or rigidity on exam, low suspicion for NMS/ serotonin syndrome CARDIO: -Not requiring pressors -Echo from 05/02 showed EF 60%, PAP 45 mmHg, mild concentric LVH and mildly dilated LA RESP: -Spontaneous breathing trial/ wean vent as tolerated -Vent bundle -Nebs -CXR 05/02 showed minimal pulmonary vascular congestion F/E/N, RENAL: -Urine output excellent overnight, give another dose of lasix today -Creat trending down to 1.78, potassium normal -R[place] likely due to sepsis, avoid nephrotoxic drugs ID: -Blood cultures show no growth at 3 days -CSF and urine cultures show no growth at 48 hrs -Influenza and MRSA swab negative -ID recommendations appreciated -Continue ruby guillen PROPHY: -SCDs, SQH -Pepcid Counseling/ Coordination of Care: This patient is critically ill with impairment of one or more vital organ systems with a high probability of imminent or life-threatening deterioration. High-complexity medical decision making was required to support vital organ function and/ or prevent deterioration in the patient's condition. Total critical care time spent is 50 minutes giving full attention to this patient. This includes examining the patient, gathering history from someone other than the patient (i.e. chart review), discussing the patient's care with other providers, managing the patient's blood pressure and ventilator settings, ordering and interpreting radiologic studies, ordering and interpreting laboratory values, managing the patient's sedation requirements, treatment of hyperkalemia, and documentation. Amount of time is separate from teaching, counseling the patient and/or family, and exclusive of procedures. To help prompt me to consider important information that might be impacting today's encounter and assessment, information from prior notes written by myself or my colleagues may have been "brought forward" into today's note. My signature on this note, however, is an attestation that I personally performed the exam, history, and/or decision-making noted today, and, unless otherwise indicated, the interactions with patient, family, and staff as well as the review of records all occurred today. I also attest that the listed assessment and stated plan reflect my best clinical judgment today based on the combination of historical information, prior notes, and today's exam/ interactions. Code Status: Full
[2018-05-04] MEDS: fentaNYL 10 mcg/mL Premix Drip 2,500 MCG/250 ML BAG IV.SIG PRN (07:00)
[2018-05-04] MEDS ORDERED: Midazolam 100 MG/100 ML Inj 100 MG/100 ML BAG IV.CONT PRN (07:45)
[2018-05-04] MEDS: Senna/Docusate Sodium 8.6/50 MG Tablet PO SCH ×2 (08:26→21:01)
[2018-05-04] MEDS: Famotidine PF Inj 20 MG/2 ML Vial IV.PUSH SCH (08:26)
[2018-05-04] MEDS: Propofol 1000 mg/100 ml Inj 1,000 MG/100 ML BOTTLE IV.CONT PRN (08:26)
[2018-05-04] MEDS: Famotidine 20 MG Tablet PO SCH ×2 (08:26→21:01)
[2018-05-04] MEDS: Chlorhexidine 0.12% Oral Kit 15 ML UDC OROPHARYNG SCH ×2 (08:27→19:53)
[2018-05-04 08:30] LABS: Eosinophils 4 % (0-4); Lymphocytes 4 % (9-44); Monocytes 5 % (0-8); Platelet Estimate Normal (Normal); Platelet Morphology Normal (Normal)
[2018-05-04] MEDS: Nortriptyline 25 MG Capsule PO SCH (08:30)
[2018-05-04] MEDS: Vancomycin Inj 2,500 MG in Sodium Chlor 0.9% Inj 500 ML IV.SIG SCH (13:12)
[2018-05-04] MEDS ORDERED: Famotidine PF Inj 20 MG/2 ML Vial IV.PUSH PRN (21:00)
[2018-05-05] MEDS: Oral Hygiene Kit OROPHARYNG SCH ×4 (01:09→15:13)
[2018-05-05] MEDS: Heparin - SQ 10,000 UNITS/ML Vial SQ SCH ×3 (02:43→18:24)
[2018-05-05 04:04] LABS: Baso % (Auto) 0.2 % (0.0-2.0); Eos # (Auto) 0.6 th/mm3 (0.0-0.4); Eos % (Auto) 4.1 % (0.0-4.0); Hemoglobin 9.5 gm/dL (13.0-17.0); Lymph # (Auto) 0.8 th/mm3 (1.0-4.8); Lymph % (Auto) 5.6 % (9.0-44.0); Mean Corpuscular HGB Conc 32.7 % (32.0-36.0); Mean Corpuscular Hemoglobin 29.3 pg (27.0-34.0); Mean Corpuscular Volume 89.6 fL (80.0-100.0); Mono # (Auto) 1.3 th/mm3 (0.0-0.9); Mono % (Auto) 9.5 % (0.0-8.0); Neut % (Auto) 80.6 % (16.0-70.0); Platelet Count 191 th/mm3 (150-450); Red Blood Count 3.23 mil/mm3 (4.50-5.90); Red Cell Distribution Width 18.6 % (11.6-17.2); White Blood Count 13.7 th/mm3 (4.0-11.0)
[2018-05-05 04:25] LABS: Albumin 1.7 g/dL (3.4-5.0); Anion Gap 8 meq/L (5-15); Aspartate Aminotransferase 30 U/L (15-37); Blood Urea Nitrogen 32 mg/dL (7-18); Carbon Dioxide 24.6 meq/L (21.0-32.0); Chloride 118 meq/L (98-107); Glomerular Filtration Rate 78 mL/min (>89); Glucose,Random 113 mg/dL (74-106); Magnesium 2.5 mg/dL (1.5-2.5); Potassium 4.1 meq/L (3.5-5.1); Sodium 151 meq/L (136-145)
[2018-05-05 04:29] LABS: Alanine Aminotransferase 13 U/L (12-78); Alkaline Phosphatase 127 U/L (45-117); Total Protein 6.1 g/dL (6.4-8.2)
[2018-05-05] MEDS: fentaNYL 10 mcg/mL Premix Drip 2,500 MCG/250 ML BAG IV.SIG PRN (04:45)
[2018-05-05] MEDS: Chlorhexidine Gluconate 2% 1 Pack (2 Cloths) TOPICAL SCH (04:45)
[2018-05-05] MEDS: Propofol 1000 mg/100 ml Inj 1,000 MG/100 ML BOTTLE IV.CONT PRN (06:38)
--- NOTE | 2018-05-05 06:47 | P.PNCC ---
Subjective Subjective Remarks/Hospital Course: 62 year old male presents with a history of developing altered mentation earlier in the evening tonight. Patient's family reports that the patient has not been well for the last week, intermittently confused, however it became much worse this evening. They report that they had been trying to convince him to come to the emergency department, however he refused. The patient has a history of having a left knee replacement with chronic intermittent swelling and redness associated with that leg. He has been on antibiotic in the past for this. 3 days ago he developed increased swelling and more redness than ever before earlier today. The patient was experiencing intermittent tremors and rigors throughout the day today. The patient's family reports that approximately a week ago he was seen in the [place] emergency department related to back pain mainly on the right side of his mid back area. According to the record, he did have a urinalysis done that showed no evidence of infection, however the record from that evaluation revealed that the patient was on Bactrim for some reason the patient's family is unclear about. Unfortunately, the patient himself is unable to provide any significant history as he arrives with a fever of 104.1. In the emergency department he remained tremulous and extremely confused and was intubated by an ED attending for an airway protection. 05/02: Patient remains intubated and sedated, very low urine output over the past 24 hours, K+ 6.0 today with no EKG changes. 05/03: No significant overnight events, Tmax 99.7F, still intubated and sedated. UO improved with lasix x 1 dose. 05/04: Creatinine continues to improve, cultures negative, will start SBT today. 05/05: Wean sedation and vent today. Add free H2O flushes. Afebrile, all cultures NGTD. Objective Vital Signs / I&O: Vital Signs 05/04/18 07:00 05/04/18 07:15 05/04/18 07:19 Temperature Pulse Rate 89 84 Respiratory Rate 15 16 17 Blood Pressure 126/64 127/70 Pulse Oximetry 99 97 96 05/04/18 07:30 05/04/18 07:45 05/04/18 08:00 Temperature 98.8 F Pulse Rate 84 87 89 Respiratory Rate 18 14 15 Blood Pressure 126/69 129/71 128/70 Pulse Oximetry 100 99 98 05/04/18 08:15 05/04/18 08:30 05/04/18 08:45 Temperature Pulse Rate 87 88 89 Respiratory Rate 15 14 14 Blood Pressure 134/68 130/64 129/66 Pulse Oximetry 97 99 98 05/04/18 09:00 05/04/18 09:15 05/04/18 09:30 Temperature Pulse Rate 90 89 90 Respiratory Rate 14 14 14 Blood Pressure 133/68 129/66 131/66 Pulse Oximetry 99 99 99 05/04/18 09:45 05/04/18 10:00 05/04/18 10:15 Temperature Pulse Rate 87 87 87 Respiratory Rate 14 14 14 Blood Pressure 130/67 131/69 127/68 Pulse Oximetry 98 94 L 97 05/04/18 10:30 05/04/18 10:45 05/04/18 11:00 Temperature Pulse Rate 90 89 91 H Respiratory Rate 14 15 20 Blood Pressure 134/69 133/70 134/77 Pulse Oximetry 94 L 99 99 05/04/18 11:10 05/04/18 11:15 05/04/18 11:30 Temperature Pulse Rate 90 87 Respiratory Rate 22 23 20 Blood Pressure 132/68 135/70 Pulse Oximetry 96 97 98 05/04/18 11:45 05/04/18 12:00 05/04/18 12:15 Temperature 98.6 F Pulse Rate 89 90 89 Respiratory Rate 18 18 18 Blood Pressure 136/70 131/68 136/76 Pulse Oximetry 99 99 96 05/04/18 12:30 05/04/18 12:45 05/04/18 13:00 Temperature Pulse Rate 90 92 H 91 H Respiratory Rate 17 19 13 Blood Pressure 129/68 129/65 122/63 Pulse Oximetry 93 L 96 99 05/04/18 13:15 05/04/18 13:30 05/04/18 13:45 Temperature Pulse Rate 88 88 88 Respiratory Rate 19 16 18 Blood Pressure 126/64 121/63 123/61 Pulse Oximetry 97 100 99 05/04/18 14:00 05/04/18 14:15 05/04/18 14:30 Temperature Pulse Rate 87 88 88 Respiratory Rate 26 H 18 20 Blood Pressure 121/64 127/75 131/73 Pulse Oximetry 100 94 L 95 05/04/18 14:45 05/04/18 15:00 05/04/18 15:15 Temperature Pulse Rate 88 87 91 H Respiratory Rate 19 22 21 Blood Pressure 130/71 129/71 128/70 Pulse Oximetry 94 L 93 L 97 05/04/18 15:30 05/04/18 15:45 05/04/18 16:00 Temperature Pulse Rate 90 90 90 Respiratory Rate 21 22 26 H Blood Pressure 129/69 128/70 131/74 Pulse Oximetry 97 98 98 05/04/18 16:15 05/04/18 16:30 05/04/18 16:44 Temperature 98.6 F Pulse Rate 90 91 H 91 H Respiratory Rate 23 21 20 Blood Pressure 133/74 126/68 Pulse Oximetry 94 L 98 99 05/04/18 16:45 05/04/18 18:00 05/04/18 19:20 Temperature Pulse Rate 92 H Respiratory Rate 17 Blood Pressure 131/69 Pulse Oximetry 98 05/04/18 20:00 05/04/18 22:00 05/04/18 22:50 Temperature 98.7 F Pulse Rate 92 H 90 Respiratory Rate 18 17 Blood Pressure 152/78 H Pulse Oximetry 98 95 05/05/18 00:00 05/05/18 01:20 05/05/18 02:00 Temperature 98.5 F Pulse Rate 92 H 91 H Respiratory Rate 18 19 Blood Pressure 166/82 H Pulse Oximetry 99 98 05/05/18 04:00 05/05/18 04:30 05/05/18 05:15 Temperature 99 F Pulse Rate 91 H Respiratory Rate 20 19 16 Blood Pressure 161/80 H Pulse Oximetry 100 97 05/05/18 06:00 Temperature Pulse Rate 93 H Respiratory Rate Blood Pressure Pulse Oximetry Intake & Output 05/04/18 05/04/18 05/05/18 06:59 18:59 06:59 Intake Total 613 / 613 2099 2870 / 2870 Output Total 1150 / 1150 2350 / 2350 700 / 700 Balance -537 / -537 -250 / -250 2170 / 2170 Weight 145.5 kg 145.5 kg Intake: IV 400 / 400 2099 2550 / 2550 Versed Inj 50 mg In 50 ml @ 2 50 / 50 MG/HR 2 mls/hr IV.CONT TITRATE PRN Rx#:[id number] Diprivan 1000 mg/100 ml Inj 1, 100 / 100 100 / 100 000 mg In 100 ml @ 5 MCG/KG/MIN 3.538 mls/hr IV.CONT TITRATE PRN Rx#:[id number] NS Inj 1,000 ML @ 84 mls/hr IV. 1000 / 1000 1999 / 1999 CONT .[id number] [facility] Rx#:[id number] Ampicillin Inj 2,000 MG In NS 300 / 300 300 / 300 200 / 200 Inj 100 ML @ 400 mls/hr IV.SIG Q4H [facility] Rx#:[id number] Vancomycin Inj 2,500 MG In NS 550 / 550 Inj 500 ML @ 250 mls/hr IV.SIG Q24H [facility] Rx#:[id number] Rocephin Inj 2,000 MG In NS Inj 100 / 100 100 / 100 100 ML @ 200 mls/hr IV.SIG Q12H [facility] Rx#:[id number] fentaNYL 10 mcg/mL Premix Drip 250 / 250 2,500 mcg In 250 ml @ 50 MCG/HR 5 mls/hr IV.SIG TITRATE PRN Rx #:[id number] Tube Feeding 213 / 213 320 / 320 Output: Urine 1150 / 1150 2350 / 2350 700 / 700 Other: Date of Last Bowel Movement 04/30/18 04/30/18 # Bowel Movements 1 1 Result Diagrams: 05/05/18 03:23 05/05/18 03:23 Objective Remarks: GEN: Intubated and sedated, no acute distress HEENT: NCAT, ETT and OGT in place NECK: Trachea midline CARDIO: Regular rate and rhythm RESP: Breath sounds present bilaterally, less coarse than yesterday ABD/GI: Soft, non-distended, non-tender EXT/MSK: Trace to 1+ peripheral edema, warm and well-perfused SKIN: No erythema or rashes noted, well-healed surgical incisional scar to left knee, no erythema NEURO: GCS 8T (E3VTM4), RASS 0 to -1 PSYCH: Unable to assess Assessment and Plan - Assessment and Plan Plan: 62yM presenting with altered mental status, profound hyperthermia, sepsis/ SIRS , respiratory failure requiring mechanical ventilation NEURO: -Sedation vacation, wean vent -CT and MRI brain/ C/T/L spine showed no acute abnormalities -LP shows 2100 WBCs (mostly neutrophils) and 2K RBCs, opening pressure 25/ closing pressure 19 -Continue antibiotics as detailed below -Continue home nortriptyline- patient does not have clonus or rigidity on exam, low suspicion for NMS/ serotonin syndrome CARDIO: -Echo from 05/02 showed EF 60%, PAP 45 mmHg, mild concentric LVH and mildly dilated LA RESP: -Spontaneous breathing trial/ wean vent, would like to extubate if possible -Vent bundle -Nebs -CXR 05/02 showed minimal pulmonary vascular congestion F/E/N, RENAL: -Maintaining negative fluid balance with intermittent lasix dosing, will add free H2O today as sodium/ chloride are elevated -Creat trending down to 1.15 -RENO likely due to sepsis, avoid nephrotoxic drugs ID: -Blood cultures, CSF, and urine cultures all no growth to date -Influenza and MRSA swab negative -ID recommendations appreciated -Continue vanco, rocephin, ampicillin PROPHY: -SCDs, SQH -Pepcid Level 2 follow up To help prompt me to consider important information that might be impacting today's encounter and assessment, information from prior notes written by myself or my colleagues may have been "brought forward" into today's note. My signature on this note, however, is an attestation that I personally performed the exam, history, and/or decision-making noted today, and, unless otherwise indicated, the interactions with patient, family, and staff as well as the review of records all occurred today. I also attest that the listed assessment and stated plan reflect my best clinical judgment today based on the combination of historical information, prior notes, and today's exam/ interactions. Code Status: Full
[2018-05-05] MEDS: Chlorhexidine 0.12% Oral Kit 15 ML UDC OROPHARYNG SCH ×2 (08:54→20:26)
[2018-05-05] MEDS: Nortriptyline 25 MG Capsule PO SCH (08:59)
[2018-05-05] MEDS: Famotidine 20 MG Tablet PO SCH ×2 (09:00→22:15)
[2018-05-05] MEDS: Senna/Docusate Sodium 8.6/50 MG Tablet PO SCH ×2 (09:00→22:15)
[2018-05-05] MEDS: hydrALAZINE HCl Inj 20 MG/ML Vial IV.PUSH PRN (11:38)
[2018-05-05] MEDS: Vancomycin Inj 2,500 MG in Sodium Chlor 0.9% Inj 500 ML IV.SIG SCH (12:58)
[2018-05-05] MEDS ORDERED: RESP: Acetylcysteine 10% 4 ML Neb NEB SCH (16:00)
[2018-05-05] MEDS: Sod Chloride 0.9% Inj 1,000 ML IV.CONT SCH (16:27)
[2018-05-05] MEDS: Dexmedetomidine Inj 1,000 MCG in Sodium Chlor 0.9% Inj 240 ML IV.CONT PRN (20:23)
[2018-05-06] MEDS: Sod Chloride 0.9% Inj 1,000 ML IV.CONT SCH ×2 (00:06→07:00)
[2018-05-06] MEDS: Oral Hygiene Kit OROPHARYNG SCH ×5 (00:07→23:28)
[2018-05-06] MEDS: Heparin - SQ 10,000 UNITS/ML Vial SQ SCH ×3 (03:14→20:46)
[2018-05-06] MEDS: Dexmedetomidine Inj 1,000 MCG in Sodium Chlor 0.9% Inj 240 ML IV.CONT PRN (05:17)
[2018-05-06 05:31] LABS: Baso % (Auto) 0.1 % (0.0-2.0); Eos # (Auto) 0.5 th/mm3 (0.0-0.4); Eos % (Auto) 3.6 % (0.0-4.0); Hematocrit 29.3 % (39.0-51.0); Hemoglobin 9.3 gm/dL (13.0-17.0); Lymph # (Auto) 1.2 th/mm3 (1.0-4.8); Lymph % (Auto) 9.1 % (9.0-44.0); Mean Corpuscular HGB Conc 31.8 % (32.0-36.0); Mean Corpuscular Hemoglobin 28.8 pg (27.0-34.0); Mean Corpuscular Volume 90.4 fL (80.0-100.0); Mean Platelet Volume 9.2 fL (7.0-11.0); Mono # (Auto) 1.3 th/mm3 (0.0-0.9); Mono % (Auto) 9.9 % (0.0-8.0); Neut % (Auto) 77.3 % (16.0-70.0); Platelet Count 200 th/mm3 (150-450); Red Blood Count 3.24 mil/mm3 (4.50-5.90); Red Cell Distribution Width 18.4 % (11.6-17.2); White Blood Count 12.9 th/mm3 (4.0-11.0)
[2018-05-06 06:04] LABS: Albumin 1.6 g/dL (3.4-5.0); Anion Gap 9 meq/L (5-15); Aspartate Aminotransferase 26 U/L (15-37); Blood Urea Nitrogen 35 mg/dL (7-18); Calcium 8.4 mg/dL (8.5-10.1); Carbon Dioxide 25.2 meq/L (21.0-32.0); Chloride 118 meq/L (98-107); Glomerular Filtration Rate 76 mL/min (>89); Glucose,Random 87 mg/dL (74-106); Magnesium 2.6 mg/dL (1.5-2.5); Potassium 4.3 meq/L (3.5-5.1); Sodium 152 meq/L (136-145)
[2018-05-06 06:07] LABS: Alanine Aminotransferase 17 U/L (12-78); Alkaline Phosphatase 168 U/L (45-117); Total Protein 6.3 g/dL (6.4-8.2)
[2018-05-06] MEDS: Nortriptyline 25 MG Capsule PO SCH (08:17)
[2018-05-06] MEDS: Senna/Docusate Sodium 8.6/50 MG Tablet PO SCH ×2 (08:17→20:46)
[2018-05-06] MEDS: Chlorhexidine 0.12% Oral Kit 15 ML UDC OROPHARYNG SCH ×2 (08:17→19:04)
[2018-05-06] MEDS: Famotidine 20 MG Tablet PO SCH ×2 (08:17→20:46)
[2018-05-06] MEDS ORDERED: Furosemide Liq 40 MG/5 ML UDC NG/OG SCH (09:30)
--- NOTE | 2018-05-06 09:31 | P.PNCC ---
Subjective Subjective Remarks/Hospital Course: 62 year old male presents with a history of developing altered mentation earlier in the evening tonight. Patient's family reports that the patient has not been well for the last week, intermittently confused, however it became much worse this evening. They report that they had been trying to convince him to come to the emergency department, however he refused. The patient has a history of having a left knee replacement with chronic intermittent swelling and redness associated with that leg. He has been on antibiotic in the past for this. 3 days ago he developed increased swelling and more redness than ever before earlier today. The patient was experiencing intermittent tremors and rigors throughout the day today. The patient's family reports that approximately a week ago he was seen in the [place] emergency department related to back pain mainly on the right side of his mid back area. According to the record, he did have a urinalysis done that showed no evidence of infection, however the record from that evaluation revealed that the patient was on Bactrim for some reason the patient's family is unclear about. Unfortunately, the patient himself is unable to provide any significant history as he arrives with a fever of 104.1. In the emergency department he remained tremulous and extremely confused and was intubated by an ED attending for an airway protection. 05/02: Patient remains intubated and sedated, very low urine output over the past 24 hours, K+ 6.0 today with no EKG changes. 05/03: No significant overnight events, Tmax 99.7F, still intubated and sedated. UO improved with lasix x 1 dose. 05/04: Creatinine continues to improve, cultures negative, will start SBT today. 05/05: Wean sedation and vent today. Add free H2O flushes. Afebrile, all cultures NGTD. 05/06: No significant overnight events. Attempted pressure support trial on patient yesterday afternoon but he became tachypneic and appeared uncomfortable , placed on SIMV rate of 8, 12/5, FiO2 40-50% and tolerated well, titrated down rate until he was back on pressure support this morning. He is tolerating 10/5 well, resps in high teens/ low 20s with tidal volumes 4-500. Sedation is now off and tube feeds are on hold, hopeful that we can extubate today. Objective Vital Signs / I&O: Vital Signs 05/05/18 10:00 05/05/18 11:00 05/05/18 11:15 Temperature Pulse Rate 96 H 96 H Respiratory Rate 21 22 21 Blood Pressure 186/91 H 190/92 H Pulse Oximetry 93 L 94 L 94 L 05/05/18 11:52 05/05/18 11:54 05/05/18 12:00 Temperature 99.3 F Pulse Rate 115 H 112 H 119 H Respiratory Rate 48 H 40 H 50 H Blood Pressure 254/127 H 239/107 H Pulse Oximetry 94 L 97 92 L 05/05/18 12:01 05/05/18 13:00 05/05/18 14:00 Temperature Pulse Rate 123 H 109 H 109 H Respiratory Rate 48 H 32 H 30 H Blood Pressure 181/108 H 186/89 H Pulse Oximetry 92 L 90 L 97 05/05/18 15:00 05/05/18 15:01 05/05/18 15:48 Temperature Pulse Rate 83 82 Respiratory Rate 19 15 31 H Blood Pressure 142/68 H Pulse Oximetry 95 95 96 05/05/18 16:00 05/05/18 16:16 05/05/18 18:00 Temperature 99.4 F Pulse Rate 78 76 71 Respiratory Rate 0 L 29 H Blood Pressure 129/63 Pulse Oximetry 97 05/05/18 19:20 05/05/18 20:00 05/05/18 20:59 Temperature 98.9 F Pulse Rate 72 68 Respiratory Rate 23 20 23 Blood Pressure 123/72 Pulse Oximetry 99 97 05/05/18 22:00 05/06/18 00:00 05/06/18 00:02 Temperature 98.7 F Pulse Rate 54 L 55 L Respiratory Rate 22 21 Blood Pressure 114/64 Pulse Oximetry 97 98 05/06/18 02:00 05/06/18 03:19 05/06/18 04:00 Temperature 98.5 F Pulse Rate 52 L 53 L 62 Respiratory Rate 26 H 18 Blood Pressure 121/73 Pulse Oximetry 98 05/06/18 04:12 05/06/18 06:00 05/06/18 06:30 Temperature Pulse Rate 67 Respiratory Rate 24 Blood Pressure Pulse Oximetry 98 96 05/06/18 07:21 Temperature Pulse Rate 64 Respiratory Rate 22 Blood Pressure Pulse Oximetry 96 Intake & Output 05/05/18 05/06/1818 18:59 06:59 18:59 Intake Total 2233 / 2233 1150 / 1150 Output Total 800 / 800 850 / 850 Balance 1433 / 1433 300 / 300 Weight 143 kg Intake: IV 1625 / 1625 750 / 750 Precedex Inj 1,000 MCG In NS 250 / 250 Inj 240 ML @ 0.2 MCG/KG/HR 7.27 mls/hr IV.CONT TITRATE PRN Rx# :[id number] NS Inj 1,000 ML @ 84 mls/hr IV. 800 / 800 CONT .[id number] [facility] Rx#:[id number] Ampicillin Inj 2,000 MG In NS 200 / 200 400 / 400 Inj 100 ML @ 400 mls/hr IV.SIG Q4H [facility] Rx#:[id number] Vancomycin Inj 2,500 MG In NS 525 / 525 Inj 500 ML @ 250 mls/hr IV.SIG Q24H [facility] Rx#:[id number] Rocephin Inj 2,000 MG In NS Inj 100 / 100 100 / 100 100 ML @ 200 mls/hr IV.SIG Q12H [facility] Rx#:[id number] Tube Feeding 88 / 88 0 / 0 Tube Irrigant 120 / 120 200 / 200 Water Bolus Amount 400 / 400 200 / 200 Output: Urine 800 / 800 850 / 850 Other: Date of Last Bowel Movement 05/05/18 05/06/18 # Bowel Movements 1 1 Result Diagrams: 05/06/18 03:36 05/06/18 03:36 Objective Remarks: GEN: Intubated and sedated HEENT: NCAT, ETT and OGT in place NECK: Trachea midline CARDIO: Regular rate and rhythm RESP: Breath sounds present bilaterally, less coarse than yesterday ABD/GI: Soft, non-distended, non-tender EXT/MSK: Trace to 1+ peripheral edema, warm and well-perfused SKIN: No erythema or rashes noted NEURO: GCS 7T (E2VTM4), RASS 0 to -1 PSYCH: Unable to assess Assessment and Plan - Assessment and Plan Plan: 62yM presenting with altered mental status, profound hyperthermia, sepsis/ SIRS , respiratory failure requiring mechanical ventilation NEURO: -All sedation currently off. Patient may take a while to metabolize residual sedation/ fentanyl due to critical illness and body habitus -CT and MRI brain/ C/T/L spine showed no acute abnormalities -LP shows 2100 WBCs (mostly neutrophils) and 2K RBCs, opening pressure 25/ closing pressure 19 -Continue antibiotics as detailed below -Continue home nortriptyline- patient does not have clonus or rigidity on exam, low suspicion for NMS/ serotonin syndrome CARDIO: -Echo from 05/02 showed EF 60%, PAP 45 mmHg, mild concentric LVH and mildly dilated LA RESP: -Extubate when more awake -Vent bundle -Nebs -CXR 05/02 showed minimal pulmonary vascular congestion F/E/N, RENAL: -UO dropped off yesterday, will start PO lasix -Creat stable at 1.17 -Will start 1/2 NS for now as tube feeds are on hold in preparation for extubation, sodium and chloride trending up. Will d/c once extubated. -RENO likely due to sepsis, avoid nephrotoxic drugs ID: -Blood cultures, CSF, and urine cultures all no growth to date -Influenza and MRSA swab negative -ID recommendations appreciated -Continue vanco, rocephin, ampicillin PROPHY: -SCDs, SQH -Pepcid Level 2 follow up To help prompt me to consider important information that might be impacting today's encounter and assessment, information from prior notes written by myself or my colleagues may have been "brought forward" into today's note. My signature on this note, however, is an attestation that I personally performed the exam, history, and/or decision-making noted today, and, unless otherwise indicated, the interactions with patient, family, and staff as well as the review of records all occurred today. I also attest that the listed assessment and stated plan reflect my best clinical judgment today based on the combination of historical information, prior notes, and today's exam/ interactions. Code Status: Full
[2018-05-06] MEDS: Sodium Chloride 0.45 % Inj 1,000 ML IV.CONT SCH ×2 (10:46→23:28)
[2018-05-06] MEDS ORDERED: Pharmacy Ordered Lab Info OTHER ONE (11:45)
[2018-05-06] MEDS: hydrALAZINE HCl Inj 20 MG/ML Vial IV.PUSH PRN ×2 (13:17→17:02)
[2018-05-06] MEDS: Labetalol HCl Inj 100 MG/20 ML Vial IV.PUSH PRN ×2 (15:37→21:37)
--- NOTE | 2018-05-06 15:45 | P.PNID ---
Subjective Remarks: pt was seen earlier today his vss stable afebrile getting ready to be extubated NGTD on any cultures Antibiotics: vanco r ampicillin Rocephine Allergies/Adverse Reactions: Allergies No Known Allergies Allergy (Verified 04/25/18 16:10) Objective Vital Signs 05/05/18 15:48 05/05/18 16:00 05/05/18 16:16 Temperature 99.4 F Pulse Rate 78 76 Respiratory Rate 31 H 0 L 29 H Blood Pressure 129/63 Pulse Oximetry 96 97 05/05/18 18:00 05/05/18 19:20 05/05/18 20:00 Temperature 98.9 F Pulse Rate 71 72 Respiratory Rate 23 20 Blood Pressure 123/72 Pulse Oximetry 99 97 05/05/18 20:59 05/05/18 22:00 05/06/18 00:00 Temperature 98.7 F Pulse Rate 68 54 L 55 L Respiratory Rate 23 22 Blood Pressure 114/64 Pulse Oximetry 97 05/06/18 00:02 05/06/18 02:00 05/06/18 03:19 Temperature Pulse Rate 52 L 53 L Respiratory Rate 21 26 H Blood Pressure Pulse Oximetry 98 05/06/18 04:00 05/06/18 04:12 05/06/18 06:00 Temperature 98.5 F Pulse Rate 62 67 Respiratory Rate 18 24 Blood Pressure 121/73 Pulse Oximetry 98 98 05/06/18 06:30 05/06/18 07:21 05/06/18 08:00 Temperature 98.2 F Pulse Rate 64 62 Respiratory Rate 22 24 Blood Pressure 135/78 Pulse Oximetry 96 96 95 05/06/18 09:00 05/06/18 10:00 05/06/18 11:00 Temperature Pulse Rate 72 68 71 Respiratory Rate 26 H 26 H 23 Blood Pressure 177/101 H 145/79 H 163/91 H Pulse Oximetry 88 L 99 100 05/06/18 11:09 05/06/18 12:00 05/06/18 13:00 Temperature Pulse Rate 75 92 H Respiratory Rate 24 18 25 H Blood Pressure 175/89 H 200/99 H Pulse Oximetry 99 100 100 05/06/18 13:57 05/06/18 14:15 Temperature Pulse Rate 100 H Respiratory Rate 22 Blood Pressure 217/129 H Pulse Oximetry 93 L 98 Intake & Output 05/05/18 05/06/1818 18:59 06:59 18:59 Intake Total 2233 / 2233 1150 / 1150 100 / 100 Output Total 800 / 800 850 / 850 Balance 1433 / 1433 300 / 300 100 / 100 Weight 143 kg Intake: IV 1625 / 1625 750 / 750 100 / 100 Precedex Inj 1,000 MCG In NS 250 / 250 Inj 240 ML @ 0.2 MCG/KG/HR 7.27 mls/hr IV.CONT TITRATE PRN Rx# :[id number] NS Inj 1,000 ML @ 84 mls/hr IV. 800 / 800 CONT .[id number] [facility] Rx#:[id number] Ampicillin Inj 2,000 MG In NS 200 / 200 400 / 400 Inj 100 ML @ 400 mls/hr IV.SIG Q4H [facility] Rx#:[id number] Vancomycin Inj 2,500 MG In NS 525 / 525 Inj 500 ML @ 250 mls/hr IV.SIG Q24H [facility] Rx#:[id number] Rocephin Inj 2,000 MG In NS Inj 100 / 100 100 / 100 100 / 100 100 ML @ 200 mls/hr IV.SIG Q12H [facility] Rx#:[id number] Tube Feeding 88 / 88 0 / 0 Tube Irrigant 120 / 120 200 / 200 Water Bolus Amount 400 / 400 200 / 200 Output: Urine 800 / 800 850 / 850 Other: Date of Last Bowel Movement 05/05/18 05/06/18 # Bowel Movements 1 1 04/30/18 23:09 Blood - Peripheral Aerobic Blood Culture - Final No growth in 5 days 04/30/18 23:09 Blood - Peripheral Anaerobic Blood Culture - Final No growth in 5 days 04/30/18 23:00 Blood - Peripheral Aerobic Blood Culture - Final No growth in 5 days 04/30/18 23:00 Blood - Peripheral Anaerobic Blood Culture - Final No growth in 5 days 05/01/18 04:10 Lumbar Puncture Gram Stain - Final 05/01/18 04:10 Lumbar Puncture CSF Culture - Final No growth in 72 hours Lab - Hematology Results 05/05/18 05/06/18 03:23 03:36 WBC 13.7 H 12.9 H RBC 3.23 L 3.24 L Hgb 9.5 L 9.3 L Hct 29.0 L 29.3 L MCV 89.6 90.4 MCH 29.3 28.8 MCHC 32.7 31.8 L RDW 18.6 H 18.4 H Plt Count 191 200 MPV 9.0 9.2 Neut % (Auto) 80.6 H 77.3 H Lymph % (Auto) 5.6 L 9.1 [place] % (Auto) 9.5 H 9.9 H Eos % (Auto) 4.1 H 3.6 Baso % (Auto) 0.2 0.1 Neut # (Auto) 11.0 H 10.0 H Lymph # (Auto) 0.8 L 1.2 [place] # (Auto) 1.3 H 1.3 H Eos # (Auto) 0.6 H 0.5 H Baso # (Auto) 0.0 0.0 WBC Differential . . Differential Comment Auto diff final Auto diff final Lab - Chemistry Results 05/05/18 05/06/18 03:23 03:36 Sodium 151 H 152 H Potassium 4.1 4.3 Chloride 118 H 118 H Carbon Dioxide 24.6 25.2 Anion Gap 8 9 BUN 32 H 35 H Creatinine 1.15 1.17 Estimated GFR 78 L 76 L Random Glucose 113 H 87 Calcium 8.0 L 8.4 L Magnesium 2.5 2.6 H Total Bilirubin 0.1 L 0.2 AST 30 26 ALT 13 17 Alkaline Phosphatase 127 H 168 H Total Protein 6.1 L 6.3 L Albumin 1.7 L 1.6 L Imaging: ITS Impressions Venous Doppler Study 04/30/18 22:58 CONCLUSION: 1. Negative exam with no evidence of deep venous thrombosis. Cervical Spine MRI 05/01/18 00:00 CONCLUSION: 1. The bony structures appear intact. The disc appears grossly intact with normal signal. No abnormal areas of enhancement are seen in the cervical spine. 2. Minimal disc bulge at the C6-C7 level. Head CT 05/01/18 00:00 CONCLUSION: 1. No acute hemorrhage or mass effect.. 2. Moderate size retention cyst in left maxillary sinus. There is mucosal thickening in the ethmoidal air cells. . Head MRI 05/01/18 00:00 CONCLUSION: 1. No acute intracranial abnormality is seen. 2. Minimal suspected small vessels ischemic change in the white matter. 3. Sinus disease. Knee MRI 05/01/18 00:00 CONCLUSION: 1. Limited MRI examination secondary to the knee prosthesis. An area of signal abnormality within the bony structures is not clearly identified. Susceptibility artifact does limit the evaluation. 2. No joint effusion. 3. No soft tissue fluid collections are seen. Lumbar Spine MRI 05/01/18 00:00 CONCLUSION: 1. The bones and discs demonstrate normal signal. 2. Minimal disc bulge at the L4-L5 level. 3. Lower lumbar facet hypertrophy. Thoracic Spine MRI 05/01/18 00:00 CONCLUSION: Negative thoracic spine MRI examination. Lumbar Spine CT 05/01/18 00:05 CONCLUSION: 1. No underlying bony abnormality. There is no evidence to suggest osteomyelitis. 2. Mild to moderate central canal stenosis at L2-3 secondary to disc bulge and degenerative change involving the facets. 3. Milder disc bulges at the L3-4 and L4-5 levels with mild flattening the anterior thecal sac and no focal protrusion. 4. Degenerative changes involving the lower facet joints. Thoracic Spine CT 05/01/18 00:05 CONCLUSION: 1. Mild chronic appearing wedging of several of the midthoracic vertebral bodies. 2. No destructive change or sclerosis. Abdomen/Pelvis CT 05/01/18 00:12 CONCLUSION: 1. Unremarkable bowel gas pattern with no evidence of obstruction. 2. Unremarkable appearing kidneys. 3. Nasogastric tube in place with fluid in the distal esophagus. Chest CT 05/01/18 00:20 CONCLUSION: 1. Tiny bilateral pleural effusions. 2. Nasogastric tube in place with fluid surrounding the tube in the esophagus. Is nonspecific. 3. Apparent atelectasis in the dependent portions of lung bases. 4. The study is degraded by motion streak artifact. Chest X-Ray 05/02/18 00:00 CONCLUSION: 1. Minimal central pulmonary vascular congestion. 2. Minimal bibasilar atelectasis. 3. Cardiomegaly. 4. Endotracheal tube and nasogastric tube in good positions. Physical Exam: GENERAL: NAD not sedated since this am intubated SKIN: Warm and dry. HEAD: Atraumatic. Normocephalic. EYES: Pupils equal and round. No scleral icterus. No injection or drainage. ENT: No nasal bleeding or discharge. Mucous membranes pink and moist. NECK: Trachea midline. No JVD. CARDIOVASCULAR: Regular rate and rhythm. RESPIRATORY: No accessory muscle use. Clear to auscultation. Breath sounds equal bilaterally. GASTROINTESTINAL: Abdomen soft, non-tender, nondistended. Hepatic and splenic margins not palpable. MUSCULOSKELETAL: Extremities without clubbing, cyanosis, + 1 edema, more prominent on LLE. No obvious deformities. NEUROLOGICAL: opens eyes to voice responsive but nnot following commands PSYCHIATRIC: unable to assess Assessment and Plan - Plan Suspected acute bacterial meningitis - other ethiologies herpetic meningitis, fungal meningitis sepsis ? L knee prosthetic joint infection jt Wagner: in Sep pt took 2 weeks of abx (doxy, bactrim) MR knee w/o fluid collections Acute VDRF Critically ill, stable PLAN: Monitor CSF clx and patricia antigens cont ceftriaxone dc Vancomycin dc Ampicilin dc flagyl , fu CSF studies dw RN dw mother, son and brother @ b/s
[2018-05-06] MEDS: Metoprolol Tartrate 25 MG Tablet PO SCH (20:45)
[2018-05-07] MEDS: hydrALAZINE HCl Inj 20 MG/ML Vial IV.PUSH PRN ×2 (02:23→20:17)
[2018-05-07] MEDS: Heparin - SQ 10,000 UNITS/ML Vial SQ SCH ×3 (02:23→18:27)
[2018-05-07] MEDS: Labetalol HCl Inj 100 MG/20 ML Vial IV.PUSH PRN ×3 (03:32→23:08)
[2018-05-07] MEDS: Oral Hygiene Kit OROPHARYNG SCH ×3 (03:33→16:24)
[2018-05-07 06:09] LABS: Baso # (Auto) 0.1 th/mm3 (0.0-0.2); Baso % (Auto) 0.5 % (0.0-2.0); Eos # (Auto) 0.4 th/mm3 (0.0-0.4); Hematocrit 28.5 % (39.0-51.0); Hemoglobin 9.4 gm/dL (13.0-17.0); Lymph # (Auto) 1.7 th/mm3 (1.0-4.8); Lymph % (Auto) 13.5 % (9.0-44.0); Mean Platelet Volume 9.1 fL (7.0-11.0); Mono # (Auto) 1.1 th/mm3 (0.0-0.9); Mono % (Auto) 9.1 % (0.0-8.0); Neut # (Auto) 9.2 th/mm3 (1.8-7.7); Neut % (Auto) 73.9 % (16.0-70.0); Platelet Count 234 th/mm3 (150-450); Red Blood Count 3.24 mil/mm3 (4.50-5.90); Red Cell Distribution Width 18.1 % (11.6-17.2); White Blood Count 12.5 th/mm3 (4.0-11.0)
--- NOTE | 2018-05-07 06:34 | P.PNCC ---
Subjective Subjective Remarks/Hospital Course: 62 year old male presents with a history of developing altered mentation earlier in the evening tonight. Patient's family reports that the patient has not been well for the last week, intermittently confused, however it became much worse this evening. They report that they had been trying to convince him to come to the emergency department, however he refused. The patient has a history of having a left knee replacement with chronic intermittent swelling and redness associated with that leg. He has been on antibiotic in the past for this. 3 days ago he developed increased swelling and more redness than ever before earlier today. The patient was experiencing intermittent tremors and rigors throughout the day today. The patient's family reports that approximately a week ago he was seen in the [place] emergency department related to back pain mainly on the right side of his mid back area. According to the record, he did have a urinalysis done that showed no evidence of infection, however the record from that evaluation revealed that the patient was on Bactrim for some reason the patient's family is unclear about. Unfortunately, the patient himself is unable to provide any significant history as he arrives with a fever of 104.1. In the emergency department he remained tremulous and extremely confused and was intubated by an ED attending for an airway protection. 05/02: Patient remains intubated and sedated, very low urine output over the past 24 hours, K+ 6.0 today with no EKG changes. 05/03: No significant overnight events, Tmax 99.7F, still intubated and sedated. UO improved with lasix x 1 dose. 05/04: Creatinine continues to improve, cultures negative, will start SBT today. 05/05: Wean sedation and vent today. Add free H2O flushes. Afebrile, all cultures NGTD. 05/06: No significant overnight events. Attempted pressure support trial on patient yesterday afternoon but he became tachypneic and appeared uncomfortable , placed on SIMV rate of 8, 12/5, FiO2 40-50% and tolerated well, titrated down rate until he was back on pressure support this morning. He is tolerating 10/5 well, resps in high teens/ low 20s with tidal volumes 4-500. Sedation is now off and tube feeds are on hold, hopeful that we can extubate today. 05/07: Extubated yesterday afternoon, doing well overnight. Noted by patient's mother and RN to have some difficulty swallowing, will request speech therapy evaluation. Objective Vital Signs / I&O: Vital Signs 05/06/18 07:21 05/06/18 08:00 05/06/18 09:00 Temperature 98.2 F Pulse Rate 64 62 72 Respiratory Rate 22 24 26 H Blood Pressure 135/78 177/101 H Pulse Oximetry 96 95 88 L 05/06/18 10:00 05/06/18 11:00 05/06/18 11:09 Temperature Pulse Rate 68 71 Respiratory Rate 26 H 23 24 Blood Pressure 145/79 H 163/91 H Pulse Oximetry 99 100 99 05/06/18 12:00 05/06/18 13:00 05/06/18 13:57 Temperature Pulse Rate 75 92 H 100 H Respiratory Rate 18 25 H 22 Blood Pressure 175/89 H 200/99 H 217/129 H Pulse Oximetry 100 100 93 L 05/06/18 14:00 05/06/18 14:15 05/06/18 15:43 Temperature Pulse Rate 101 H 109 H Respiratory Rate 29 H 20 Blood Pressure 217/94 H Pulse Oximetry 97 98 05/06/18 16:00 05/06/18 18:00 05/06/18 20:00 Temperature 99 F Pulse Rate 113 H 112 H 107 H Respiratory Rate 17 26 H Blood Pressure 188/88 H 165/73 H Pulse Oximetry 100 95 05/06/18 20:56 05/06/18 22:00 05/07/18 00:00 Temperature 98.4 F Pulse Rate 110 H 91 H 95 H Respiratory Rate 19 27 H Blood Pressure 155/79 H Pulse Oximetry 96 93 L 05/07/18 02:00 05/07/18 04:00 05/07/18 06:00 Temperature 99.6 F Pulse Rate 97 H 92 H 100 H Respiratory Rate 25 H Blood Pressure 156/67 H Pulse Oximetry 94 L Intake & Output 05/06/18 05/06/18 05/07/18 06:59 18:59 06:59 Intake Total 1150 / 1150 512 / 512 1375 / 1375 Output Total 850 / 850 3800 / 3800 925 / 925 Balance 300 / 300 -3288 / -3288 450 / 450 Weight 143 kg 142.5 kg Intake: IV 750 / 750 392 / 392 1100 / 1100 Precedex Inj 1,000 MCG In NS 250 / 250 Inj 240 ML @ 0.2 MCG/KG/HR 7.27 mls/hr IV.CONT TITRATE PRN Rx# :[id number] 1/2 Normal Saline Inj 1,000 ML 1000 / 1000 @ 84 mls/hr IV.CONT .[id number] [facility] Rx#:[id number] Ampicillin Inj 2,000 MG In NS 400 / 400 Inj 100 ML @ 400 mls/hr IV.SIG Q4H [facility] Rx#:[id number] Rocephin Inj 2,000 MG In NS Inj 100 / 100 100 / 100 100 / 100 100 ML @ 200 mls/hr IV.SIG Q12H [facility] Rx#:[id number] Oral 120 / 120 275 / 275 Tube Feeding 0 / 0 Tube Irrigant 200 / 200 Water Bolus Amount 200 / 200 Output: Urine 850 / 850 3800 / 3800 925 / 925 Other: # Incontinent Voids 1 Date of Last Bowel Movement 05/06/18 05/06/18 05/07/18 # Bowel Movements 1 Result Diagrams: 05/07/18 03:47 05/07/18 03:47 Objective Remarks: GEN: Awake and alert, no acute distress HEENT: NCAT, PERRL NECK: Trachea midline CARDIO: Regular rate and rhythm RESP: Clear to auscultation bilaterally ABD/GI: Soft, non-distended, non-tender EXT/MSK: Trace to 1+ peripheral edema, warm and well-perfused SKIN: No erythema or rashes noted NEURO: A&Ox3, conversational, no focal deficits PSYCH: Calm, no agitation Assessment and Plan - Assessment and Plan Plan: 62yM presenting with altered mental status, profound hyperthermia, sepsis/ SIRS , respiratory failure requiring mechanical ventilation NEURO: -Delirium precautions (lights on/ shades up during the day, frequent reorientation, limit night time disruptions) CARDIO: -Echo from 05/02 showed EF 60%, PAP 45 mmHg, mild concentric LVH and mildly dilated LA -No active issues RESP: -Continue nebs PRN -Incentive spirometer -Encourage deep breathing/ coughing F/E/N, RENAL: -Lasix 20 mg PO daily started, decreased from 40 yesterday, UO remains good -Metoprolol 25 mg PO BID started yesterday -Creat stable at 1.1 -Restart home [facility]-I -Hypernatremia improving, patient to be evaluated by speech therapy and PO diet to be started as per their recommendations ID: -Blood cultures, CSF, and urine cultures all no growth to date -Influenza and MRSA swab negative -ID recommendations appreciated -Continue rocephin PROPHY: -SCDs, SQH -Pepcid PT eval/ out of bed to chair today Patient stable to move out of [facility] [place], transfer to hospitalist service Level 2 follow up To help prompt me to consider important information that might be impacting today's encounter and assessment, information from prior notes written by myself or my colleagues may have been "brought forward" into today's note. My signature on this note, however, is an attestation that I personally performed the exam, history, and/or decision-making noted today, and, unless otherwise indicated, the interactions with patient, family, and staff as well as the review of records all occurred today. I also attest that the listed assessment and stated plan reflect my best clinical judgment today based on the combination of historical information, prior notes, and today's exam/ interactions. Code Status: Full
[2018-05-07 06:37] LABS: Alanine Aminotransferase 27 U/L (12-78); Albumin 1.8 g/dL (3.4-5.0); Alkaline Phosphatase 204 U/L (45-117); Anion Gap 8 meq/L (5-15); Aspartate Aminotransferase 56 U/L (15-37); Blood Urea Nitrogen 35 mg/dL (7-18); Calcium 8.7 mg/dL (8.5-10.1); Carbon Dioxide 25.7 meq/L (21.0-32.0); Chloride 116 meq/L (98-107); Glomerular Filtration Rate 82 mL/min (>89); Glucose,Random 87 mg/dL (74-106); Magnesium 2.4 mg/dL (1.5-2.5); Potassium 3.3 meq/L (3.5-5.1); Sodium 150 meq/L (136-145); Total Protein 6.2 g/dL (6.4-8.2)
[2018-05-07] MEDS ORDERED: Magnesium Sulfate Inj 2 GM in Sodium Chlor 0.9% Inj 96 ML IV.SIG PRN (06:50)
[2018-05-07] MEDS ORDERED: Potassium Chlor 20 mEq Premix 20 MEQ/100 ML PIGGYBACK IV.SIG PRN (06:50)
[2018-05-07] MEDS ORDERED: Sodium Phosphate Inj 30 MMOL in Sodium Chlor 0.9% Inj 250 ML IV.SIG PRN (06:50)
[2018-05-07] MEDS ORDERED: Potassium Phosphate 500 MG Soluble Tablet PO PRN ×2 (06:50)
[2018-05-07] MEDS ORDERED: Potassium Chlor 40 mEq Premix 40 MEQ/100 ML PIGGYBACK IV.SIG PRN ×2 (06:50)
[2018-05-07] MEDS ORDERED: Magnesium Oxide 400 MG Tablet PO PRN (06:50)
[2018-05-07] MEDS ORDERED: Potassium Phosphate Inj 30 MMOL in Sodium Chlor 0.9% Inj 250 ML IV.SIG PRN (06:50)
[2018-05-07] MEDS ORDERED: Potassium Chloride 25 MEQ Effervescent Tablet PO PRN (06:50)
[2018-05-07] MEDS ORDERED: Magnesium Sulfate Inj 4 GM in Sodium Chlor 0.9% Inj 92 ML IV.SIG PRN (06:50)
[2018-05-07] MEDS: Potassium Chlor 20 mEq Premix 20 MEQ/100 ML PIGGYBACK IV.SIG PRN ×3 (07:18→16:25)
[2018-05-07] MEDS: Lisinopril 20 MG Tablet PO SCH (08:01)
[2018-05-07] MEDS: Nortriptyline 25 MG Capsule PO SCH (08:01)
[2018-05-07] MEDS: Famotidine 20 MG Tablet PO SCH ×2 (08:01→20:16)
[2018-05-07] MEDS: Furosemide Liq 40 MG/5 ML UDC PO SCH (08:01)
[2018-05-07] MEDS: Senna/Docusate Sodium 8.6/50 MG Tablet PO SCH ×2 (08:01→20:16)
[2018-05-07] MEDS: Metoprolol Tartrate 25 MG Tablet PO SCH ×2 (08:02→20:16)
[2018-05-07] MEDS: Chlorhexidine 0.12% Oral Kit 15 ML UDC OROPHARYNG SCH ×2 (08:02→20:16)
[2018-05-07 08:39] LABS: Eosinophils 4 % (0-4); Lymphocytes 9 % (9-44); Monocytes 9 % (0-8); Myelocytes 1 % (0-0)
[2018-05-07 08:40] LABS: Platelet Estimate Normal (Normal); Platelet Morphology Normal (Normal)
--- NOTE | 2018-05-07 09:40 | P.DIET ---
Nutritional Evaluation Type of nutrition evaluation: follow-up Nutrition consult regarding: Diet Evaluation Screening comments: 05/01 TF review Objective - Diagnosis AMS, frebile illness, UTI, cellulitis - Objective Body Mass Index: 40.3 % IBW: 137 (IBW = 190lb) Body Weight Used for Calculations: IBW Energy Needs - Lower Range (kCal/kg): 22 Energy Needs - Upper Range (kCal/kg): 25 Lower Limit kCal/kg (kCals): 1,900 Upper Limit kCal/kg (kCals): 2,159 Lower Limit Protein Factor (Grams per Kg): 1.2 Upper Limit Protein Factor (Grams per Kg): 1.5 Lower Protein Needs (Protein): 103 Upper Protein Needs (Protein): 130 Dietitian Reviewed in Medical Record: Current diet, Curent medications, Intake & Output, Labs, Medical history, Tube feeding Diet Order: NPO, TF Objective Comments: PMH: GERD, high cholesterol, HTN Labs: BUN 35, K+ 3.3 Assessment Assessment: Pt extubated and TF d/keny[place] yesterday 05/06. Pt currently on regular diet. RD will monitor PO intake and tolerance. Will assess pts nutritional needs for a supplement if pt has poor PO intake. Labs reviewed, dietitian following. Recommendations: 1. Pt currently on regular diet. RD will monitor PO intake and tolerance 2. Will assess pts nutritional needs for a supplement if pt has poor PO intake 3. Dietitian following Dietitian to Monitor: Lab values, Intake & Output, Diet tolerance, PO Intake, Medical course
[2018-05-07] MEDS: Sodium Chloride 0.45 % Inj 1,000 ML IV.CONT SCH ×2 (11:28→20:22)
[2018-05-07] MEDS ORDERED: Metoprolol Tartrate 25 MG Tablet PO ONE (22:47)
[2018-05-08] MEDS: Oral Hygiene Kit OROPHARYNG SCH ×4 (00:24→23:06)
[2018-05-08] MEDS: hydrALAZINE HCl Inj 20 MG/ML Vial IV.PUSH PRN ×3 (00:41→23:05)
[2018-05-08] MEDS: Sodium Chloride 0.45 % Inj 1,000 ML IV.CONT SCH ×2 (02:48→16:40)
[2018-05-08] MEDS: Heparin - SQ 10,000 UNITS/ML Vial SQ SCH ×3 (02:48→18:30)
[2018-05-08] MEDS: Labetalol HCl Inj 100 MG/20 ML Vial IV.PUSH PRN ×3 (02:50→22:10)
[2018-05-08 06:48] LABS: Baso # (Auto) 0.1 th/mm3 (0.0-0.2); Baso % (Auto) 0.4 % (0.0-2.0); Eos # (Auto) 0.4 th/mm3 (0.0-0.4); Eos % (Auto) 2.2 % (0.0-4.0); Hematocrit 30.5 % (39.0-51.0); Hemoglobin 9.7 gm/dL (13.0-17.0); Lymph # (Auto) 1.6 th/mm3 (1.0-4.8); Lymph % (Auto) 10.4 % (9.0-44.0); Mean Corpuscular HGB Conc 31.9 % (32.0-36.0); Mean Corpuscular Hemoglobin 28.7 pg (27.0-34.0); Mean Platelet Volume 9.6 fL (7.0-11.0); Mono # (Auto) 1.5 th/mm3 (0.0-0.9); Mono % (Auto) 9.4 % (0.0-8.0); Neut # (Auto) 12.2 th/mm3 (1.8-7.7); Neut % (Auto) 77.6 % (16.0-70.0); Platelet Count 294 th/mm3 (150-450); Red Blood Count 3.39 mil/mm3 (4.50-5.90); White Blood Count 15.8 th/mm3 (4.0-11.0)
[2018-05-08 06:49] LABS: Alanine Aminotransferase 31 U/L (12-78)
[2018-05-08 06:52] LABS: Alkaline Phosphatase 199 U/L (45-117); Total Protein 6.6 g/dL (6.4-8.2)
[2018-05-08 07:17] LABS: Albumin 1.9 g/dL (3.4-5.0); Anion Gap 9 meq/L (5-15); Aspartate Aminotransferase 50 U/L (15-37); Blood Urea Nitrogen 29 mg/dL (7-18); Calcium 8.7 mg/dL (8.5-10.1); Carbon Dioxide 24.5 meq/L (21.0-32.0); Chloride 115 meq/L (98-107); Glomerular Filtration Rate Greater Than 89 mL/min (>89); Glucose,Random 93 mg/dL (74-106); Magnesium 2.4 mg/dL (1.5-2.5); Potassium 3.9 meq/L (3.5-5.1); Sodium 148 meq/L (136-145)
[2018-05-08 08:10] LABS: Eosinophils 3 % (0-4); Lymphocytes 10 % (9-44); Metamyelocytes 2 % (0-1); Monocytes 4 % (0-8); Myelocytes 1 % (0-0); Platelet Estimate Normal (Normal); Platelet Morphology Normal (Normal)
[2018-05-08] MEDS: Furosemide Liq 40 MG/5 ML UDC PO SCH ×2 (08:12→18:30)
[2018-05-08] MEDS: Senna/Docusate Sodium 8.6/50 MG Tablet PO SCH ×2 (08:13→20:19)
[2018-05-08] MEDS: Lisinopril 20 MG Tablet PO SCH (08:13)
[2018-05-08] MEDS: Famotidine 20 MG Tablet PO SCH ×2 (08:13→20:19)
[2018-05-08] MEDS: Nortriptyline 25 MG Capsule PO SCH (08:14)
[2018-05-08] MEDS ORDERED: Metoprolol Tartrate 50 MG Tablet PO SCH (09:00)
[2018-05-08] MEDS ORDERED: Metoprolol Tartrate 50 MG Tablet PO ONE (09:33)
--- NOTE | 2018-05-08 10:41 | P.PNCC ---
Subjective Subjective Remarks/Hospital Course: 62 year old male presents with a history of developing altered mentation earlier in the evening tonight. Patient's family reports that the patient has not been well for the last week, intermittently confused, however it became much worse this evening. They report that they had been trying to convince him to come to the emergency department, however he refused. The patient has a history of having a left knee replacement with chronic intermittent swelling and redness associated with that leg. He has been on antibiotic in the past for this. 3 days ago he developed increased swelling and more redness than ever before earlier today. The patient was experiencing intermittent tremors and rigors throughout the day today. The patient's family reports that approximately a week ago he was seen in the [place] emergency department related to back pain mainly on the right side of his mid back area. According to the record, he did have a urinalysis done that showed no evidence of infection, however the record from that evaluation revealed that the patient was on Bactrim for some reason the patient's family is unclear about. Unfortunately, the patient himself is unable to provide any significant history as he arrives with a fever of 104.1. In the emergency department he remained tremulous and extremely confused and was intubated by an ED attending for an airway protection. 05/02: Patient remains intubated and sedated, very low urine output over the past 24 hours, K+ 6.0 today with no EKG changes. 05/03: No significant overnight events, Tmax 99.7F, still intubated and sedated. UO improved with lasix x 1 dose. 05/04: Creatinine continues to improve, cultures negative, will start SBT today. 05/05: Wean sedation and vent today. Add free H2O flushes. Afebrile, all cultures NGTD. 05/06: No significant overnight events. Attempted pressure support trial on patient yesterday afternoon but he became tachypneic and appeared uncomfortable , placed on SIMV rate of 8, 12/5, FiO2 40-50% and tolerated well, titrated down rate until he was back on pressure support this morning. He is tolerating 10/5 well, resps in high teens/ low 20s with tidal volumes 4-500. Sedation is now off and tube feeds are on hold, hopeful that we can extubate today. 05/07: Extubated yesterday afternoon, doing well overnight. Noted by patient's mother and RN to have some difficulty swallowing, will request speech therapy evaluation. 05/08: Patient passed for modified dysphagia diet, hypertensive overnight, no other issues. Objective Vital Signs / I&O: Vital Signs 05/07/18 11:00 05/07/18 11:21 05/07/18 12:00 Temperature Pulse Rate 101 H 91 H Respiratory Rate 23 35 H Blood Pressure 162/77 H 171/84 H Pulse Oximetry 99 100 100 05/07/18 13:00 05/07/18 13:01 05/07/18 14:00 Temperature Pulse Rate 92 H 93 H 93 H Respiratory Rate 40 H 33 H 35 H Blood Pressure 199/91 H 188/87 H Pulse Oximetry 100 100 100 05/07/18 15:00 05/07/18 15:03 05/07/18 15:05 Temperature Pulse Rate 92 H 91 H 92 H Respiratory Rate 36 H 34 H 33 H Blood Pressure 207/92 H 200/92 H 204/93 H Pulse Oximetry 99 100 100 05/07/18 15:09 05/07/18 15:15 05/07/18 15:30 Temperature Pulse Rate 93 H 96 H 97 H Respiratory Rate 31 H 37 H 36 H Blood Pressure 183/74 H 188/86 H 196/86 H Pulse Oximetry 100 100 99 05/07/18 15:45 05/07/18 16:00 05/07/18 16:15 Temperature 98.3 F Pulse Rate 98 H 100 H 100 H Respiratory Rate 37 H 35 H 32 H Blood Pressure 193/91 H 199/91 H 206/95 H Pulse Oximetry 99 100 98 05/07/18 16:30 05/07/18 16:46 05/07/18 17:00 Temperature Pulse Rate 100 H 100 H 104 H Respiratory Rate 28 H 37 H 34 H Blood Pressure 212/96 H 208/103 H 206/93 H Pulse Oximetry 98 100 98 05/07/18 17:02 05/07/18 17:15 05/07/18 17:21 Temperature Pulse Rate 110 H 109 H 107 H Respiratory Rate 18 33 H 33 H Blood Pressure 227/100 H 225/89 H 219/100 H Pulse Oximetry 100 99 100 05/07/18 17:22 05/07/18 17:27 05/07/18 17:30 Temperature Pulse Rate 107 H 107 H 108 H Respiratory Rate 32 H 30 H 22 Blood Pressure 214/100 H 215/99 H 214/90 H Pulse Oximetry 100 99 100 05/07/18 17:34 05/07/18 18:00 05/07/18 20:00 Temperature 97.6 F Pulse Rate 93 H 93 H 97 H Respiratory Rate 28 H 23 Blood Pressure 183/84 H 202/95 H Pulse Oximetry 100 100 05/07/18 22:00 05/08/18 00:00 05/08/18 00:14 Temperature 99 F Pulse Rate 103 H 97 H Respiratory Rate 24 Blood Pressure 177/82 H Pulse Oximetry 93 L 96 05/08/18 02:00 05/08/18 03:36 05/08/18 04:00 Temperature 98.8 F Pulse Rate 104 H 99 H Respiratory Rate 23 Blood Pressure 161/74 H Pulse Oximetry 97 95 05/08/18 06:00 05/08/18 07:22 Temperature Pulse Rate 104 H Respiratory Rate Blood Pressure Pulse Oximetry 95 Intake & Output 05/07/18 05/08/18 05/08/18 18:59 06:59 18:59 Intake Total 1720 / 1720 1280 / 1280 Output Total 1550 / 1550 850 / 850 Balance 170 / 170 430 / 430 Weight 141.2 kg Intake: IV 1400 / 1400 1100 / 1100 1/2 Normal Saline Inj 1,000 ML 1000 / 1000 1000 / 1000 @ 84 mls/hr IV.CONT .[id number] [facility] Rx#:[id number] KCl 20 mEq Premix Inj 20 meq In 300 / 300 100 ml @ 50 mls/hr IV.SIG Q2H PRN Rx#:[id number] Rocephin Inj 2,000 MG In NS Inj 100 / 100 100 / 100 100 ML @ 200 mls/hr IV.SIG Q12H [facility] Rx#:[id number] Oral 320 / 320 180 / 180 Output: Urine 1550 / 1550 850 / 850 Other: Date of Last Bowel Movement 05/07/18 05/07/18 # Incontinent Bowel Movements 1 Result Diagrams: 05/08/18 04:34 05/08/18 04:34 Objective Remarks: GEN: Awake and alert, no acute distress HEENT: NCAT, PERRL NECK: Trachea midline CARDIO: Regular rate and rhythm, SBP 180s-190s RESP: Clear to auscultation bilaterally ABD/GI: Soft, non-distended, non-tender EXT/MSK: 1+ peripheral edema, warm and well-perfused SKIN: No erythema or rashes noted NEURO: A&Ox3, conversational, no focal deficits, global motor weakness (2+ to 3/ 5 motor strength in all extremities) PSYCH: Calm, no agitation Assessment and Plan - Assessment and Plan Plan: 62yM presenting with altered mental status, profound hyperthermia, sepsis/ SIRS , respiratory failure requiring mechanical ventilation, resolving NEURO: -Delirium precautions (lights on/ shades up during the day, frequent reorientation, limit night time disruptions) -Mental status at baseline CARDIO: -Echo from 05/02 showed EF 60%, PAP 45 mmHg, mild concentric LVH and mildly dilated LA -Will increase metoprolol from 50 mg BID to 100 mg BID, change lasix dosing from 20 mg qday to BID RESP: -Continue nebs PRN -Incentive spirometer -Encourage deep breathing/ coughing F/E/N, RENAL: -Increase lasix -Increase metoprolol -Creat stable at 0.95 -Continue home [facility]-I -Hypernatremia improving, D/C IVF -Dysphagia diet, continue to work with speech therapy ID: -Blood cultures, CSF, and urine cultures all no growth to date -Influenza and MRSA swab negative -ID recommendations appreciated -Continue rocephin 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 My signature on this note, however, is an attestation that I personally performed the exam, history, and/or decision-making noted today, and, unless otherwise indicated, the interactions with patient, family, and staff as well as the review of records all occurred today. I also attest that the listed assessment and stated plan reflect my best clinical judgment today based on the combination of historical information, prior notes, and today's exam/ interactions. Code Status: Full
[2018-05-08] MEDS: Chlorhexidine 0.12% Oral Kit 15 ML UDC OROPHARYNG SCH ×2 (16:36→19:49)
--- NOTE | 2018-05-08 18:50 | P.PNADD ---
Addendum to Inpatient Note Additional information: pt seen around 1800 full note to follow
[2018-05-08] MEDS: Metoprolol Tartrate 100 MG Tablet PO SCH (20:19)
--- NOTE | 2018-05-08 22:24 | P.PNID ---
Subjective Remarks: pt was seen earlier today afebrile extubated, on NC O2 NGTD on any cultures WBC up to 15.6 co headache Antibiotics: Rocephine Allergies/Adverse Reactions: Allergies No Known Allergies Allergy (Verified 04/25/18 16:10) Objective Vital Signs 05/07/18 23:42 05/08/18 00:00 05/08/18 00:08 Temperature 99 F Pulse Rate 97 H 97 H 98 H Respiratory Rate 19 32 H 17 Blood Pressure 174/79 H 177/82 H 177/84 H Pulse Oximetry 96 93 L 95 05/08/18 00:14 05/08/18 00:30 05/08/18 01:00 Temperature Pulse Rate 96 H 101 H Respiratory Rate 33 H 29 H Blood Pressure 186/82 H 175/76 H Pulse Oximetry 96 92 L 92 L 05/08/18 01:30 05/08/18 02:00 05/08/18 02:30 Temperature Pulse Rate 103 H 104 H 103 H Respiratory Rate 32 H 15 29 H Blood Pressure 177/79 H 183/79 H 171/77 H Pulse Oximetry 91 L 91 L 91 L 05/08/18 03:00 05/08/18 03:30 05/08/18 03:36 Temperature Pulse Rate 93 H 97 H Respiratory Rate 42 H 40 H Blood Pressure 160/72 H 161/74 H Pulse Oximetry 91 L 92 L 97 05/08/18 04:00 05/08/18 04:31 05/08/18 05:00 Temperature 98.8 F Pulse Rate 99 H 98 H 100 H Respiratory Rate 38 H 39 H 40 H Blood Pressure 170/77 H 169/78 H 176/81 H Pulse Oximetry 91 L 93 L 93 L 05/08/18 05:30 05/08/18 06:00 05/08/18 06:30 Temperature Pulse Rate 104 H 104 H 104 H Respiratory Rate 39 H 39 H 37 H Blood Pressure 177/79 H 174/77 H 189/86 H Pulse Oximetry 92 L 92 L 91 L 05/08/18 07:00 05/08/18 07:01 05/08/18 07:22 Temperature Pulse Rate 91 H 91 H Respiratory Rate 37 H 39 H Blood Pressure 169/77 H Pulse Oximetry 93 L 95 95 05/08/18 07:30 05/08/18 08:00 05/08/18 08:30 Temperature Pulse Rate 93 H 97 H 97 H Respiratory Rate 38 H 39 H 21 Blood Pressure 175/79 H 183/85 H 185/86 H Pulse Oximetry 93 L 93 L 92 L 05/08/18 09:00 05/08/18 09:01 05/08/18 09:31 Temperature Pulse Rate 97 H 98 H 94 H Respiratory Rate 15 14 22 Blood Pressure 180/84 H 180/82 H Pulse Oximetry 92 L 93 L 94 L 05/08/18 10:00 05/08/18 10:31 05/08/18 11:00 Temperature Pulse Rate 93 H 93 H 93 H Respiratory Rate 24 37 H 38 H Blood Pressure 177/81 H 179/78 H 180/84 H Pulse Oximetry 92 L 94 L 92 L 05/08/18 11:30 05/08/18 12:00 05/08/18 12:30 Temperature Pulse Rate 96 H 96 H 95 H Respiratory Rate 40 H 42 H 44 H Blood Pressure 175/83 H 189/88 H 190/88 H Pulse Oximetry 92 L 91 L 91 L 05/08/18 13:00 05/08/18 13:30 05/08/18 14:00 Temperature Pulse Rate 97 H 99 H 95 H Respiratory Rate 46 H 39 H 28 H Blood Pressure 180/87 H 173/81 H 172/81 H Pulse Oximetry 91 L 92 L 92 L 05/08/18 14:30 05/08/18 15:00 05/08/18 15:30 Temperature Pulse Rate 95 H 100 H 100 H Respiratory Rate 33 H 45 H 42 H Blood Pressure 177/84 H 175/82 H 183/84 H Pulse Oximetry 92 L 91 L 92 L 05/08/18 16:00 05/08/18 16:30 05/08/18 17:00 Temperature Pulse Rate 101 H 104 H 107 H Respiratory Rate 38 H 44 H 47 H Blood Pressure 195/86 H 210/98 H 212/98 H Pulse Oximetry 92 L 91 L 91 L 05/08/18 17:31 05/08/18 18:00 05/08/18 18:01 Temperature Pulse Rate 113 H 108 H 109 H Respiratory Rate 44 H 47 H 49 H Blood Pressure 236/127 H 209/98 H Pulse Oximetry 94 L 91 L 93 L 05/08/18 18:30 05/08/18 19:00 05/08/18 19:31 Temperature Pulse Rate 109 H 112 H 111 H Respiratory Rate 48 H 47 H 46 H Blood Pressure 203/96 H 213/97 H 203/95 H Pulse Oximetry 90 L 90 L 91 L 05/08/18 20:00 05/08/18 20:31 05/08/18 21:00 Temperature 98.9 F Pulse Rate 114 H 114 H 113 H Respiratory Rate 46 H 50 H 50 H Blood Pressure 213/99 H 216/98 H Pulse Oximetry 88 L 90 L 88 L 05/08/18 21:01 05/08/18 21:30 Temperature Pulse Rate 112 H 100 H Respiratory Rate 50 H 50 H Blood Pressure 197/92 H 192/89 H Pulse Oximetry 91 L 90 L Intake & Output 05/08/18 05/08/18 05/09/18 06:59 18:59 06:59 Intake Total 1280 / 1280 1300 / 1300 Output Total 850 / 850 1300 / 1300 Balance 430 / 430 0 / 0 Weight 141.2 kg Intake: IV 1100 / 1100 1100 / 1100 1/2 Normal Saline Inj 1,000 ML 1000 / 1000 1000 / 1000 @ 84 mls/hr IV.CONT .[id number] [facility] Rx#:[id number] Rocephin Inj 2,000 MG In NS Inj 100 / 100 100 / 100 100 ML @ 200 mls/hr IV.SIG Q12H [facility] Rx#:[id number] Oral 180 / 180 200 / 200 Output: Urine 850 / 850 1300 / 1300 Other: Date of Last Bowel Movement 05/07/18 05/07/18 05/07/18 # Incontinent Bowel Movements 1 Lab - Hematology Results 05/07/18 05/08/18 03:47 04:34 WBC 12.5 H 15.8 H RBC 3.24 L 3.39 L Hgb 9.4 L 9.7 L Hct 28.5 L 30.5 L MCV 88.0 90.0 MCH 29.0 28.7 MCHC 33.0 31.9 L RDW 18.1 H 18.0 H Plt Count 234 294 MPV 9.1 9.6 Prelim Diff (Auto) Slide review pending Slide review pending Neut % (Auto) 73.9 H 77.6 H Lymph % (Auto) 13.5 10.4 [place] % (Auto) 9.1 H 9.4 H Eos % (Auto) 3.0 2.2 Baso % (Auto) 0.5 0.4 Neut # (Auto) 9.2 H 12.2 H Lymph # (Auto) 1.7 1.6 [place] # (Auto) 1.1 H 1.5 H Eos # (Auto) 0.4 0.4 Baso # (Auto) 0.1 0.1 WBC Differential Manual diff final Manual diff final Seg Neuts % (Manual) 77 H 73 H Band Neuts % (Manual) 5 Lymphocytes % (Manual) 9 10 Monocytes % (Manual) 9 H 4 Eosinophils % (Manual) 4 3 Basophils % (Manual) 2 Metamyelocytes % (Man) 2 H Myelocytes % (Man) 1 H 1 H Abs Neuts (Manual) 9.8 H 12.8 H Differential Comment . . Platelet Estimate Normal Normal Platelet Morphology Normal Normal Lab - Chemistry Results 05/07/18 05/08/18 03:47 04:34 Sodium 150 H 148 H Potassium 3.3 L D 3.9 Chloride 116 H 115 H Carbon Dioxide 25.7 24.5 Anion Gap 8 9 BUN 35 H 29 H Creatinine 1.10 0.95 Estimated GFR 82 L Greater than 89 Random Glucose 87 93 Calcium 8.7 8.7 Magnesium 2.4 2.4 Total Bilirubin 0.2 0.1 L AST 56 H 50 H ALT 27 31 Alkaline Phosphatase 204 H 199 H Total Protein 6.2 L 6.6 Albumin 1.8 L 1.9 L Imaging: ITS Impressions Venous Doppler Study 04/30/18 22:58 CONCLUSION: 1. Negative exam with no evidence of deep venous thrombosis. Cervical Spine MRI 05/01/18 00:00 CONCLUSION: 1. The bony structures appear intact. The disc appears grossly intact with normal signal. No abnormal areas of enhancement are seen in the cervical spine. 2. Minimal disc bulge at the C6-C7 level. Head CT 05/01/18 00:00 CONCLUSION: 1. No acute hemorrhage or mass effect.. 2. Moderate size retention cyst in left maxillary sinus. There is mucosal thickening in the ethmoidal air cells. . Head MRI 05/01/18 00:00 CONCLUSION: 1. No acute intracranial abnormality is seen. 2. Minimal suspected small vessels ischemic change in the white matter. 3. Sinus disease. Knee MRI 05/01/18 00:00 CONCLUSION: 1. Limited MRI examination secondary to the knee prosthesis. An area of signal abnormality within the bony structures is not clearly identified. Susceptibility artifact does limit the evaluation. 2. No joint effusion. 3. No soft tissue fluid collections are seen. Lumbar Spine MRI 05/01/18 00:00 CONCLUSION: 1. The bones and discs demonstrate normal signal. 2. Minimal disc bulge at the L4-L5 level. 3. Lower lumbar facet hypertrophy. Thoracic Spine MRI 05/01/18 00:00 CONCLUSION: Negative thoracic spine MRI examination. Lumbar Spine CT 05/01/18 00:05 CONCLUSION: 1. No underlying bony abnormality. There is no evidence to suggest osteomyelitis. 2. Mild to moderate central canal stenosis at L2-3 secondary to disc bulge and degenerative change involving the facets. 3. Milder disc bulges at the L3-4 and L4-5 levels with mild flattening the anterior thecal sac and no focal protrusion. 4. Degenerative changes involving the lower facet joints. Thoracic Spine CT 05/01/18 00:05 CONCLUSION: 1. Mild chronic appearing wedging of several of the midthoracic vertebral bodies. 2. No destructive change or sclerosis. Abdomen/Pelvis CT 05/01/18 00:12 CONCLUSION: 1. Unremarkable bowel gas pattern with no evidence of obstruction. 2. Unremarkable appearing kidneys. 3. Nasogastric tube in place with fluid in the distal esophagus. Chest CT 05/01/18 00:20 CONCLUSION: 1. Tiny bilateral pleural effusions. 2. Nasogastric tube in place with fluid surrounding the tube in the esophagus. Is nonspecific. 3. Apparent atelectasis in the dependent portions of lung bases. 4. The study is degraded by motion streak artifact. Chest X-Ray 05/02/18 00:00 CONCLUSION: 1. Minimal central pulmonary vascular congestion. 2. Minimal bibasilar atelectasis. 3. Cardiomegaly. 4. Endotracheal tube and nasogastric tube in good positions. Physical Exam: GENERAL: NAD not sedated since this am intubated SKIN: Warm and dry. HEAD: Atraumatic. Normocephalic. EYES: Pupils equal and round. No scleral icterus. No injection or drainage. ENT: No nasal bleeding or discharge. Mucous membranes pink and moist. NECK: Trachea midline. No JVD. CARDIOVASCULAR: Regular rate and rhythm. RESPIRATORY: No accessory muscle use. Clear to auscultation. Breath sounds equal bilaterally. GASTROINTESTINAL: Abdomen soft, non-tender, nondistended. Hepatic and splenic margins not palpable. MUSCULOSKELETAL: Extremities without clubbing, cyanosis, + 1 edema, more prominent on LLE. No obvious deformities. NEUROLOGICAL: opens eyes to voice responsive but nnot following commands PSYCHIATRIC: unable to assess Assessment and Plan - Plan Suspected acute bacterial meningitis - other ethiologies herpetic meningitis, fungal meningitis sepsis ? L knee prosthetic joint infection dw Dr Wagner: in Sep pt took 2 weeks of abx (doxy, bactrim) MR knee w/o fluid collections Acute VDRF - resulved PLAN: Monitor CSF clx and patricia antigens cont ceftriaxone cont Rocephine , fu CSF studies until final dw RN dw family @ b/s
[2018-05-09] MEDS: Labetalol HCl Inj 100 MG/20 ML Vial IV.PUSH PRN (02:02)
[2018-05-09] MEDS: Heparin - SQ 10,000 UNITS/ML Vial SQ SCH ×3 (02:02→18:09)
[2018-05-09] MEDS: hydrALAZINE HCl Inj 20 MG/ML Vial IV.PUSH PRN (03:08)
[2018-05-09 03:52] LABS: N Meningitidis B/EColi K1 Not Detected (Not Detected)
[2018-05-09] MEDS: Oral Hygiene Kit OROPHARYNG SCH ×3 (03:58→18:09)
[2018-05-09 06:03] LABS: Alanine Aminotransferase 48 U/L (12-78); Anion Gap 10 meq/L (5-15); Aspartate Aminotransferase 66 U/L (15-37); Blood Urea Nitrogen 26 mg/dL (7-18); Calcium 8.4 mg/dL (8.5-10.1); Carbon Dioxide 23.6 meq/L (21.0-32.0); Chloride 113 meq/L (98-107); Glomerular Filtration Rate 82 mL/min (>89); Glucose,Random 91 mg/dL (74-106); Magnesium 2.3 mg/dL (1.5-2.5); Potassium 3.6 meq/L (3.5-5.1)
[2018-05-09 06:05] LABS: Alkaline Phosphatase 206 U/L (45-117); Total Protein 6.7 g/dL (6.4-8.2)
[2018-05-09 06:11] LABS: Sodium 147 meq/L (136-145)
--- NOTE | 2018-05-09 07:42 | P.PNIM ---
Subjective Interval history: f/u; possible meningitis in no acute distress. somewhat tachypneic. denies headache. still with swollen, painful left knee. no fever. Physical Exam Vital signs: Vital Signs 05/08/18 08:00 05/08/18 08:30 05/08/18 09:00 Temperature Pulse Rate 97 H 97 H 97 H Respiratory Rate 39 H 21 15 Blood Pressure 183/85 H 185/86 H Pulse Oximetry 93 L 92 L 92 L 05/08/18 09:01 05/08/18 09:31 05/08/18 10:00 Temperature Pulse Rate 98 H 94 H 93 H Respiratory Rate 14 22 24 Blood Pressure 180/84 H 180/82 H 177/81 H Pulse Oximetry 93 L 94 L 92 L 05/08/18 10:31 05/08/18 11:00 05/08/18 11:30 Temperature Pulse Rate 93 H 93 H 96 H Respiratory Rate 37 H 38 H 40 H Blood Pressure 179/78 H 180/84 H 175/83 H Pulse Oximetry 94 L 92 L 92 L 05/08/18 12:00 05/08/18 12:30 05/08/18 13:00 Temperature Pulse Rate 96 H 95 H 97 H Respiratory Rate 42 H 44 H 46 H Blood Pressure 189/88 H 190/88 H 180/87 H Pulse Oximetry 91 L 91 L 91 L 05/08/18 13:30 05/08/18 14:00 05/08/18 14:30 Temperature Pulse Rate 99 H 95 H 95 H Respiratory Rate 39 H 28 H 33 H Blood Pressure 173/81 H 172/81 H 177/84 H Pulse Oximetry 92 L 92 L 92 L 05/08/18 15:00 05/08/18 15:30 05/08/18 16:00 Temperature Pulse Rate 100 H 100 H 101 H Respiratory Rate 45 H 42 H 38 H Blood Pressure 175/82 H 183/84 H 195/86 H Pulse Oximetry 91 L 92 L 92 L 05/08/18 16:30 05/08/18 17:00 05/08/18 17:31 Temperature Pulse Rate 104 H 107 H 113 H Respiratory Rate 44 H 47 H 44 H Blood Pressure 210/98 H 212/98 H 236/127 H Pulse Oximetry 91 L 91 L 94 L 05/08/18 18:00 05/08/18 18:01 05/08/18 18:30 Temperature Pulse Rate 108 H 109 H 109 H Respiratory Rate 47 H 49 H 48 H Blood Pressure 209/98 H 203/96 H Pulse Oximetry 91 L 93 L 90 L 05/08/18 19:00 05/08/18 19:31 05/08/18 20:00 Temperature 98.9 F Pulse Rate 112 H 111 H 114 H Respiratory Rate 47 H 46 H 46 H Blood Pressure 213/97 H 203/95 H 213/99 H Pulse Oximetry 90 L 91 L 88 L 05/08/18 20:31 05/08/18 21:00 05/08/18 21:01 Temperature Pulse Rate 114 H 113 H 112 H Respiratory Rate 50 H 50 H 50 H Blood Pressure 216/98 H 197/92 H Pulse Oximetry 90 L 88 L 91 L 05/08/18 21:30 05/08/18 22:00 05/08/18 22:15 Temperature Pulse Rate 100 H 96 H 93 H Respiratory Rate 50 H 49 H 48 H Blood Pressure 192/89 H 200/93 H 174/74 H Pulse Oximetry 90 L 90 L 89 L 05/08/18 22:31 05/08/18 22:45 05/08/18 23:00 Temperature Pulse Rate 92 H 96 H 97 H Respiratory Rate 48 H 49 H 47 H Blood Pressure 186/87 H 191/88 H 195/92 H Pulse Oximetry 93 L 91 L 91 L 05/08/18 23:15 05/08/18 23:30 05/08/18 23:45 Temperature Pulse Rate 100 H 104 H 106 H Respiratory Rate 48 H 48 H 47 H Blood Pressure 194/91 H 187/81 H 189/85 H Pulse Oximetry 92 L 91 L 91 L 05/08/18 23:48 05/09/18 00:00 05/09/18 00:15 Temperature Pulse Rate 106 H 107 H Respiratory Rate 49 H 48 H Blood Pressure 185/84 H 191/89 H Pulse Oximetry 92 L 90 L 89 L 05/09/18 00:30 05/09/18 00:45 05/09/18 01:00 Temperature Pulse Rate 108 H 108 H 105 H Respiratory Rate 52 H 51 H 48 H Blood Pressure 191/88 H 191/93 H 178/86 H Pulse Oximetry 89 L 89 L 88 L 05/09/18 01:15 05/09/18 01:30 05/09/18 01:45 Temperature Pulse Rate 108 H 109 H 109 H Respiratory Rate 49 H 51 H 52 H Blood Pressure 184/87 H 185/88 H 190/94 H Pulse Oximetry 89 L 89 L 89 L 05/09/18 02:00 05/09/18 02:41 05/09/18 03:00 Temperature Pulse Rate 109 H 101 H 104 H Respiratory Rate 51 H 52 H 50 H Blood Pressure 182/91 H 192/91 H 211/93 H Pulse Oximetry 89 L 87 L 88 L 05/09/18 03:31 05/09/18 03:32 05/09/18 04:00 Temperature Pulse Rate 107 H 109 H Respiratory Rate 39 H 49 H Blood Pressure 202/88 H 198/86 H Pulse Oximetry 91 L 93 L 89 L 05/09/18 04:30 05/09/18 05:00 05/09/18 05:30 Temperature Pulse Rate 108 H 109 H 109 H Respiratory Rate 47 H 50 H 50 H Blood Pressure 199/85 H 196/88 H 194/82 H Pulse Oximetry 88 L 87 L 88 L 05/09/18 06:00 05/09/18 07:12 Temperature Pulse Rate 109 H Respiratory Rate 44 H Blood Pressure 181/81 H Pulse Oximetry 91 L 92 L Intake & Output 05/08/18 05/09/18 05/09/18 18:59 06:59 18:59 Intake Total 1300 / 1300 400 / 400 Output Total 1300 / 1300 1150 / 1150 Balance 0 / 0 -750 / -750 Weight 143 kg Intake: IV 1100 / 1100 100 / 100 1/2 Normal Saline Inj 1,000 ML 1000 / 1000 @ 84 mls/hr IV.CONT .[id number] [facility] Rx#:[id number] Rocephin Inj 2,000 MG In NS Inj 100 / 100 100 / 100 100 ML @ 200 mls/hr IV.SIG Q12H [facility] Rx#:[id number] Oral 200 / 200 300 / 300 Output: Urine 1300 / 1300 1150 / 1150 Other: Date of Last Bowel Movement 05/07/18 05/09/18 # Incontinent Bowel Movements 1 - Constitutional no acute distress - Routine Respiratory Exam Present: CTA bilaterally - Routine Cardiovascular Exam Present: RRR - Routine Abdominal Exam Present: soft - Routine Extremities Exam Comments: swollen, tender left knee. - Routine Neurological Exam Present: alert, oriented X3 - Urinary Catheter Management Indwelling Urethral Catheter Cath placed during this visit: yes, but has since been removed by the nurse Reason for continuing: Decision to DC catheter Insertion date: 04/30/18 Insertion time: 23:30 Removal date: 05/03/18 Removal time: 15:00 Results - Labs CBC & Chem 7: 05/08/18 04:34 05/09/18 03:49 Laboratory Results - last 24 hr 05/01/18 05/08/18 05/09/18 04:10 04:34 03:49 WBC Differential Manual diff final Seg Neuts % (Manual) 73 H Band Neuts % (Manual) 5 Lymphocytes % (Manual) 10 Monocytes % (Manual) 4 Eosinophils % (Manual) 3 Basophils % (Manual) 2 Metamyelocytes % (Man) 2 H Myelocytes % (Man) 1 H Abs Neuts (Manual) 12.8 H Platelet Estimate Normal Platelet Morphology Normal Sodium 147 H Potassium 3.6 Chloride 113 H Carbon Dioxide 23.6 Anion Gap 10 BUN 26 H Creatinine 1.10 Estimated GFR 82 L Random Glucose 91 Calcium 8.4 L Magnesium 2.3 Total Bilirubin 0.2 AST 66 H ALT 48 Alkaline Phosphatase 206 H Total Protein 6.7 Albumin 2.0 L CSF N.mening B/E.coli K1 Not detected CSF N.meningitidis A/Y Not detected H.influenzae Type B Ag Not detected N. meningitidis C/W 135 Not detected Group B Strep Antigen Not detected S. pneumoniae Antigen Not detected Assessment and Plan - Plan A/P - acute respiratory failure- s/p intubation/ extubation now on N/C; will continue with oxygen to keep O2 sat >90%. Continue nebs PRN Incentive spirometer Encourage deep breathing/ coughing -possible meningitis -possible left knee prosthetic joint infection Blood cultures, CSF, and urine cultures all no growth to date Influenza and MRSA swab negative ID recommendations appreciated Continue rocephin Hypertension Echo from 05/02 showed EF 60%, PAP 45 mmHg, mild concentric LVH and mildly dilated LA continue Metoprolol, Lisinopril and Lasix- will add Amlodipine; continue to monitor and adjust the regimen as needed. Dysphagia ST following PROPHY: -SCDs, SQH -Pepcid PT eval/ out of bed to chair today will transfer to floor within the next 24 hrs if stable.
[2018-05-09] MEDS: Furosemide Liq 40 MG/5 ML UDC PO SCH ×2 (08:31→18:09)
[2018-05-09] MEDS: Famotidine 20 MG Tablet PO SCH ×2 (08:33→20:44)
[2018-05-09] MEDS: Lisinopril 20 MG Tablet PO SCH (08:33)
[2018-05-09] MEDS: Nortriptyline 25 MG Capsule PO SCH (08:34)
[2018-05-09 08:36] LABS: Baso # (Auto) 0.1 th/mm3 (0.0-0.2); Baso % (Auto) 0.3 % (0.0-2.0); Eos # (Auto) 0.2 th/mm3 (0.0-0.4); Hematocrit 31.4 % (39.0-51.0); Hemoglobin 10.1 gm/dL (13.0-17.0); Lymph # (Auto) 2.1 th/mm3 (1.0-4.8); Lymph % (Auto) 10.7 % (9.0-44.0); Mean Corpuscular HGB Conc 32.2 % (32.0-36.0); Mean Corpuscular Hemoglobin 28.8 pg (27.0-34.0); Mean Corpuscular Volume 89.7 fL (80.0-100.0); Mean Platelet Volume 8.7 fL (7.0-11.0); Mono % (Auto) 10.1 % (0.0-8.0); Neut # (Auto) 15.3 th/mm3 (1.8-7.7); Neut % (Auto) 77.9 % (16.0-70.0); Platelet Count 300 th/mm3 (150-450); White Blood Count 19.7 th/mm3 (4.0-11.0)
[2018-05-09] MEDS ORDERED: amLODIPine 5 MG Tablet PO SCH (09:00)
[2018-05-09 09:53] LABS: Eosinophils 1 % (0-4); Lymphocytes 9 % (9-44); Monocytes 10 % (0-8); Platelet Estimate Normal (Normal); Platelet Morphology Normal (Normal); Promyelocyte 1 % (0-0)
[2018-05-09] MEDS: Metoprolol Tartrate 100 MG Tablet PO SCH ×2 (12:36→20:44)
[2018-05-09] MEDS: Chlorhexidine 0.12% Oral Kit 15 ML UDC OROPHARYNG SCH ×2 (12:36→19:27)
[2018-05-09] MEDS: Senna/Docusate Sodium 8.6/50 MG Tablet PO SCH ×2 (12:37→20:45)
[2018-05-09] MEDS: Acetaminophen 325 MG Tablet PO PRN (20:43)
[2018-05-10] MEDS: Oral Hygiene Kit OROPHARYNG SCH ×4 (00:06→18:32)
[2018-05-10] MEDS: Heparin - SQ 10,000 UNITS/ML Vial SQ SCH ×3 (03:37→18:32)
--- NOTE | 2018-05-10 07:13 | P.PNIM ---
Subjective Interval history: f/u; hypertension/ respiratory failure in no acute distress. on three liters of oxygen via N/C. had a fever last night; T max 100.6. denies pain. BP trend noted. d/w the RN. Physical Exam Vital signs: Vital Signs 05/09/18 07:12 05/09/18 07:30 05/09/18 08:00 Temperature Pulse Rate 110 H 108 H Respiratory Rate 47 H 44 H Blood Pressure 189/86 H 192/86 H Pulse Oximetry 92 L 89 L 89 L 05/09/18 08:30 05/09/18 08:58 05/09/18 09:00 Temperature Pulse Rate 109 H 107 H 105 H Respiratory Rate 50 H 12 21 Blood Pressure 198/89 H 190/86 H Pulse Oximetry 88 L 91 L 05/09/18 09:30 05/09/18 10:00 05/09/18 10:30 Temperature Pulse Rate 96 H 93 H 95 H Respiratory Rate 13 49 H 44 H Blood Pressure 185/80 H 177/81 H 171/77 H Pulse Oximetry 87 L 89 L 90 L 05/09/18 11:00 05/09/18 11:30 05/09/18 12:00 Temperature Pulse Rate 100 H 104 H 108 H Respiratory Rate 49 H 46 H 35 H Blood Pressure 173/86 H 187/89 H 198/93 H Pulse Oximetry 92 L 91 L 90 L 05/09/18 12:30 05/09/18 13:00 05/09/18 13:30 Temperature Pulse Rate 107 H 110 H 110 H Respiratory Rate 51 H 46 H 37 H Blood Pressure 205/95 H 204/91 H 211/99 H Pulse Oximetry 92 L 89 L 90 L 05/09/18 14:00 05/09/18 14:31 05/09/18 15:00 Temperature Pulse Rate 116 H 114 H 109 H Respiratory Rate 32 H 20 3 L Blood Pressure 198/79 H 199/79 H 176/85 H Pulse Oximetry 89 L 92 L 90 L 05/09/18 15:30 05/09/18 16:00 05/09/18 16:30 Temperature Pulse Rate 106 H 109 H 111 H Respiratory Rate 14 3 L 1 L Blood Pressure 185/84 H 194/90 H 202/91 H Pulse Oximetry 90 L 91 L 89 L 05/09/18 17:00 05/09/18 17:30 05/09/18 18:00 Temperature Pulse Rate 114 H 112 H 117 H Respiratory Rate 0 L 46 H 52 H Blood Pressure 199/91 H 204/91 H 173/123 H Pulse Oximetry 90 L 88 L 90 L 05/09/18 18:31 05/09/18 19:00 05/09/18 19:30 Temperature Pulse Rate 120 H 112 H 109 H Respiratory Rate 50 H 29 H 15 Blood Pressure 184/74 H 186/79 H 184/80 H Pulse Oximetry 90 L 90 L 90 L 05/09/18 19:59 05/09/18 20:00 05/09/18 20:30 Temperature 100.6 F H Pulse Rate 111 H 109 H Respiratory Rate 12 51 H Blood Pressure 182/81 H 187/88 H Pulse Oximetry 94 L 92 L 89 L 05/09/18 21:00 05/09/18 21:30 05/09/18 22:00 Temperature 98.9 F Pulse Rate 109 H 101 H 97 H Respiratory Rate 46 H 40 H 32 H Blood Pressure 190/86 H 187/85 H 178/80 H Pulse Oximetry 90 L 91 L 92 L 05/09/18 22:30 05/09/18 23:00 05/09/18 23:30 Temperature Pulse Rate 90 84 96 H Respiratory Rate 16 45 H 26 H Blood Pressure 171/85 H 167/79 H 182/85 H Pulse Oximetry 93 L 92 L 97 05/10/18 00:00 05/10/18 00:30 05/10/18 01:00 Temperature Pulse Rate 95 H 93 H 93 H Respiratory Rate 41 H 31 H 25 H Blood Pressure 179/91 H 181/81 H 184/81 H Pulse Oximetry 98 100 99 05/10/18 01:30 05/10/18 02:00 05/10/18 02:30 Temperature Pulse Rate 92 H 92 H 91 H Respiratory Rate 36 H 8 L 27 H Blood Pressure 181/82 H 187/84 H 177/79 H Pulse Oximetry 96 98 97 05/10/18 03:00 05/10/18 03:30 05/10/18 04:00 Temperature Pulse Rate 88 92 H 95 H Respiratory Rate 26 H 27 H 25 H Blood Pressure 180/82 H 182/87 H 189/84 H Pulse Oximetry 96 99 98 05/10/18 04:31 05/10/18 05:00 05/10/18 05:31 Temperature Pulse Rate 96 H 97 H 98 H Respiratory Rate 38 H 37 H 35 H Blood Pressure 200/95 H 200/91 H 200/93 H Pulse Oximetry 98 97 98 05/10/18 06:00 Temperature Pulse Rate 98 H Respiratory Rate 30 H Blood Pressure 196/91 H Pulse Oximetry 99 Intake & Output 05/09/18 05/10/18 05/10/18 18:59 06:59 18:59 Intake Total 340 / 340 400 / 400 Output Total 650 / 650 800 / 800 Balance -310 / -310 -400 / -400 Weight 140 kg Intake: IV 100 / 100 100 / 100 Rocephin Inj 2,000 MG In NS Inj 100 / 100 100 / 100 100 ML @ 200 mls/hr IV.SIG Q12H [facility] Rx#:[id number] Oral 240 / 240 300 / 300 Output: Urine 650 / 650 800 / 800 Other: Date of Last Bowel Movement 05/09/18 05/10/18 # Bowel Movements 1 # Incontinent Bowel Movements 3 - Constitutional mild distress - Routine Respiratory Exam Present: CTA bilaterally - Routine Cardiovascular Exam Present: RRR - Routine Abdominal Exam Present: soft - Routine Extremities Exam Comments: bilateral pedal edema. - Routine Neurological Exam Present: alert, oriented X3 - Urinary Catheter Management Indwelling Urethral Catheter Cath placed during this visit: yes, but has since been removed by the nurse Reason for continuing: Decision to DC catheter Insertion date: 04/30/18 Insertion time: 23:30 Removal date: 05/03/18 Removal time: 15:00 Results - Labs CBC & Chem 7: 05/10/18 08:07 05/09/18 03:49 Laboratory Results - last 24 hr 05/09/18 08:01 WBC 19.7 H RBC 3.50 L Hgb 10.1 L Hct 31.4 L MCV 89.7 MCH 28.8 MCHC 32.2 RDW 18.0 H Plt Count 300 MPV 8.7 Prelim Diff (Auto) Slide review pending Neut % (Auto) 77.9 H Lymph % (Auto) 10.7 [place] % (Auto) 10.1 H Eos % (Auto) 1.0 Baso % (Auto) 0.3 Neut # (Auto) 15.3 H Lymph # (Auto) 2.1 [place] # (Auto) 2.0 H Eos # (Auto) 0.2 Baso # (Auto) 0.1 WBC Differential Manual diff final Seg Neuts % (Manual) 76 H Band Neuts % (Manual) 3 Lymphocytes % (Manual) 9 Monocytes % (Manual) 10 H Eosinophils % (Manual) 1 Promyelocytes % (Man) 1 H Abs Neuts (Manual) 15.8 H Differential Comment . Platelet Estimate Normal Platelet Morphology Normal Assessment and Plan - Plan A/P - acute respiratory failure- s/p intubation/ extubation -fever with worsening leukocytosis now on N/C; will continue with oxygen to keep O2 sat >90%. Continue nebs PRN Incentive spirometer Encourage deep breathing/ coughing repeat CXR today -possible meningitis -possible left knee prosthetic joint infection Blood cultures, CSF, and urine cultures all no growth to date Influenza and MRSA swab negative MRI knee with no joint effusion or soft tissue fluid collection. ID recommendations appreciated Continue Rocephin Hypertension Echo from 05/02 showed EF 60%, PAP 45 mmHg, mild concentric LVH and mildly dilated LA continue Metoprolol, Lisinopril and Lasix- will add Amlodipine and Hydralazine ; continue to monitor and adjust the regimen as needed. Dysphagia ST following PROPHY: -SCDs, SQH -Pepcid continue PT. will transfer to floor within the next 24 hrs if stable. Discharge Planning: SNF when medically stable.
[2018-05-10 08:40] LABS: Baso # (Auto) 0.1 th/mm3 (0.0-0.2); Baso % (Auto) 0.6 % (0.0-2.0); Eos # (Auto) 0.3 th/mm3 (0.0-0.4); Eos % (Auto) 1.5 % (0.0-4.0); Hematocrit 30.5 % (39.0-51.0); Hemoglobin 9.9 gm/dL (13.0-17.0); Lymph # (Auto) 1.6 th/mm3 (1.0-4.8); Lymph % (Auto) 7.8 % (9.0-44.0); Mean Corpuscular HGB Conc 32.3 % (32.0-36.0); Mean Corpuscular Hemoglobin 29.2 pg (27.0-34.0); Mean Corpuscular Volume 90.2 fL (80.0-100.0); Mean Platelet Volume 9.3 fL (7.0-11.0); Mono # (Auto) 1.9 th/mm3 (0.0-0.9); Mono % (Auto) 9.1 % (0.0-8.0); Neut # (Auto) 16.8 th/mm3 (1.8-7.7); Platelet Count 295 th/mm3 (150-450); Red Blood Count 3.38 mil/mm3 (4.50-5.90); Red Cell Distribution Width 17.9 % (11.6-17.2); White Blood Count 20.7 th/mm3 (4.0-11.0)
[2018-05-10] MEDS: Nortriptyline 25 MG Capsule PO SCH (08:52)
[2018-05-10] MEDS: hydrALAZINE 10 MG Tablet PO SCH ×3 (08:52→18:32)
[2018-05-10] MEDS: Lisinopril 20 MG Tablet PO SCH (08:52)
[2018-05-10] MEDS: Chlorhexidine 0.12% Oral Kit 15 ML UDC OROPHARYNG SCH ×2 (08:52→19:52)
[2018-05-10] MEDS: Famotidine 20 MG Tablet PO SCH ×2 (08:53→21:03)
[2018-05-10] MEDS: amLODIPine 10 MG Tablet PO SCH (08:53)
[2018-05-10] MEDS: Furosemide Liq 40 MG/5 ML UDC PO SCH ×2 (08:54→18:32)
[2018-05-10] MEDS: Metoprolol Tartrate 100 MG Tablet PO SCH ×2 (08:54→21:03)
[2018-05-10 09:40] LABS: Lymphocytes 4 % (9-44); Metamyelocytes 3 % (0-1); Monocytes 7 % (0-8); Plasma Cells 1 % (0-0); Platelet Estimate Normal (Normal); Platelet Morphology Normal (Normal); Toxic Granulation 2+
--- NOTE | 2018-05-10 15:26 | XR ---
EXAM DATE: 05/10/2018 3:22 PM EST AGE/SEX: 62 years / Male INDICATIONS: Shortness of breath and cough. CLINICAL DATA: This is the patient's subsequent encounter. Patient reports that signs and symptoms h ave been present for 1 week and indicates a pain score of 0/10. MEDICAL/SURGICAL HISTORY: . UTI, Cellulitis, AMS. Non-responsive. COMPARISON: [facility], CHEST 1V SINGLE AP, 05/02/2018. . FINDINGS: The film is degraded by respiratory and patient motion. There appears to be mild vascular congestion without definite infiltrate or effusion. Borderline heart size. CONCLUSION: Mild vascular congestion Electronically signed by: Alexsander Ramos MD 05/10/2018 3:25 PM EST
[2018-05-10] MEDS: Senna/Docusate Sodium 8.6/50 MG Tablet PO SCH ×2 (16:16→21:03)
[2018-05-11] MEDS: Oral Hygiene Kit OROPHARYNG SCH ×4 (00:06→15:14)
[2018-05-11] MEDS: Heparin - SQ 10,000 UNITS/ML Vial SQ SCH ×3 (03:54→18:10)
[2018-05-11 05:34] LABS: Anion Gap 7 meq/L (5-15); Blood Urea Nitrogen 21 mg/dL (7-18); Calcium 7.7 mg/dL (8.5-10.1); Carbon Dioxide 26.2 meq/L (21.0-32.0); Chloride 109 meq/L (98-107); Glomerular Filtration Rate Greater Than 89 mL/min (>89); Glucose,Random 96 mg/dL (74-106); Potassium 3.8 meq/L (3.5-5.1)
[2018-05-11 05:38] LABS: Sodium 142 meq/L (136-145)
[2018-05-11 09:12] LABS: Baso % (Auto) 0.2 % (0.0-2.0); Eos # (Auto) 0.5 th/mm3 (0.0-0.4); Eos % (Auto) 2.7 % (0.0-4.0); Hemoglobin 9.9 gm/dL (13.0-17.0); Lymph # (Auto) 1.5 th/mm3 (1.0-4.8); Lymph % (Auto) 8.5 % (9.0-44.0); Mean Corpuscular HGB Conc 32.9 % (32.0-36.0); Mean Corpuscular Hemoglobin 29.3 pg (27.0-34.0); Mean Corpuscular Volume 88.8 fL (80.0-100.0); Mean Platelet Volume 9.3 fL (7.0-11.0); Mono # (Auto) 2.1 th/mm3 (0.0-0.9); Mono % (Auto) 12.3 % (0.0-8.0); Neut % (Auto) 76.3 % (16.0-70.0); Platelet Count 298 th/mm3 (150-450); Red Blood Count 3.38 mil/mm3 (4.50-5.90); Red Cell Distribution Width 17.4 % (11.6-17.2)
[2018-05-11] MEDS: Chlorhexidine 0.12% Oral Kit 15 ML UDC OROPHARYNG SCH ×2 (09:18→20:30)
[2018-05-11] MEDS: amLODIPine 10 MG Tablet PO SCH (09:20)
[2018-05-11] MEDS: Famotidine 20 MG Tablet PO SCH ×2 (09:20→21:00)
[2018-05-11] MEDS: hydrALAZINE 10 MG Tablet PO SCH ×3 (09:20→18:10)
[2018-05-11] MEDS: Metoprolol Tartrate 100 MG Tablet PO SCH ×2 (09:20→21:00)
[2018-05-11] MEDS: Senna/Docusate Sodium 8.6/50 MG Tablet PO SCH ×2 (09:20→20:30)
[2018-05-11] MEDS: Lisinopril 20 MG Tablet PO SCH (09:20)
[2018-05-11] MEDS: Nortriptyline 25 MG Capsule PO SCH (09:20)
[2018-05-11] MEDS: Furosemide Liq 40 MG/5 ML UDC PO SCH ×2 (09:24→18:15)
--- NOTE | 2018-05-11 09:46 | P.PNIM ---
Subjective Interval history: Patient is more alert today. No complaints today. No fevers overnight. Physical Exam Vital signs: Vital Signs 05/10/18 10:00 05/10/18 10:31 05/10/18 11:00 Temperature Pulse Rate 97 H 77 89 Respiratory Rate 16 13 19 Blood Pressure 163/82 H 196/72 H Pulse Oximetry 94 L 96 87 L 05/10/18 11:01 05/10/18 11:30 05/10/18 12:00 Temperature Pulse Rate 87 79 86 Respiratory Rate 43 H 36 H 39 H Blood Pressure 132/85 139/93 H 181/86 H Pulse Oximetry 83 L 95 94 L 05/10/18 12:30 05/10/18 13:00 05/10/18 13:30 Temperature Pulse Rate 89 87 95 H Respiratory Rate 37 H 17 36 H Blood Pressure 167/86 H 172/88 H 153/75 H Pulse Oximetry 94 L 99 99 05/10/18 14:00 05/10/18 14:30 05/10/18 15:00 Temperature Pulse Rate 95 H 90 89 Respiratory Rate 40 H 4 L 13 Blood Pressure 137/66 144/69 H 139/65 Pulse Oximetry 96 93 L 95 05/10/18 15:31 05/10/18 16:00 05/10/18 16:02 Temperature Pulse Rate 87 99 H 103 H Respiratory Rate 39 H 36 H 33 H Blood Pressure 173/73 H 137/60 Pulse Oximetry 98 96 100 05/10/18 16:30 05/10/18 17:00 05/10/18 17:30 Temperature Pulse Rate 99 H 104 H 103 H Respiratory Rate 33 H 33 H 32 H Blood Pressure 142/67 H 146/68 H 148/68 H Pulse Oximetry 98 98 98 05/10/18 18:00 05/10/18 18:30 05/10/18 19:00 Temperature Pulse Rate 100 H 99 H 111 H Respiratory Rate 35 H 32 H 11 L Blood Pressure 145/64 H 146/64 H 145/68 H Pulse Oximetry 99 97 94 L 05/10/18 19:30 05/10/18 20:00 05/10/18 20:18 Temperature 98.4 F Pulse Rate 108 H 107 H Respiratory Rate 29 H 18 Blood Pressure 145/67 H 143/67 H Pulse Oximetry 95 96 99 05/10/18 20:30 05/10/18 21:00 05/10/18 21:31 Temperature Pulse Rate 108 H 106 H 101 H Respiratory Rate 22 18 22 Blood Pressure 143/74 H 157/70 H 136/75 Pulse Oximetry 94 L 94 L 100 05/10/18 22:00 05/10/18 22:30 05/10/18 23:00 Temperature Pulse Rate 90 84 87 Respiratory Rate 37 H 32 H 32 H Blood Pressure 129/61 118/61 134/62 Pulse Oximetry 100 95 93 L 05/10/18 23:31 05/11/18 00:00 05/11/18 00:01 Temperature Pulse Rate 86 84 85 Respiratory Rate 35 H 35 H 34 H Blood Pressure 138/61 174/69 H Pulse Oximetry 95 99 92 L 05/11/18 00:31 05/11/18 01:00 05/11/18 01:31 Temperature Pulse Rate 86 89 93 H Respiratory Rate 31 H 34 H 32 H Blood Pressure 129/61 132/60 158/69 H Pulse Oximetry 100 98 99 05/11/18 02:00 05/11/18 02:30 05/11/18 03:00 Temperature Pulse Rate 89 93 H 93 H Respiratory Rate 26 H 28 H 35 H Blood Pressure 134/63 136/63 144/73 H Pulse Oximetry 100 96 93 L 05/11/18 03:30 05/11/18 04:00 05/11/18 06:00 Temperature Pulse Rate 92 H 97 H 96 H Respiratory Rate 33 H 33 H Blood Pressure 149/67 H 133/63 Pulse Oximetry 99 99 05/11/18 08:19 Temperature Pulse Rate Respiratory Rate Blood Pressure Pulse Oximetry 100 Intake & Output 05/10/18 05/11/18 05/11/18 18:59 06:59 18:59 Intake Total 320 / 320 250 / 250 Output Total 1200 / 1200 700 / 700 Balance -880 / -880 -450 / -450 Weight 138.5 kg Intake: IV 100 / 100 100 / 100 Rocephin Inj 2,000 MG In NS Inj 100 / 100 100 / 100 100 ML @ 200 mls/hr IV.SIG Q12H [facility] Rx#:[id number] Oral 220 / 220 150 / 150 Output: Urine 1200 / 1200 700 / 700 Other: Date of Last Bowel Movement 05/10/18 05/11/18 # Incontinent Bowel Movements 2 3 Narrative: GENERAL: NAD, A&Ox3. Oxygen in place with nasal cannula. HEAD: Normocephalic. NECK: Supple, trachea midline. No lymphadenopathy. EYES: No scleral icterus. No injection or drainage. CARDIOVASCULAR: Regular rate and rhythm without murmurs, gallops, or rubs. RESPIRATORY: Breath sounds equal bilaterally. No accessory muscle use. GASTROINTESTINAL: Abdomen soft, non-tender, nondistended. MUSCULOSKELETAL: No cyanosis, or edema. SKIN: Warm and dry. NEURO: No focal neurological deficits. Generalized weakness. - Urinary Catheter Management Indwelling Urethral Catheter Cath placed during this visit: yes, but has since been removed by the nurse Reason for continuing: Decision to DC catheter Insertion date: 04/30/18 Insertion time: 23:30 Removal date: 05/03/18 Removal time: 15:00 Results - Labs CBC & Chem 7: 05/11/18 04:22 05/11/18 04:22 Laboratory Results - last 24 hr 05/10/18 05/11/18 05/11/18 08:07 04:22 04:22 WBC 17.0 H RBC 3.38 L Hgb 9.9 L Hct 30.0 L MCV 88.8 MCH 29.3 MCHC 32.9 RDW 17.4 H Plt Count 298 MPV 9.3 Neut % (Auto) 76.3 H Lymph % (Auto) 8.5 L Dooly % (Auto) 12.3 H Eos % (Auto) 2.7 Baso % (Auto) 0.2 Neut # (Auto) 13.0 H Lymph # (Auto) 1.5 Dooly # (Auto) 2.1 H Eos # (Auto) 0.5 H Baso # (Auto) 0.0 WBC Differential Manual diff final . Seg Neuts % (Manual) 80 H Band Neuts % (Manual) 5 Lymphocytes % (Manual) 4 L Monocytes % (Manual) 7 Metamyelocytes % (Man) 3 H Plasma Cell % (Manual) 1 H Abs Neuts (Manual) 18.2 H Differential Comment Auto diff final Toxic Granulation 2+ H Platelet Estimate Normal Platelet Morphology Normal Sodium 142 Potassium 3.8 Chloride 109 H Carbon Dioxide 26.2 Anion Gap 7 BUN 21 H Creatinine 1.00 Estimated GFR Greater than 89 Random Glucose 96 Calcium 7.7 L - Imaging Impressions Chest X-Ray 05/10/18 00:00 CONCLUSION: Mild vascular congestion Assessment and Plan - Plan 62 year old male admitted due to respiratory failure and FUO Acute respiratory failure Improving Status post extubation Continue oxygen supplementation Continue duo nebs Continue incentive spirometer Fever of unknown origin Leukocytosis No fevers overnight Follow CBC ID following Continue Rocephin Hypertension Improved on current treatments Continue metoprolol Continue lisinopril Continue Lasix Continue amlodipine Continue hydralazine Follow blood pressures Dysphagia ST following DVT prophylaxis Continue heparin SCDs Generalized weakness continue PT Discharge Planning Anticipate SNF when medically stabilized
[2018-05-12] MEDS: Oral Hygiene Kit OROPHARYNG SCH ×5 (00:39→23:54)
[2018-05-12] MEDS: Heparin - SQ 10,000 UNITS/ML Vial SQ SCH ×3 (02:36→18:18)
[2018-05-12] MEDS: Acetaminophen 325 MG Tablet PO PRN (05:23)
[2018-05-12 07:21] LABS: Baso # (Auto) 0.1 th/mm3 (0.0-0.2); Baso % (Auto) 0.4 % (0.0-2.0); Eos # (Auto) 0.4 th/mm3 (0.0-0.4); Eos % (Auto) 2.6 % (0.0-4.0); Hematocrit 28.8 % (39.0-51.0); Hemoglobin 9.6 gm/dL (13.0-17.0); Lymph # (Auto) 1.9 th/mm3 (1.0-4.8); Lymph % (Auto) 11.7 % (9.0-44.0); Mean Corpuscular HGB Conc 33.5 % (32.0-36.0); Mean Corpuscular Hemoglobin 29.8 pg (27.0-34.0); Mean Corpuscular Volume 88.9 fL (80.0-100.0); Mean Platelet Volume 9.1 fL (7.0-11.0); Mono # (Auto) 1.7 th/mm3 (0.0-0.9); Mono % (Auto) 10.5 % (0.0-8.0); Neut % (Auto) 74.8 % (16.0-70.0); Platelet Count 316 th/mm3 (150-450); Red Blood Count 3.24 mil/mm3 (4.50-5.90); Red Cell Distribution Width 17.2 % (11.6-17.2)
[2018-05-12 07:45] LABS: Alanine Aminotransferase 87 U/L (12-78); Albumin 2.1 g/dL (3.4-5.0); Anion Gap 8 meq/L (5-15); Aspartate Aminotransferase 90 U/L (15-37); Blood Urea Nitrogen 19 mg/dL (7-18); Calcium 8.2 mg/dL (8.5-10.1); Carbon Dioxide 28.3 meq/L (21.0-32.0); Chloride 105 meq/L (98-107); Glomerular Filtration Rate Greater Than 89 mL/min (>89); Glucose,Random 96 mg/dL (74-106); Potassium 3.3 meq/L (3.5-5.1); Sodium 141 meq/L (136-145)
[2018-05-12 07:47] LABS: Alkaline Phosphatase 213 U/L (45-117); Total Protein 7.1 g/dL (6.4-8.2)
[2018-05-12] MEDS: Nortriptyline 25 MG Capsule PO SCH (09:58)
[2018-05-12] MEDS: hydrALAZINE 10 MG Tablet PO SCH ×3 (09:59→18:18)
[2018-05-12] MEDS: amLODIPine 10 MG Tablet PO SCH (09:59)
[2018-05-12] MEDS: Metoprolol Tartrate 100 MG Tablet PO SCH ×2 (10:00→20:26)
[2018-05-12] MEDS: Furosemide Liq 40 MG/5 ML UDC PO SCH ×2 (10:00→18:30)
[2018-05-12] MEDS: Famotidine 20 MG Tablet PO SCH ×2 (10:00→20:26)
[2018-05-12] MEDS: Lisinopril 20 MG Tablet PO SCH (10:00)
[2018-05-12] MEDS: Senna/Docusate Sodium 8.6/50 MG Tablet PO SCH ×2 (10:01→20:27)
[2018-05-12] MEDS: Chlorhexidine 0.12% Oral Kit 15 ML UDC OROPHARYNG SCH ×2 (10:02→20:25)
--- NOTE | 2018-05-12 14:39 | P.PN ---
Subjective Interval history: Follow-up for altered mental status, respiratory failure. Patient is currently doing well. He is pleasant and coherent. No chest pain, shortness of breath, fever or chills. He is currently on 2 L of oxygen via nasal cannula. Physical Exam Vital signs: Vital Signs 05/11/18 16:00 05/11/18 20:00 05/11/18 20:18 Temperature 99.5 F 99.5 F Pulse Rate 91 H 92 H Respiratory Rate 32 H 15 Blood Pressure 172/77 H 163/75 H Pulse Oximetry 94 L 94 L 97 05/11/18 22:13 05/12/18 00:00 05/12/18 04:00 Temperature 100 F H 98.4 F 98 F Pulse Rate 77 84 93 H Respiratory Rate 22 20 22 Blood Pressure 128/65 149/69 H 138/72 Pulse Oximetry 97 98 98 05/12/18 08:00 Temperature 98.5 F Pulse Rate 89 Respiratory Rate 13 Blood Pressure 131/75 Pulse Oximetry 99 Intake & Output 05/11/18 05/12/18 05/12/18 18:59 06:59 18:59 Intake Total 100 / 100 200 / 200 100 / 100 Output Total 1600 / 1600 750 / 750 Balance -1500 / -1500 -550 / -550 100 / 100 Weight 134.6 kg Intake: IV 100 / 100 80 / 80 100 / 100 Rocephin Inj 2,000 MG In NS Inj 100 / 100 80 / 80 100 / 100 100 ML @ 200 mls/hr IV.SIG Q12H [facility] Rx#:[id number] Oral 120 / 120 Output: Urine 1600 / 1600 750 / 750 Other: Date of Last Bowel Movement 05/11/18 05/11/18 05/12/18 # Incontinent Bowel Movements 1 Narrative: GENERAL: Alert, oriented x3, NAD. SKIN: Warm and dry. HEAD: Normocephalic. EYES: No scleral icterus. No injection or drainage. NECK: Supple, trachea midline. No JVD or lymphadenopathy. CARDIOVASCULAR: Regular rate and rhythm without murmurs, gallops, or rubs. RESPIRATORY: Breath sounds equal bilaterally. No accessory muscle use. GASTROINTESTINAL: Abdomen soft, non-tender, nondistended. MUSCULOSKELETAL: No cyanosis. Lower extremity 1+ edema. BACK: Nontender without obvious deformity. No CVA tenderness. - Urinary Catheter Management Indwelling Urethral Catheter Cath placed during this visit: yes, but has since been removed by the nurse Reason for continuing: Decision to DC catheter Insertion date: 04/30/18 Insertion time: 23:30 Removal date: 05/03/18 Removal time: 15:00 Results - Labs CBC & Chem 7: 05/12/18 06:40 05/12/18 06:40 Laboratory Results - last 24 hr 05/12/18 05/12/18 06:40 06:40 WBC 16.0 H RBC 3.24 L Hgb 9.6 L Hct 28.8 L MCV 88.9 MCH 29.8 MCHC 33.5 RDW 17.2 Plt Count 316 MPV 9.1 Neut % (Auto) 74.8 H Lymph % (Auto) 11.7 Gaines % (Auto) 10.5 H Eos % (Auto) 2.6 Baso % (Auto) 0.4 Neut # (Auto) 12.0 H Lymph # (Auto) 1.9 Gaines # (Auto) 1.7 H Eos # (Auto) 0.4 Baso # (Auto) 0.1 WBC Differential . Differential Comment Auto diff final Sodium 141 Potassium 3.3 L Chloride 105 Carbon Dioxide 28.3 Anion Gap 8 BUN 19 H Creatinine 1.01 Estimated GFR Greater than 89 Random Glucose 96 Calcium 8.2 L Total Bilirubin 0.2 AST 90 H ALT 87 H Alkaline Phosphatase 213 H Total Protein 7.1 Albumin 2.1 L - Imaging Chest X-Ray 04/30/18 22:58 CONCLUSION: No acute cardiopulmonary disease. Venous Doppler Study 04/30/18 22:58 CONCLUSION: 1. Negative exam with no evidence of deep venous thrombosis. Cervical Spine MRI 05/01/18 00:00 CONCLUSION: 1. The bony structures appear intact. The disc appears grossly intact with normal signal. No abnormal areas of enhancement are seen in the cervical spine. 2. Minimal disc bulge at the C6-C7 level. Head CT 05/01/18 00:00 CONCLUSION: 1. No acute hemorrhage or mass effect.. 2. Moderate size retention cyst in left maxillary sinus. There is mucosal thickening in the ethmoidal air cells. . Head MRI 05/01/18 00:00 CONCLUSION: 1. No acute intracranial abnormality is seen. 2. Minimal suspected small vessels ischemic change in the white matter. 3. Sinus disease. Knee MRI 05/01/18 00:00 CONCLUSION: 1. Limited MRI examination secondary to the knee prosthesis. An area of signal abnormality within the bony structures is not clearly identified. Susceptibility artifact does limit the evaluation. 2. No joint effusion. 3. No soft tissue fluid collections are seen. Lumbar Spine MRI 05/01/18 00:00 CONCLUSION: 1. The bones and discs demonstrate normal signal. 2. Minimal disc bulge at the L4-L5 level. 3. Lower lumbar facet hypertrophy. Thoracic Spine MRI 05/01/18 00:00 CONCLUSION: Negative thoracic spine MRI examination. Lumbar Spine CT 05/01/18 00:05 CONCLUSION: 1. No underlying bony abnormality. There is no evidence to suggest osteomyelitis. 2. Mild to moderate central canal stenosis at L2-3 secondary to disc bulge and degenerative change involving the facets. 3. Milder disc bulges at the L3-4 and L4-5 levels with mild flattening the anterior thecal sac and no focal protrusion. 4. Degenerative changes involving the lower facet joints. Thoracic Spine CT 05/01/18 00:05 CONCLUSION: 1. Mild chronic appearing wedging of several of the midthoracic vertebral bodies. 2. No destructive change or sclerosis. Abdomen/Pelvis CT 05/01/18 00:12 CONCLUSION: 1. Unremarkable bowel gas pattern with no evidence of obstruction. 2. Unremarkable appearing kidneys. 3. Nasogastric tube in place with fluid in the distal esophagus. Chest CT 05/01/18 00:20 CONCLUSION: 1. Tiny bilateral pleural effusions. 2. Nasogastric tube in place with fluid surrounding the tube in the esophagus. Is nonspecific. 3. Apparent atelectasis in the dependent portions of lung bases. 4. The study is degraded by motion streak artifact. Chest X-Ray 05/02/18 00:00 CONCLUSION: 1. Minimal central pulmonary vascular congestion. 2. Minimal bibasilar atelectasis. 3. Cardiomegaly. 4. Endotracheal tube and nasogastric tube in good positions. Chest X-Ray 05/10/18 00:00 CONCLUSION: Mild vascular congestion - Procedures Lumbar puncture 05/01/2018 Assessment and Plan - Plan Mr. Whitt is a pleasant 62-year-old -[place] male who was admitted to critical care unit due to altered mental status. He was intermittently confused. He was found to have a fever of 104.1 F in the emergency department. Due to confusion and concern over airway protection, patient was intubated by ED attending. He came in with acute kidney injury which got worse during the first few days of hospitalization but improved later on. Due to concern over bacterial meningitis, infectious disease was consulted. Patient was extubated on 05/06/2018. 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 Patient is at his baseline now. Blood cultures, CSF and urine cultures are unremarkable. Prior ID recommendations, patient is currently on ceftriaxone 2 g every 12 hours. Acute respiratory failure currently resolved Status post intubation, extubated on 05/06/2018. Continue nasal cannula oxygen. We will obtain a walk test tomorrow. Hypertension Hyperlipidemia Continue amlodipine 10 mg daily, hydralazine 10 mg p.o. 3 times daily, lisinopril 20 mg p.o. daily, metoprolol 100 mg p.o. twice daily Continue statin. Dysphagia Currently on pured diet with nectar thick liquids. Full code. Heparin SQ. Discharge plan: Patient/family are interested in [facility]. Will discuss with CM tomorrow regarding SNF/[facility].
[2018-05-13] MEDS: Heparin - SQ 10,000 UNITS/ML Vial SQ SCH ×3 (03:03→18:17)
[2018-05-13] MEDS: Oral Hygiene Kit OROPHARYNG SCH ×3 (03:04→15:58)
[2018-05-13] MEDS: Acetaminophen 325 MG Tablet PO PRN (03:07)
[2018-05-13] MEDS: hydrALAZINE HCl Inj 20 MG/ML Vial IV.PUSH PRN (04:46)
[2018-05-13] MEDS: Chlorhexidine 0.12% Oral Kit 15 ML UDC OROPHARYNG SCH ×2 (09:05→20:51)
[2018-05-13] MEDS: Metoprolol Tartrate 100 MG Tablet PO SCH ×2 (09:07→20:50)
[2018-05-13] MEDS: Lisinopril 20 MG Tablet PO SCH (09:08)
[2018-05-13] MEDS: Nortriptyline 25 MG Capsule PO SCH (09:08)
[2018-05-13] MEDS: amLODIPine 10 MG Tablet PO SCH (09:08)
[2018-05-13] MEDS: Famotidine 20 MG Tablet PO SCH ×2 (09:08→20:50)
[2018-05-13] MEDS: hydrALAZINE 10 MG Tablet PO SCH ×3 (09:08→17:33)
[2018-05-13] MEDS: Furosemide Liq 40 MG/5 ML UDC PO SCH ×2 (09:24→17:33)
[2018-05-13] MEDS: Senna/Docusate Sodium 8.6/50 MG Tablet PO SCH ×2 (09:25→20:50)
--- NOTE | 2018-05-13 14:27 | P.PN ---
Subjective Interval history: Follow-up for altered mental status, respiratory failure and previously treated for suspected meningitis. Patient is doing well. Had a fever of 100.6 last night and today around 99F. He has no acute concerns. He remains pleasant and coherent. Wants to go home. Physical Exam Vital signs: Vital Signs 05/12/18 16:00 05/12/18 20:00 05/13/18 04:45 Temperature 99.0 F 100.6 F H Pulse Rate 86 90 83 Respiratory Rate 14 18 Blood Pressure 156/70 H 137/82 Pulse Oximetry 100 96 05/13/18 05:25 05/13/18 08:00 05/13/18 12:00 Temperature 99.0 F 99.2 F Pulse Rate 93 H 92 H 75 Respiratory Rate 21 19 Blood Pressure 158/74 H 187/73 H 157/77 H Pulse Oximetry 95 95 Intake & Output 05/12/18 05/13/18 05/13/18 18:59 06:59 18:59 Intake Total 580 / 580 590 / 590 100 / 100 Balance 580 / 580 590 / 590 100 / 100 Weight 134.6 kg Intake: IV 100 / 100 110 / 110 100 / 100 Rocephin Inj 2,000 MG In NS Inj 100 / 100 110 / 110 100 / 100 100 ML @ 200 mls/hr IV.SIG Q12H [facility] Rx#:[id number] Oral 480 / 480 480 / 480 Other: # Incontinent Voids 4 2 Date of Last Bowel Movement 05/12/18 05/12/18 05/12/18 # Incontinent Bowel Movements 2 Narrative: GENERAL: Alert, oriented x3, NAD. SKIN: Warm and dry. HEAD: Normocephalic. EYES: No scleral icterus. No injection or drainage. NECK: Supple, trachea midline. No JVD or lymphadenopathy. CARDIOVASCULAR: Regular rate and rhythm without murmurs, gallops, or rubs. RESPIRATORY: Breath sounds equal bilaterally. No accessory muscle use. GASTROINTESTINAL: Abdomen soft, non-tender, nondistended. MUSCULOSKELETAL: No cyanosis. Lower extremity 1+ edema. BACK: Nontender without obvious deformity. No CVA tenderness. - Urinary Catheter Management Indwelling Urethral Catheter Cath placed during this visit: yes, but has since been removed by the nurse Reason for continuing: Decision to DC catheter Insertion date: 04/30/18 Insertion time: 23:30 Removal date: 05/03/18 Removal time: 15:00 Results - Labs CBC & Chem 7: 05/12/18 06:40 05/12/18 06:40 - Procedures Lumbar puncture 05/01/2018 Assessment and Plan - Plan Mr. Whitt is a pleasant 62-year-old -[place] male who was admitted to critical care unit due to altered mental status. He was intermittently confused. He was found to have a fever of 104.1 F in the emergency department. Due to confusion and concern over airway protection, patient was intubated by ED attending. He came in with acute kidney injury which got worse during the first few days of hospitalization but improved later on. Due to concern over bacterial meningitis, infectious disease was consulted. Patient was extubated on 05/06/2018. 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 Patient is at his baseline now. Blood cultures, CSF and urine cultures are unremarkable. Prior ID recommendations, patient is currently on ceftriaxone 2 g every 12 hours. Persistent low grade fever -Possibly due to abx. Discussed with ID - Dr. Ashley plans to evaluate him today. Acute respiratory failure currently resolved Status post intubation, extubated on 05/06/2018. Continue nasal cannula oxygen. Will walk test today. Hypertension Hyperlipidemia Continue amlodipine 10 mg daily, hydralazine 10 mg p.o. 3 times daily, lisinopril 20 mg p.o. daily, metoprolol 100 mg p.o. twice daily Continue statin. Dysphagia Currently on pured diet with nectar thick liquids. Full code. Heparin SQ. Discharge plan: Patient wants to go home. Will arrange home with home health once cleared by ID for discharge.
[2018-05-14] MEDS: Heparin - SQ 10,000 UNITS/ML Vial SQ SCH ×3 (03:09→18:11)
[2018-05-14] MEDS: Oral Hygiene Kit OROPHARYNG SCH ×3 (05:03→18:10)
[2018-05-14] MEDS: Chlorhexidine 0.12% Oral Kit 15 ML UDC OROPHARYNG SCH ×2 (10:10→20:41)
[2018-05-14] MEDS: Furosemide Liq 40 MG/5 ML UDC PO SCH ×2 (10:20→18:10)
[2018-05-14] MEDS: Lisinopril 20 MG Tablet PO SCH (10:21)
[2018-05-14] MEDS: Senna/Docusate Sodium 8.6/50 MG Tablet PO SCH ×2 (10:21→20:42)
[2018-05-14] MEDS: Metoprolol Tartrate 100 MG Tablet PO SCH ×2 (10:21→20:40)
[2018-05-14] MEDS: Famotidine 20 MG Tablet PO SCH ×2 (10:21→20:40)
[2018-05-14] MEDS: Nortriptyline 25 MG Capsule PO SCH (10:21)
[2018-05-14] MEDS: amLODIPine 10 MG Tablet PO SCH (10:21)
[2018-05-14] MEDS: hydrALAZINE 10 MG Tablet PO SCH ×3 (10:22→18:10)
--- NOTE | 2018-05-14 17:53 | P.PNID ---
Subjective Remarks: doing well no headache denies new issues afebrile Antibiotics: started 05/01 2 gm q 8 then changed to CFTX Rocephine Allergies/Adverse Reactions: Allergies No Known Allergies Allergy (Verified 04/25/18 16:10) Objective Vital Signs 05/13/18 20:00 05/14/18 00:00 05/14/18 03:49 Temperature 100.8 F H 98.7 F 98.5 F Pulse Rate 100 H 86 92 H Respiratory Rate 20 20 20 Blood Pressure 162/72 H 160/76 H 182/81 H Pulse Oximetry 97 93 L 93 L 05/14/18 04:00 05/14/18 08:00 05/14/18 12:00 Temperature 98.6 F 98.0 F Pulse Rate 92 H 94 H 78 Respiratory Rate 20 20 Blood Pressure 170/90 H 151/87 H Pulse Oximetry 96 93 L 05/14/18 16:00 Temperature 99.0 F Pulse Rate 85 Respiratory Rate 20 Blood Pressure 153/86 H Pulse Oximetry 94 L Intake & Output 05/13/18 05/14/18 05/14/18 18:59 06:59 18:59 Intake Total 100 / 100 150 / 150 Output Total 2575 / 2575 Balance -2475 / -2475 150 / 150 Weight 129.2 kg Intake: IV 100 / 100 100 / 100 Rocephin Inj 2,000 MG In NS Inj 100 / 100 100 / 100 100 ML @ 200 mls/hr IV.SIG Q12H [facility] Rx#:[id number] Oral 50 / 50 Output: Urine 2575 / 2575 Other: Date of Last Bowel Movement 05/12/18 05/14/18 # Bowel Movements 3 # Incontinent Bowel Movements 3 05/13/18 19:42 Blood - Peripheral Aerobic Blood Culture - Preliminary No growth in 1 day 05/13/18 19:42 Blood - Peripheral Anaerobic Blood Culture - Preliminary No growth in 1 day 05/13/18 19:35 Blood - Peripheral Aerobic Blood Culture - Preliminary No growth in 1 day 05/13/18 19:35 Blood - Peripheral Anaerobic Blood Culture - Preliminary No growth in 1 day Imaging: ITS Impressions Venous Doppler Study 04/30/18 22:58 CONCLUSION: 1. Negative exam with no evidence of deep venous thrombosis. Cervical Spine MRI 05/01/18 00:00 CONCLUSION: 1. The bony structures appear intact. The disc appears grossly intact with normal signal. No abnormal areas of enhancement are seen in the cervical spine. 2. Minimal disc bulge at the C6-C7 level. Head CT 05/01/18 00:00 CONCLUSION: 1. No acute hemorrhage or mass effect.. 2. Moderate size retention cyst in left maxillary sinus. There is mucosal thickening in the ethmoidal air cells. . Head MRI 05/01/18 00:00 CONCLUSION: 1. No acute intracranial abnormality is seen. 2. Minimal suspected small vessels ischemic change in the white matter. 3. Sinus disease. Knee MRI 05/01/18 00:00 CONCLUSION: 1. Limited MRI examination secondary to the knee prosthesis. An area of signal abnormality within the bony structures is not clearly identified. Susceptibility artifact does limit the evaluation. 2. No joint effusion. 3. No soft tissue fluid collections are seen. Lumbar Spine MRI 05/01/18 00:00 CONCLUSION: 1. The bones and discs demonstrate normal signal. 2. Minimal disc bulge at the L4-L5 level. 3. Lower lumbar facet hypertrophy. Thoracic Spine MRI 05/01/18 00:00 CONCLUSION: Negative thoracic spine MRI examination. Lumbar Spine CT 05/01/18 00:05 CONCLUSION: 1. No underlying bony abnormality. There is no evidence to suggest osteomyelitis. 2. Mild to moderate central canal stenosis at L2-3 secondary to disc bulge and degenerative change involving the facets. 3. Milder disc bulges at the L3-4 and L4-5 levels with mild flattening the anterior thecal sac and no focal protrusion. 4. Degenerative changes involving the lower facet joints. Thoracic Spine CT 05/01/18 00:05 CONCLUSION: 1. Mild chronic appearing wedging of several of the midthoracic vertebral bodies. 2. No destructive change or sclerosis. Abdomen/Pelvis CT 05/01/18 00:12 CONCLUSION: 1. Unremarkable bowel gas pattern with no evidence of obstruction. 2. Unremarkable appearing kidneys. 3. Nasogastric tube in place with fluid in the distal esophagus. Chest CT 05/01/18 00:20 CONCLUSION: 1. Tiny bilateral pleural effusions. 2. Nasogastric tube in place with fluid surrounding the tube in the esophagus. Is nonspecific. 3. Apparent atelectasis in the dependent portions of lung bases. 4. The study is degraded by motion streak artifact. Chest X-Ray 05/10/18 00:00 CONCLUSION: Mild vascular congestion Physical Exam: GENERAL: NAD SKIN: Warm and dry. HEAD: Atraumatic. Normocephalic. EYES: Pupils equal and round. No scleral icterus. No injection or drainage. ENT: No nasal bleeding or discharge. Mucous membranes pink and moist. NECK: Trachea midline. No JVD. supple CARDIOVASCULAR: Regular rate and rhythm. RESPIRATORY: No accessory muscle use. Clear to auscultation. Breath sounds equal bilaterally. GASTROINTESTINAL: Abdomen soft, non-tender, nondistended. Hepatic and splenic margins not palpable. MUSCULOSKELETAL: Extremities without clubbing, cyanosis, + 1 edema, more prominent on LLE. No obvious deformities. NEUROLOGICAL: awake alert non focal PSYCHIATRIC: calm and cooperative Assessment and Plan - Plan Suspected acute bacterial meningitis - other ethiologies herpetic meningitis, fungal meningitis sepsis: resolved ? L knee prosthetic joint infection jt Wagner: in Sep pt took 2 weeks of abx (doxy, bactrim) MR knee w/o fluid collections Acute VDRF - resulved PLAN: Monitor CSF clx and patricia antigens complete ceftriaxone today (2 weeks) jt Kinney
--- NOTE | 2018-05-14 18:37 | P.PN ---
Subjective Interval history: Follow-up for altered mental status, respiratory failure and previously treated for suspected meningitis. Patient is resting in bed. No acute concerns. Had low grade fever again last night. Physical Exam Vital signs: Vital Signs 05/13/18 20:00 05/14/18 00:00 05/14/18 03:49 Temperature 100.8 F H 98.7 F 98.5 F Pulse Rate 100 H 86 92 H Respiratory Rate 20 20 20 Blood Pressure 162/72 H 160/76 H 182/81 H Pulse Oximetry 97 93 L 93 L 05/14/18 04:00 05/14/18 08:00 05/14/18 12:00 Temperature 98.6 F 98.0 F Pulse Rate 92 H 94 H 78 Respiratory Rate 20 20 Blood Pressure 170/90 H 151/87 H Pulse Oximetry 96 93 L 05/14/18 16:00 Temperature 99.0 F Pulse Rate 85 Respiratory Rate 20 Blood Pressure 153/86 H Pulse Oximetry 94 L Intake & Output 05/13/18 05/14/18 05/14/18 18:59 06:59 18:59 Intake Total 100 / 100 150 / 150 100 / 100 Output Total 2575 / 2575 Balance -2475 / -2475 150 / 150 100 / 100 Weight 129.2 kg Intake: IV 100 / 100 100 / 100 100 / 100 Rocephin Inj 2,000 MG In NS Inj 100 / 100 100 / 100 100 / 100 100 ML @ 200 mls/hr IV.SIG Q12H VERNON Rx#:[id number] Oral 50 / 50 Output: Urine 2575 / 2575 Other: # Incontinent Voids 3 Date of Last Bowel Movement 05/12/18 05/14/18 # Bowel Movements 3 # Incontinent Bowel Movements 3 1 Narrative: GENERAL: Alert, oriented x3, NAD. SKIN: Warm and dry. HEAD: Normocephalic. EYES: No scleral icterus. No injection or drainage. NECK: Supple, trachea midline. No JVD or lymphadenopathy. CARDIOVASCULAR: Regular rate and rhythm without murmurs, gallops, or rubs. RESPIRATORY: Breath sounds equal bilaterally. No accessory muscle use. GASTROINTESTINAL: Abdomen soft, non-tender, nondistended. MUSCULOSKELETAL: No cyanosis. Lower extremity 1+ edema. BACK: Nontender without obvious deformity. No CVA tenderness. - Urinary Catheter Management Indwelling Urethral Catheter Cath placed during this visit: yes, but has since been removed by the nurse Reason for continuing: Decision to DC catheter Insertion date: 04/30/18 Insertion time: 23:30 Removal date: 05/03/18 Removal time: 15:00 Results - Labs CBC & Chem 7: 05/12/18 06:40 05/12/18 06:40 Microbiology 05/13/18 19:42 Blood - Peripheral Aerobic Blood Culture - Preliminary No growth in 1 day 05/13/18 19:42 Blood - Peripheral Anaerobic Blood Culture - Preliminary No growth in 1 day 05/13/18 19:35 Blood - Peripheral Aerobic Blood Culture - Preliminary No growth in 1 day 05/13/18 19:35 Blood - Peripheral Anaerobic Blood Culture - Preliminary No growth in 1 day - Procedures Lumbar puncture 05/01/2018 Assessment and Plan - Plan Mr. Whitt is a pleasant 62-year-old -[place] male who was admitted to critical care unit due to altered mental status. He was intermittently confused. He was found to have a fever of 104.1 F in the emergency department. Due to confusion and concern over airway protection, patient was intubated by ED attending. He came in with acute kidney injury which got worse during the first few days of hospitalization but improved later on. Due to concern over bacterial meningitis, infectious disease was consulted. Patient was extubated on 05/06/2018. 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 Patient is at his baseline now. Blood cultures, CSF and urine cultures are unremarkable. Prior ID recommendations, patient is currently on ceftriaxone 2 g every 12 hours. Persistent low grade fever -Possibly due to abx. Discussed with ID - Dr. Ashley evaluated patient today. -Ceftriaxone to finish today with a two week course. Acute respiratory failure currently resolved Status post intubation, extubated on 05/06/2018. Continue nasal cannula oxygen. Hypertension Hyperlipidemia Continue amlodipine 10 mg daily, hydralazine 10 mg p.o. 3 times daily, lisinopril 20 mg p.o. daily, metoprolol 100 mg p.o. twice daily Continue statin. Dysphagia Currently on pured diet with nectar thick liquids. Full code. Heparin SQ. Discharge plan: Pending ID clearance for discharge to [facility] or [facility]
[2018-05-15] MEDS: Oral Hygiene Kit OROPHARYNG SCH ×4 (00:56→16:00)
[2018-05-15] MEDS: Heparin - SQ 10,000 UNITS/ML Vial SQ SCH ×3 (03:07→18:20)
[2018-05-15] MEDS: Chlorhexidine 0.12% Oral Kit 15 ML UDC OROPHARYNG SCH ×2 (08:29→22:56)
[2018-05-15] MEDS: Nortriptyline 25 MG Capsule PO SCH (08:44)
[2018-05-15] MEDS: Famotidine 20 MG Tablet PO SCH ×2 (08:44→22:55)
[2018-05-15] MEDS: Furosemide Liq 40 MG/5 ML UDC PO SCH ×2 (08:44→18:20)
[2018-05-15] MEDS: amLODIPine 10 MG Tablet PO SCH (08:44)
[2018-05-15] MEDS: Metoprolol Tartrate 100 MG Tablet PO SCH ×2 (08:44→22:55)
[2018-05-15] MEDS: Lisinopril 20 MG Tablet PO SCH (08:44)
[2018-05-15] MEDS: Senna/Docusate Sodium 8.6/50 MG Tablet PO SCH ×2 (08:44→22:55)
[2018-05-15] MEDS: hydrALAZINE 10 MG Tablet PO SCH ×3 (08:44→18:20)
--- NOTE | 2018-05-15 13:15 | P.DS ---
Date of admission: 05/01/18 01:37 Primary care physician: JOSE CARLOS BEAR Brief History from admission: 62 year old male presents with a history of developing altered mentation earlier in the evening tonight. Patient's family reports that the patient has not been well for the last week, intermittently confused, however it became much worse this evening. They report that they had been trying to convince him to come to the emergency department, however he refused. The patient has a history of having a left knee replacement with chronic intermittent swelling and redness associated with that leg. He has been on antibiotic in the past for this. 3 days ago he developed increased swelling and more redness than ever before earlier today. The patient was experiencing intermittent tremors and rigors throughout the day today. The patient's family reports that approximately a week ago he was seen in the [facility] emergency department related to back pain mainly on the right side of his mid back area. According to the record, he did have a urinalysis done that showed no evidence of infection, however the record from that evaluation revealed that the patient was on Bactrim for some reason the patient's family is unclear about. Unfortunately, the patient himself is unable to provide any significant history as he arrives with a fever of 104.1. In the emergency department he remained tremulous and extremely confused and was intubated by an ED attending for an airway protection. DS: Medications - Discharge Medications Prescriptions: diazepam [Valium] 2.5 mg PO TID PRN #10 tab PRN Reason: muscle spasm DS: Summary Hospital Course: Mr. Whitt is a pleasant 62-year-old -[place]oven[place] male who was admitted to critical care unit due to altered mental status. He was intermittently confused. He was found to have a fever of 104.1 F in the emergency department. Due to confusion and concern over airway protection, patient was intubated by ED attending. He came in with acute kidney injury which got worse during the first few days of hospitalization but improved later on. Due to concern over bacterial meningitis, infectious disease was consulted. Patient was extubated on 05/06/2018. 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 Patient is at his baseline now. Blood cultures, CSF and urine cultures are unremarkable. Per ID recs, patient finished Ceftriaxone on 05/14/2018. Persistent low grade fever -Possibly due to abx or atelectasis. -Use incentive spirometry. Acute respiratory failure currently resolved Status post intubation, extubated on 05/06/2018. Continue nasal cannula oxygen as needed. Hypertension Hyperlipidemia Continue amlodipine 10 mg daily, hydralazine 10 mg p.o. 3 times daily, lisinopril 20 mg p.o. daily, metoprolol 100 mg p.o. twice daily Continue statin. Dysphagia Currently on pured diet with nectar thick liquids. Full code. Heparin SQ for DVT prophylaxis while in the hospital. - Time Spent with Patient Total time spent providing and/or coordinating discharge services: Less than 30 minutes - Quality: VTE Deep Vein Thrombosis/Pulmonary Embolism Present on Admission: No Exam Vital signs: Vital Signs 05/14/18 16:00 05/14/18 20:00 05/15/18 00:00 Temperature 99.0 F 99.3 F 100.0 F H Pulse Rate 85 95 H 84 Respiratory Rate 20 18 18 Blood Pressure 153/86 H 168/76 H 157/78 H Pulse Oximetry 94 L 94 L 94 L 05/15/18 04:00 05/15/18 08:00 Temperature 97.9 F 98.2 F Pulse Rate 84 95 H Respiratory Rate 18 20 Blood Pressure 146/74 H 157/76 H Pulse Oximetry 97 96 Intake & Output 05/14/18 05/15/18 05/15/18 18:59 06:59 18:59 Intake Total 100 / 100 60 / 60 Output Total 600 / 600 Balance 100 / 100 -540 / -540 Weight 127.3 kg Intake: IV 100 / 100 Rocephin Inj 2,000 MG In NS Inj 100 / 100 100 ML @ 200 mls/hr IV.SIG Q12H VERNON Rx#:[id number] Oral 60 / 60 Output: Urine 600 / 600 Other: # Incontinent Voids 3 Date of Last Bowel Movement 05/14/18 # Bowel Movements 1 # Incontinent Bowel Movements 1 Results Procedures completed during hospitalization: Lumbar puncture 05/01/2018 Labs on day of discharge: Preliminary micro results at discharge 05/13/18 19:42 Aerobic Blood Culture - Preliminary Blood - Peripheral No growth in 2 days Anaerobic Blood Culture - Preliminary No growth in 2 days 05/13/18 19:35 Aerobic Blood Culture - Preliminary Blood - Peripheral No growth in 2 days Anaerobic Blood Culture - Preliminary No growth in 2 days - Impressions ITS Impressions Venous Doppler Study 04/30/18 22:58 CONCLUSION: 1. Negative exam with no evidence of deep venous thrombosis. Cervical Spine MRI 05/01/18 00:00 CONCLUSION: 1. The bony structures appear intact. The disc appears grossly intact with normal signal. No abnormal areas of enhancement are seen in the cervical spine. 2. Minimal disc bulge at the C6-C7 level. Head CT 05/01/18 00:00 CONCLUSION: 1. No acute hemorrhage or mass effect.. 2. Moderate size retention cyst in left maxillary sinus. There is mucosal thickening in the ethmoidal air cells. . Head MRI 05/01/18 00:00 CONCLUSION: 1. No acute intracranial abnormality is seen. 2. Minimal suspected small vessels ischemic change in the white matter. 3. Sinus disease. Knee MRI 05/01/18 00:00 CONCLUSION: 1. Limited MRI examination secondary to the knee prosthesis. An area of signal abnormality within the bony structures is not clearly identified. Susceptibility artifact does limit the evaluation. 2. No joint effusion. 3. No soft tissue fluid collections are seen. Lumbar Spine MRI 05/01/18 00:00 CONCLUSION: 1. The bones and discs demonstrate normal signal. 2. Minimal disc bulge at the L4-L5 level. 3. Lower lumbar facet hypertrophy. Thoracic Spine MRI 05/01/18 00:00 CONCLUSION: Negative thoracic spine MRI examination. Lumbar Spine CT 05/01/18 00:05 CONCLUSION: 1. No underlying bony abnormality. There is no evidence to suggest osteomyelitis. 2. Mild to moderate central canal stenosis at L2-3 secondary to disc bulge and degenerative change involving the facets. 3. Milder disc bulges at the L3-4 and L4-5 levels with mild flattening the anterior thecal sac and no focal protrusion. 4. Degenerative changes involving the lower facet joints. Thoracic Spine CT 05/01/18 00:05 CONCLUSION: 1. Mild chronic appearing wedging of several of the midthoracic vertebral bodies. 2. No destructive change or sclerosis. Abdomen/Pelvis CT 05/01/18 00:12 CONCLUSION: 1. Unremarkable bowel gas pattern with no evidence of obstruction. 2. Unremarkable appearing kidneys. 3. Nasogastric tube in place with fluid in the distal esophagus. Chest CT 05/01/18 00:20 CONCLUSION: 1. Tiny bilateral pleural effusions. 2. Nasogastric tube in place with fluid surrounding the tube in the esophagus. Is nonspecific. 3. Apparent atelectasis in the dependent portions of lung bases. 4. The study is degraded by motion streak artifact. Chest X-Ray 05/10/18 00:00 CONCLUSION: Mild vascular congestion Discharge Plan - Discharge Disposition Patient Disposition: 03 Discharge to SNF - Discharge Condition Condition: Good - Discharge Order Discharge Orders: Discharge Order (Routine); Ordered 05/15/18 Ordered By: Mata Kinney - Discharge Details Anticipated Discharge Date: 05/15/18 - Physicians Team Attending Provider: Mata Kinney Other Providers: Merlyn Ashley MD ; [facility]
[2018-05-15 22:32] VITALS: RESP 18
[2018-05-16] MEDS: Oral Hygiene Kit OROPHARYNG SCH ×4 (03:56→17:41)
[2018-05-16] MEDS: Heparin - SQ 10,000 UNITS/ML Vial SQ SCH ×2 (03:56→12:05)
[2018-05-16] MEDS: hydrALAZINE 10 MG Tablet PO SCH ×3 (08:57→17:45)
[2018-05-16] MEDS: Furosemide Liq 40 MG/5 ML UDC PO SCH ×2 (08:57→17:45)
[2018-05-16] MEDS: Metoprolol Tartrate 100 MG Tablet PO SCH (08:57)
[2018-05-16] MEDS: Famotidine 20 MG Tablet PO SCH (08:57)
[2018-05-16] MEDS: amLODIPine 10 MG Tablet PO SCH (08:57)
[2018-05-16] MEDS: Lisinopril 20 MG Tablet PO SCH (08:57)
[2018-05-16] MEDS: Nortriptyline 25 MG Capsule PO SCH (08:57)
[2018-05-16] MEDS: Senna/Docusate Sodium 8.6/50 MG Tablet PO SCH (08:58)
[2018-05-16] MEDS ORDERED: Vancomycin Consult Pharmacy OTHER PRN (10:35)
[2018-05-16] MEDS: Chlorhexidine 0.12% Oral Kit 15 ML UDC OROPHARYNG SCH (10:39)
[2018-05-16] MEDS ORDERED: Vancomycin Inj 1,500 MG in Sodium Chlor 0.9% Inj 500 ML IV.SIG SCH (14:00)
--- NOTE | 2018-05-16 14:13 | P.DIET ---
Nutritional Evaluation Type of nutrition evaluation: follow-up Nutrition consult regarding: Diet Evaluation Subjective Subjective Comments: Eating 0-50% Objective - Diagnosis AMS, frebile illness, UTI, cellulitis - Objective % IBW: 137 (IBW = 190lb) Body Weight Used for Calculations: IBW Energy Needs - Lower Range (kCal/kg): 22 Energy Needs - Upper Range (kCal/kg): 25 Lower Limit kCal/kg (kCals): 1,900 Upper Limit kCal/kg (kCals): 2,159 Lower Limit Protein Factor (Grams per Kg): 1.2 Upper Limit Protein Factor (Grams per Kg): 1.5 Lower Protein Needs (Protein): 103 Upper Protein Needs (Protein): 130 Dietitian Reviewed in Medical Record: Current diet, Curent medications, Intake & Output, Labs, Medical history, Tube feeding Diet Order: Cardiac, Mechanical Soft Objective Comments: PMH: GERD, high cholesterol, HTN Assessment Assessment: Pt extubated and TF d/kenyatta 05/06. PO intake remains poor. Will send Ensure Enlive bid: each 8 oz serving provides 350 kcals and 20 gms protein. Labs, wts and clinical course reviewed. RD following. Recommendations: Diet as ordered Ensure Enlive bid Dietitian to Monitor: Lab values, Intake & Output, Diet tolerance, Weight change , PO Intake, Medical course
--- NOTE | 2018-05-16 15:52 | P.PN ---
Subjective Interval history: Follow-up for altered mental status, respiratory failure and previously treated for suspected meningitis. Patient is doing well. He is resting in bed, no acute concerns. However, family members are concerned about some confusion. Few days ago, he apparently said the current President is Juan. Today patient says President is Gagan Springer. Afebrile. Physical Exam Vital signs: Vital Signs 05/15/18 16:00 05/15/18 16:22 05/15/18 20:00 Temperature 98.2 F 99.4 F Pulse Rate 86 96 H Respiratory Rate 20 18 Blood Pressure 145/88 H 143/67 H Pulse Oximetry 96 95 Pulse Oximetry [Resting on Room Air] 93 L Pulse Oximetry [Resting with Oxygen] 95 05/16/18 00:00 05/16/18 08:00 05/16/18 12:00 Temperature 99.4 F 98.0 F 99.0 F Pulse Rate 101 H 79 75 Respiratory Rate 18 18 18 Blood Pressure 128/67 151/74 H 155/69 H Pulse Oximetry 93 L 97 96 Pulse Oximetry [Resting on Room Air] Pulse Oximetry [Resting with Oxygen] Intake & Output 05/15/18 05/16/18 05/16/18 18:59 06:59 18:59 Intake Total 320 / 320 0 / 0 Balance 320 / 320 0 / 0 Intake: Oral 320 / 320 0 / 0 Other: # Voids 6 8 Date of Last Bowel Movement 05/16/18 # Bowel Movements 4 3 Narrative: GENERAL: Alert, oriented to person, place, year, NAD. SKIN: Warm and dry. HEAD: Normocephalic. EYES: No scleral icterus. No injection or drainage. NECK: Supple, trachea midline. No JVD or lymphadenopathy. CARDIOVASCULAR: Regular rate and rhythm without murmurs, gallops, or rubs. RESPIRATORY: Breath sounds equal bilaterally. No accessory muscle use. GASTROINTESTINAL: Abdomen soft, non-tender, nondistended. MUSCULOSKELETAL: No cyanosis. trace edema. BACK: Nontender without obvious deformity. No CVA tenderness. - Urinary Catheter Management Indwelling Urethral Catheter Cath placed during this visit: yes, but has since been removed by the nurse Reason for continuing: Decision to DC catheter Insertion date: 04/30/18 Insertion time: 23:30 Removal date: 05/03/18 Removal time: 15:00 Results - Labs CBC & Chem 7: 05/12/18 06:40 05/12/18 06:40 Microbiology 05/13/18 19:42 Blood - Peripheral Aerobic Blood Culture - Preliminary Staphylococcus coag negative 05/13/18 19:42 Blood - Peripheral Anaerobic Blood Culture - Preliminary No growth in 3 days 05/13/18 19:35 Blood - Peripheral Aerobic Blood Culture - Preliminary No growth in 3 days 05/13/18 19:35 Blood - Peripheral Anaerobic Blood Culture - Preliminary No growth in 3 days - Procedures Lumbar puncture 05/01/2018 Assessment and Plan - Plan Mr. Whitt is a pleasant 62-year-old -[place]ub[place] male who was admitted to critical care unit due to altered mental status. He was intermittently confused. He was found to have a fever of 104.1 F in the emergency department. Due to confusion and concern over airway protection, patient was intubated by ED attending. He came in with acute kidney injury which got worse during the first few days of hospitalization but improved later on. Due to concern over bacterial meningitis, infectious disease was consulted. Patient was extubated on 05/06/2018. 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 Patient is at his baseline now. Blood cultures, CSF and urine cultures are unremarkable. Per ID, ceftriaxone given until 05/14/2018. -On 05/16/2018, a blood cx from 05/13 shows possible GPC growth. However, it proved to be coag negative staph. -Discussed with ID - no further abx, Vancomycin discontinued. Patient is being discharged to SNF. Acute respiratory failure currently resolved Status post intubation, extubated on 05/06/2018. Continue nasal cannula oxygen. Hypertension Hyperlipidemia Continue amlodipine 10 mg daily, hydralazine 10 mg p.o. 3 times daily, lisinopril 20 mg p.o. daily, metoprolol 100 mg p.o. twice daily Continue statin. Dysphagia Currently on pured diet with nectar thick liquids. Some confusion - possibly due to hospitalization. No sign of infection. Confusion could also be related to meningitis. Overall, we feel that it would be in the best interest of this patient to get physical rehab at SNF then go home in his home environment. Full code. Heparin SQ.
[2018-05-16 18:43] VITALS: BP 179/70; PULSE 88; TEMP 99.5; O2SAT 100
--- NOTE | 2018-05-16 19:02 | P.PNID ---
Subjective Remarks: doing well afebrile 1 bottle of blood cultures came back + for coag neg staph Antibiotics: started 05/01 2 gm q 8 then changed to CFTX Allergies/Adverse Reactions: Allergies No Known Allergies Allergy (Verified 04/25/18 16:10) Objective Vital Signs 05/15/18 20:00 05/16/18 00:00 05/16/18 08:00 Temperature 99.4 F 99.4 F 98.0 F Pulse Rate 96 H 101 H 79 Respiratory Rate 18 18 18 Blood Pressure 143/67 H 128/67 151/74 H Pulse Oximetry 95 93 L 97 05/16/18 12:00 05/16/18 16:00 Temperature 99.0 F 99.5 F Pulse Rate 75 88 Respiratory Rate 18 18 Blood Pressure 155/69 H 179/70 H Pulse Oximetry 96 100 Intake & Output 05/15/18 05/16/18 05/16/18 18:59 06:59 18:59 Intake Total 320 / 320 0 / 0 Balance 320 / 320 0 / 0 Intake: Oral 320 / 320 0 / 0 Other: # Voids 6 8 # Incontinent Voids 3 Date of Last Bowel Movement 05/16/18 # Bowel Movements 4 3 2 05/13/18 19:42 Blood - Peripheral Aerobic Blood Culture - Preliminary Staphylococcus coag negative 05/13/18 19:42 Blood - Peripheral Anaerobic Blood Culture - Preliminary No growth in 3 days 05/13/18 19:35 Blood - Peripheral Aerobic Blood Culture - Preliminary No growth in 3 days 05/13/18 19:35 Blood - Peripheral Anaerobic Blood Culture - Preliminary No growth in 3 days Imaging: ITS Impressions Venous Doppler Study 04/30/18 22:58 CONCLUSION: 1. Negative exam with no evidence of deep venous thrombosis. Cervical Spine MRI 05/01/18 00:00 CONCLUSION: 1. The bony structures appear intact. The disc appears grossly intact with normal signal. No abnormal areas of enhancement are seen in the cervical spine. 2. Minimal disc bulge at the C6-C7 level. Head CT 05/01/18 00:00 CONCLUSION: 1. No acute hemorrhage or mass effect.. 2. Moderate size retention cyst in left maxillary sinus. There is mucosal thickening in the ethmoidal air cells. . Head MRI 05/01/18 00:00 CONCLUSION: 1. No acute intracranial abnormality is seen. 2. Minimal suspected small vessels ischemic change in the white matter. 3. Sinus disease. Knee MRI 05/01/18 00:00 CONCLUSION: 1. Limited MRI examination secondary to the knee prosthesis. An area of signal abnormality within the bony structures is not clearly identified. Susceptibility artifact does limit the evaluation. 2. No joint effusion. 3. No soft tissue fluid collections are seen. Lumbar Spine MRI 05/01/18 00:00 CONCLUSION: 1. The bones and discs demonstrate normal signal. 2. Minimal disc bulge at the L4-L5 level. 3. Lower lumbar facet hypertrophy. Thoracic Spine MRI 05/01/18 00:00 CONCLUSION: Negative thoracic spine MRI examination. Lumbar Spine CT 05/01/18 00:05 CONCLUSION: 1. No underlying bony abnormality. There is no evidence to suggest osteomyelitis. 2. Mild to moderate central canal stenosis at L2-3 secondary to disc bulge and degenerative change involving the facets. 3. Milder disc bulges at the L3-4 and L4-5 levels with mild flattening the anterior thecal sac and no focal protrusion. 4. Degenerative changes involving the lower facet joints. Thoracic Spine CT 05/01/18 00:05 CONCLUSION: 1. Mild chronic appearing wedging of several of the midthoracic vertebral bodies. 2. No destructive change or sclerosis. Abdomen/Pelvis CT 05/01/18 00:12 CONCLUSION: 1. Unremarkable bowel gas pattern with no evidence of obstruction. 2. Unremarkable appearing kidneys. 3. Nasogastric tube in place with fluid in the distal esophagus. Chest CT 05/01/18 00:20 CONCLUSION: 1. Tiny bilateral pleural effusions. 2. Nasogastric tube in place with fluid surrounding the tube in the esophagus. Is nonspecific. 3. Apparent atelectasis in the dependent portions of lung bases. 4. The study is degraded by motion streak artifact. Chest X-Ray 05/10/18 00:00 CONCLUSION: Mild vascular congestion Physical Exam: GENERAL: NAD SKIN: Warm and dry. HEAD: Atraumatic. Normocephalic. EYES: Pupils equal and round. No scleral icterus. No injection or drainage. ENT: No nasal bleeding or discharge. Mucous membranes pink and moist. NECK: Trachea midline. No JVD. supple CARDIOVASCULAR: Regular rate and rhythm. RESPIRATORY: No accessory muscle use. Clear to auscultation. Breath sounds equal bilaterally. GASTROINTESTINAL: Abdomen soft, non-tender, nondistended. Hepatic and splenic margins not palpable. MUSCULOSKELETAL: Extremities without clubbing, cyanosis, + 1 edema, more prominent on LLE. No obvious deformities. NEUROLOGICAL: awake alert non focal PSYCHIATRIC: calm and cooperative Assessment and Plan - Plan Suspected acute bacterial meningitis - other ethiologies herpetic meningitis, fungal meningitis sepsis: resolved ? L knee prosthetic joint infection jt Wganer: in Sep pt took 2 weeks of abx (doxy, bactrim) MR knee w/o fluid collections Acute VDRF - resulved Low grade coag neg staph bacteremia, doubt clin significance Low grade fever PLAN: OK to dc home MOnitor cultures untill final dw Dr Kinney
[2018-05-18] MEDS ORDERED: Pharmacy Ordered Lab Info OTHER ONE (01:45)
== END 2018-05-16 19:03 ==
LOC: NEPC 22:29 → NEDA 05-01 01:37 → HIMC 05-01 07:35 → N04 05-11 21:41
PROVIDERS: ADMIT Hospitalist; ATTEND Hospitalist